=== PATIENT | male | born 1955 | race Caucasian/White ===

== ENCOUNTER → 2018-01-06 18:34 | Outpatient (REF) | payer MEDICARE, SELFPAY | LOC: LAB 18:34 | PROVIDERS: Visit Provider Podiatrist ==

== ENCOUNTER → 2018-01-21 10:39 | Outpatient (CLI) | payer MEDICARE, SELFPAY ==
--- NOTE | 2018-01-21 10:54 | US_ITS ---
US Arterial Ankle Brachial Ind INDICATION: Current smoker, hypertension, diabetes, hyperlipidemia, bilateral rest pain, bilateral claudication ORDERING PHYSICIAN: Melvi Velasquez DPM PATIENT AGE: 62 years TECHNIQUE: Segmental pressures obtained of both right and left leg. These are compared to brachial blood pressure to yield index at each level sampled including summary MANOLO. The data sheets from the procedure are available in PACS FINDINGS Rest study only performed today No prior studies available for comparison. Blood pressures reported are in millimeters mercury. RIGHT LEG MANLOO = 1.1. Right TBI 1.1 Brachial BP: 170 Thigh BP: 182 Calf BP: 179 Ankle PT: 186 Ankle DP : 191 Digit =169 LEFT LEG MANOLO = 1.1 Left TBI 1.1 Brachial BPD: 165 Thigh BP: 176 Calf BP: 186 Ankle PT:188 Ankle DP: 187 Digit = 167 Pulses and waveforms: Normal IMPRESSION: The ABIs and TBIs as reported above are within normal limits. Waveforms and pulses are also unremarkable.
== END ==
PROVIDERS: PCP Internal Medicine Adolescent Medicine; Visit Provider Podiatrist
DX: L97.929 Non-pressure chronic ulcer of unspecified part of left lower leg with unspecified severity (principal); I73.9 Peripheral vascular disease, unspecified
CPT/HCPCS: 93922

== ENCOUNTER → 2018-01-30 13:36 | Outpatient (POV) | payer MEDICARE, SELFPAY | PROVIDERS: PCP Internal Medicine Adolescent Medicine; Visit Provider Podiatrist | DX: Z00.00 Encounter for general adult medical examination without abnormal findings (principal) ==

== ENCOUNTER → 2018-02-02 12:01 | Outpatient (CLI) | payer MEDICARE, SELFPAY ==
[2018-02-02 13:47] LABS: Anion Gap 12.9 mEq/L (5-15); Blood Urea Nitrogen 14 mg/dL (7-18); Carbon Dioxide 32 mmol/L (21.0-32.0); Chloride 103 mmol/L (98-107); Creatinine,Serum 1.39 mg/dL (0.70-1.30); Estimated Glomerular Filt Rate 52 ml/min (>60); GFR (African American) 63 ML/MIN (>60); Glucose 93 mg/dL (74-106); Potassium 4.9 mmoL/L (3.5-5.1); Sodium 143 mmol/L (136-145)
== END ==
PROVIDERS: PCP Internal Medicine Adolescent Medicine; Visit Provider Internal Medicine Adolescent Medicine
DX: N18.1 Chronic kidney disease, stage 1 (principal); I12.9 Hypertensive chronic kidney disease with stage 1 through stage 4 chronic kidney disease, or unspecified chronic kidney disease
CPT/HCPCS: 36415; 80048

== ENCOUNTER → 2018-10-06 08:42 | Outpatient (CLI) | payer MEDICARE, SELFPAY ==
--- NOTE | 2018-10-06 08:46 | XR_ITS ---
XR DEXA axial skeleton HISTORY: ITS.REASON: AUTOMATION DEVELOPER USE OF STEROIDS ORDERING PHYSICIAN: Rick Barton MD PATIENT AGE: 62 years COMPARISON: None FINDINGS: The BMD measured at the Right femoral neck is 0.869 g/cm squared with a T score of -1.5. This is considered Osteopenic according to the World Health Organization criteria. Fracture risk is Moderate. Treatment is advised. Incidental note made of osteoarthritic changes of the hips IMPRESSION: Osteopenia with moderate fracture risk. Treatment suggested. Recommend follow-up exam September 2020
== END ==
PROVIDERS: PCP Internal Medicine Adolescent Medicine; Visit Provider Internal Medicine Adolescent Medicine
DX: Z79.52 Long term (current) use of systemic steroids (principal)
CPT/HCPCS: 77080

== ENCOUNTER → 2019-04-27 15:13 | Outpatient (POV) | payer MEDICARE, SELFPAY | PROVIDERS: Visit Provider Dermatology | DX: Z00.00 Encounter for general adult medical examination without abnormal findings (principal) ==

== ENCOUNTER → 2020-04-01 09:03 | Outpatient (CLI) | payer MEDICARE, SELFPAY ==
[2020-04-02 08:33] LABS: Covid-19 Nasal PCR Sendout UK NOT DETECTED
== END ==
PROVIDERS: Visit Provider Urology
DX: Z03.818 Encounter for observation for suspected exposure to other biological agents ruled out (principal)
CPT/HCPCS: U0003

== ENCOUNTER 2020-04-03 08:54 | Day surgery (SDC) | payer MEDICARE, SELFPAY ==
--- NOTE | 2020-03-29 11:20 | SUR.PREOP ---
03/29/20 @5778--PHONE CALL MADE TO PATIENT. PATIENT UNDERSTANDS THAT LAB WORK AND COVID TESTING NEEDS TO BE COMPLETED @ 0830 ON 04/01/20 PATIENT UNDERSTANDS IF LAB WORK AND COVID-19 TESTS ARE NOT COMPLETED BY 12PM ON THAT DATE, THE SURGERY SCHEDULED WILL BE CANCELLED AND RESCHEDULED FOR ANOTHER TIME.
[2020-03-30 11:09] VITALS: BMI 33.0
[2020-04-03 09:06] VITALS: BP 157/88; PULSE 72; RESP 22; TEMP 36.5; O2SAT 97
[2020-04-03 09:17] LABS: POC Glucose,Bedside 106 (70-110)
[2020-04-03 10:06] VITALS: BP 147/87; PULSE 59; RESP 18; TEMP 37.3; O2SAT 97
[2020-04-03 10:20] VITALS: BP 147/87; PULSE 59; RESP 18; TEMP 37.3; O2SAT 97
--- NOTE | 2020-04-03 12:51 | HMH.OPNOTE ---
Date of procedure: 04/03/20 Pre-op Diagnosis:: Gross hematuria Post-op Diagnosis:: Bladder cancer Procedure performed:: Cystourethroscopy, flexible Surgeon:: Simon Bonilla MD Anesthesia: local Estimated blood loss (mL): 0 Clinical Note:: 64-year-old white male with several episodes of gross hematuria couple of months ago but none since. CT scan was performed and is unremarkable. Operative findings:: Evidence of bladder tumor with small 5 mm papillary tumor at the rightward bladder base as well as some papillary changes at the left trigone. Operative note:: Patient taken to the operating suite on the stretcher. He was prepped and draped in the standard surgical fashion and 2% lidocaine placed into the urethra and the urethra clamped for 5 minutes. A flexible cystoscope introduced into the urethral meatus and passed to the prostatic urethra which showed some moderate bilateral hyperplasia. The bladder was entered and examined in a systematic fashion. There was a mild amount of trabeculation present but no diverticula or cellule formation. There was a small 5 mm papillary bladder tumor at the rightward bladder base as well as some papillary change of the left trigone. Scope was retroflexed showing a a small median lobe. Scope then removed. Patient tolerated procedure well there are no complications. We discussed the findings today and the need for cystoscopy and resection of the bladder tumor under general anesthesia. We will set this up at the patient's earliest convenience. Condition: stable Disposition: same day Specimens:: None Complications:: None
== END 2020-04-03 10:20 | disposition home or self-care (01) ==
LOC: OUTP 08:56
PROVIDERS: PCP Internal Medicine Adolescent Medicine; Visit Provider Urology
DX: R31.0 Gross hematuria (principal); E11.9 Type 2 diabetes mellitus without complications; Z79.899 Other long term (current) drug therapy; C67.9 Malignant neoplasm of bladder, unspecified
CPT/HCPCS: 52000; 82962

== ENCOUNTER → 2020-04-20 08:16 | Outpatient (CLI) | payer MEDICARE, SELFPAY ==
[2020-04-20 10:23] LABS: Coronavirus 19 IgG Antibody Negative (Negative); Coronavirus 19 IgM Antibody Negative (Negative)
== END ==
PROVIDERS: Visit Provider Urology
DX: Z01.818 Encounter for other preprocedural examination (principal); C67.9 Malignant neoplasm of bladder, unspecified
CPT/HCPCS: 36415; 86328

== ENCOUNTER 2020-04-21 08:34 | Day surgery (SDC) | payer MEDICARE, SELFPAY ==
--- NOTE | 2020-04-19 08:56 | SUR.PREOP ---
04/19/2020 @ 0900--PHONE CALL MADE TO PATIENT. PATIENT UNDERSTANDS THAT LAB WORK AND COVID TESTING NEEDS TO BE COMPLETED @ 0800 ON 04/20/2020. PATIENT UNDERSTANDS IF LAB WORK AND COVID-19 TESTS ARE NOT COMPLETED BY 12PM ON THAT DATE, THE SURGERY SCHEDULED WILL BE CANCELLED AND RESCHEDULED FOR ANOTHER TIME.
[2020-04-19 13:22] VITALS: BMI 32.3
[2020-04-21] VITALS (12 sets, daily range): BP systolic 93–156; BP diastolic 49–88; PULSE 56–70; RESP 15–20; TEMP 36.1–36.7; O2SAT 92–100
[2020-04-21 09:08] LABS: POC Glucose,Bedside 96 (70-110)
--- NOTE | 2020-04-21 11:04 | HMH.ANESCL ---
[facility] Anesthesia Checklist - Patient Identification Patient Identification: Arm Band, Verbal (Name & ) - Structural Data Admitted From: Home Planned Operative Procedure/s: TURBT Consent for Planned Operative Procedure(s) Verified: Yes Verified Documents: Surgical Consent, History and Physical - NPO Status Verified Time NPO: 23:00 - Chart Verification Results Verified: None - Additional verifications Anesthesia Reactions: No Hx Blood Transfusions: No Blood Transfusion Reaction: No - Airway Assessment C-Spine Mobility Assessed: Yes (Minimally able to move neck, fused neck due to ankylosing spondylosis) TMJ Mobility Assessed: Yes Dentition: Dentures-good fit (removed) - Neurological Assessment Level of Consciousness: Awake, Alert, Appropriate, Follows Commands Hx Seizures: No Numbness or tingling in extremities: No - Anesthesia Plan Anesthesia Risk discussed: Yes Anesthesia Plan: Verified ASA Class: III Anesthesia Type: General - Preoperative Comments Pre-Operative Comments: spoke with patient about positioning and neck ROM, pt told he will be able to position self to comfort. [facility] History I have reviewed the patient's past medical history: Yes Medical History: Reports:: Congestive Heart Failure, Diabetes Mellitus Type 2, Gastroesophageal Reflux Disease(GERD), Hyperlipidemia, Hypertension, Kidney Stones Denies:: Cancer, Diabetes Mellitus Type 1, Internal Pacemaker, MRSA, Seizures *Have you ever received a pneumonia vaccine?: Yes *Have you received a flu vaccine this season?: Yes Other Medical History: Reports: Arthritis, Other. Denies: Blood Transfusion Reaction Comment:: fatty liver, obesity, ankylosing spondylosis Anesthesia experience/problems:: No prior complications Laterality Cases: Bilateral: Other Other Surgeries: Yes: Appendectomy, Cardiac Catheterization, Cholecystectomy, Other. No: Pacemaker Amputation: No Fractures: Yes (back) - *Social History Educational Level: Completed High School Smoking Status: Current every day smoker Tobacco Type: cigarettes # Packs/Day (cigarettes): 2 #Yrs smoked (if former smoker): 30 Alcohol Intake: never Alcohol Intake Frequency:: other Substance Use Type: denies use *Occupational Status:: disabled Housing: house Household Members: spouse *Travel in the last 8 weeks: None Family Hx:: Hyperlipidemia, Hypertension, Stroke
--- NOTE | 2020-04-21 11:30 | HMH.ANESI ---
[facility] Anesthesia Record Part I Intake, IV Amount: 700 Estimated blood loss (mL): 25 Urine output (mL): 0 (NM) Blood Products used (#): none Blood Pressure: 110/56 SaO2: 97 Pulse Rate: 65 Respiratory Rate: 15 Temperature: 97.0 F Patient is:: Drowsy, Stable Stable to PACU at:: 11:27
--- NOTE | 2020-04-21 11:47 | HMH.OPNOTE ---
Date of procedure: 04/21/20 Pre-op Diagnosis:: Bladder cancer Post-op Diagnosis:: Bladder cancer Procedure performed:: TURBT 2 separate bladder tumors each 1 cm in size Surgeon:: Simon Bonilla MD SUPERVISOR SPECIAL EFFECTS:: Abdirahman Chappell Anesthesia: GETA Estimated blood loss (mL): 0 Clinical Note:: 64-year-old white male patient noted to have 2 small bladder tumors on local cystoscopy. Operative findings:: Bladder tumors noted include 1 at the posterior aspect of the bladder on the right side about 1 cm in size. The other tumor was noted medial to the left trigone. There was moderate prostatic hyperplasia. Operative note:: Patient taken to the operating room after informed consent was obtained. Was placed on the operating table in the supine position but then was head had to be elevated due to his ankylosing spondylitis and he was very stiff. General anesthesia was administered preoperative antibiotics and sequential compression devices placed. He was then placed into the dorsal lithotomy position. His hips were very stiff as well so his legs could not be very much at all. He was prepped and draped in the standard surgical fashion. The 24 Spanish resectoscope sheath then passed into the urethra after the urethra was dilated to 30 Spanish with [place] dilators. The obturator passed into the bladder under visual guidance. The bladder was again examined in a systematic fashion with a 30 degree lens. Again of note was the shallow 1 cm tumor noted in the rightward aspect of the posterior bladder and the papillary findings that the medial aspect of the left trigone. Our loop was then used to resect both tumors in their entirety and the base of the tumors were fulgurated. Specimen was sent off and scope was removed. A Arnold catheter was placed and patient tolerated procedure well. Discharged to recovery in stable condition. Condition: stable Disposition: PACU Specimens:: Bladder tumors Complications:: None
--- NOTE | 2020-04-21 11:55 | SUR.PHASEI ---
1147- pt awke at this time. brownlee in- draining blood tinged urine. pt c/o feeling to void. inst pt of brownlee and this will be removed in post op. no bleeding/oozing from penis. brownlee emptied at this time 150ml output. pt denies pain/discomfort. vitals stable.
--- NOTE | 2020-04-21 16:28 | P.PN_ITS ---
[facility] Anesthesia Record Part II Discharge Time: 13:05 Destination: Home PACU nurse assessment reviewed?: Yes Patient Condition:: Good Anesthesia Complications:: None Swallowing reflex intact?: Yes Cyanosis?: No Blood Pressure: 151/88 Pulse Rate: 62 Temperature: 98.1 F Mental Status: Alert & Oriented Pain level:: 2 Nausea and/or vomitting:: None Intake, IV Amount: 0
== END 2020-04-21 13:19 | disposition home or self-care (01) ==
LOC: OR 08:35
PROVIDERS: PCP Internal Medicine Adolescent Medicine; Visit Provider Urology
PROC: 0TBB8ZZ Excision of Bladder, Via Natural or Artificial Opening Endoscopic (ICD-10-PCS; CPT 52234; principal; 2020-04-21 09:45)
DX: C67.0 Malignant neoplasm of trigone of bladder (principal); C67.4 Malignant neoplasm of posterior wall of bladder; E11.9 Type 2 diabetes mellitus without complications; I10 Essential (primary) hypertension; Z79.899 Other long term (current) drug therapy
CPT/HCPCS: 52234; 82962; 88307; 96374; J2405

== ENCOUNTER → 2020-08-05 07:46 | Outpatient (CLI) | payer MEDICARE, SELFPAY ==
[2020-08-05 09:22] LABS: Coronavirus 19 IgG Antibody Negative (Negative); Coronavirus 19 IgM Antibody Negative (Negative)
== END ==
PROVIDERS: Visit Provider Urology
DX: Z03.818 Encounter for observation for suspected exposure to other biological agents ruled out (principal)
CPT/HCPCS: 36415; 86328

== ENCOUNTER 2020-08-07 08:17 | Day surgery (SDC) | payer MEDICARE, SELFPAY ==
[2020-08-03 15:41] VITALS: BMI 33.0
[2020-08-07 08:31] VITALS: BP 170/89; PULSE 59; RESP 18; TEMP 36.6; O2SAT 96
[2020-08-07 08:52] LABS: POC Glucose,Bedside 127 (70-110)
[2020-08-07 09:27] VITALS: BP 167/84; PULSE 59; RESP 18; TEMP 36.2; O2SAT 97
[2020-08-07 09:40] VITALS: BP 167/84; PULSE 59; RESP 18; O2SAT 97
--- NOTE | 2020-08-07 13:39 | HMH.OPNOTE ---
Date of procedure: 08/07/20 Pre-op Diagnosis:: History of bladder cancer Post-op Diagnosis:: No evidence of recurrent bladder cancer Procedure performed:: Surveillance cystoscopy Surgeon:: Simon Bonilla MD Anesthesia: local Estimated blood loss (mL): 0 Clinical Note:: 64-year-old white male status post TURBT with an initial bladder tumor in March. He returns today for his first surveillance cystoscopy. He denies any gross hematuria. Operative findings:: No evidence of recurrent bladder tumor. Operative note:: Patient taken to the treatment room after informed consent was obtained. On the stretcher he was prepped draped in the standard surgical fashion and 2% lidocaine placed into the urethra and urethra clamped for 5 minutes. Clamp and removed and the flexible cystoscope introduced into the urethral meatus. Passed to the prostatic urethra where some mild hyperplasia was noted. The bladder was entered and examined in a systematic fashion. There is no evidence of recurrent bladder tumors, stones, trabeculation or cellule formation. The ureteral orifices in the normal time position with clear reflux of urine. The bladder neck is within normal limits. The scope removed patient tolerated procedure well. We discussed the findings and we will see him back for surveillance cystoscopy in 4 months. Condition: stable Disposition: same day Specimens:: None Complications:: None
== END 2020-08-07 09:40 | disposition home or self-care (01) ==
LOC: OUTP 08:19
PROVIDERS: PCP Internal Medicine Adolescent Medicine; Visit Provider Urology
PROC: (CPT 52000; principal; 2020-08-07 09:00)
DX: Z86.018 Personal history of other benign neoplasm (principal); Z90.6 Acquired absence of other parts of urinary tract; Z09 Encounter for follow-up examination after completed treatment for conditions other than malignant neoplasm; E11.9 Type 2 diabetes mellitus without complications; K21.9 Gastro-esophageal reflux disease without esophagitis; I10 Essential (primary) hypertension; Z87.442 Personal history of urinary calculi; Z82.3 Family history of stroke; Z90.49 Acquired absence of other specified parts of digestive tract; E78.5 Hyperlipidemia, unspecified; Z79.899 Other long term (current) drug therapy
CPT/HCPCS: 52000; 82962

== ENCOUNTER → 2020-12-02 07:26 | Outpatient (CLI) | payer MEDICARE, OTHER, SELFPAY ==
[2020-12-02 08:33] LABS: Basophils # 0.1 K/mm3 (0-0.2); Basophils % 0.7 % (0.1-2.0); Eosinophils # 0.7 K/mm3 (0.0-0.4); Eosinophils % 6.8 % (0.1-12.0); Hematocrit 42.7 % (42.0-52.0); Hemoglobin 13.7 g/dL (14.1-18.0); Lymphocytes # 1.9 K/mm3 (0.7-4.5); Lymphocytes % 19.5 % (10-50); Mean Corpuscular HGB Conc 32.1 g/dL (31.8-35.4); Mean Corpuscular Hemoglobin 30.2 pg (27.0-31.2); Mean Corpuscular Volume 94.1 fl (80-94); Mean Platelet Volume 8.1 fl (7.4-10.4); Monocytes # 0.5 K/mm3 (0.1-1.0); Monocytes % 5.3 % (1.7-9.3); Neutrophils # 6.7 K/mm3 (1.8-7.8); Neutrophils % 67.7 % (37.0-80.0); Platelet Count 229 K/mm3 (142-424); Red Blood Count 4.53 M/mm3 (4.60-6.20); White Blood Count 9.9 K/mm3 (4.8-10.8)
[2020-12-02 08:48] LABS: Hemoglobin A1C 5.9 % (4.0-6.0)
[2020-12-02 08:55] LABS: Alanine Aminotransferase 27 U/L (12-78); Albumin Level 4.6 g/dl (3.5-5.0); Albumin/Globulin Ratio 1.4 (1.1-1.8); Alkaline Phosphatase 180 U/L (38-126); Anion Gap 12.6 mEq/L (5-15); Aspartate Amino Transferase 31 U/L (17-59); Bilirubin,Total 0.6 mg/dl (0.2-1.3); Blood Urea Nitrogen 19 mg/dl (9-20); Calcium 9.7 mg/dl (8.4-10.2); Carbon Dioxide 30 mmol/L (22.0-30.0); Chloride 103 mmol/L (98-107); Chol/HDL Ratio 2.6 (1-3.5); Cholesterol 142 mg/dl (140-200); Estimated Glomerular Filt Rate 51 ml/min (>60); GFR (African American) 62 ML/MIN (>60); Globulin 3.2 g/dL (1.3-3.2); Glucose 108 mg/dl (74-100); HDL Cholesterol 55 mg/dl (40-60); Potassium 3.6 mmoL/L (3.5-5.1); Sodium 142 mmol/L (136-145); Total Protein,Serum 7.8 g/dl (6.3-8.2); Triglycerides 112 mg/dl (30-150); VLDL Cholesterol 22 mg/dL (0-40)
[2020-12-02 09:06] LABS: Direct LDL Cholesterol 50.51 mg/dL (100-129)
[2020-12-02 09:25] LABS: Prostate Specific Ag Screen 1.3 ng/ml (0.0-4.0)
[2020-12-02 11:16] LABS: Coronavirus 19 IgG Antibody Negative (Negative); Coronavirus 19 IgM Antibody Negative (Negative)
== END ==
PROVIDERS: Internal Medicine Adolescent Medicine; Visit Provider Urology
DX: C67.9 Malignant neoplasm of bladder, unspecified (principal); E11.42 Type 2 diabetes mellitus with diabetic polyneuropathy; Z12.5 Encounter for screening for malignant neoplasm of prostate; Z01.812 Encounter for preprocedural laboratory examination; Z11.52 Encounter for screening for COVID-19; Z79.84 Long term (current) use of oral hypoglycemic drugs
CPT/HCPCS: 36415; 80053; 80061; 83036; 85025; 86328; G0103

== ENCOUNTER 2020-12-04 07:50 | Day surgery (SDC) | payer MEDICARE, OTHER, SELFPAY ==
[2020-11-28 12:46] VITALS: BMI 31.2
[2020-12-04 08:09] VITALS: BP 180/99; PULSE 65; RESP 18; TEMP 36.6; O2SAT 100
[2020-12-04 08:26] LABS: POC Glucose,Bedside 113 (70-110)
[2020-12-04 09:30] VITALS: BP 178/96; PULSE 60; RESP 16; TEMP 36.2; O2SAT 99
--- NOTE | 2020-12-04 10:48 | P.OP_ITS ---
Date of procedure: 12/04/20 Pre-op Diagnosis:: History of bladder cancer Post-op Diagnosis:: Same Procedure performed:: Surveillance cystoscopy Surgeon:: Simon Bonilla MD Anesthesia: local Estimated blood loss (mL): 0 Clinical Note:: 65-year-old white male with history of bladder cancer. His initial tumor was resected in March and he returns for second surveillance cystoscopy. He denies any gross hematuria or voiding difficulties. Operative findings:: Bladder shows no evidence of recurrent bladder tumors. Operative note:: Patient taken to the cystoscopy suite after informed consent was obtained. On the stretcher he was prepped and draped in the standard surgical fashion and 2% lidocaine placed into the urethra and clamped for 5 minutes. After 5 minutes the flexible cystoscope was introduced into the urethral meatus and passed to the prostatic urethra which showed some prostate enlargement with coapting pros cramer lobes. The bladder was entered and examined in a systematic fashion. There was some mild trabeculation present but no evidence of recurrent bladder tumors. There is no evidence of stones, diverticula or cellule formation. The ureteral orifices were in their normal anatomic position with clear efflux of urine. The scope was retroflexed showing a moderate sized median lobe. Scope then removed. Patient tolerated the procedure well and there were no complications. We discussed the findings and we will see him back in 4 months for repeat surveillance cystoscopy. Condition: stable Disposition: same day Specimens:: None Complications:: None
== END 2020-12-04 09:40 | disposition home or self-care (01) ==
LOC: OUTP 07:52
PROVIDERS: PCP Internal Medicine Adolescent Medicine; Visit Provider Urology
PROC: (CPT 52000; principal; 2020-12-04 09:00)
DX: Z09 Encounter for follow-up examination after completed treatment for conditions other than malignant neoplasm (principal); Z85.51 Personal history of malignant neoplasm of bladder; Z90.6 Acquired absence of other parts of urinary tract; E11.9 Type 2 diabetes mellitus without complications; Z83.3 Family history of diabetes mellitus; Z83.79 Family history of other diseases of the digestive system; Z82.49 Family history of ischemic heart disease and other diseases of the circulatory system; Z79.84 Long term (current) use of oral hypoglycemic drugs; Z79.899 Other long term (current) drug therapy
CPT/HCPCS: 52000; 82962

== ENCOUNTER → 2021-04-04 07:31 | Outpatient (CLI) | payer MEDICARE, OTHER, SELFPAY | PROVIDERS: Visit Provider Urology | DX: C67.9 Malignant neoplasm of bladder, unspecified (principal); Z11.52 Encounter for screening for COVID-19; Z01.812 Encounter for preprocedural laboratory examination | CPT/HCPCS: U0003 ==

== ENCOUNTER 2021-04-06 08:11 | Day surgery (SDC) | payer MEDICARE, OTHER, SELFPAY ==
[2021-04-04 12:57] VITALS: BMI 31.5
[2021-04-06 08:27] VITALS: BP 158/65; PULSE 62; RESP 22; TEMP 36.2; O2SAT 98
[2021-04-06 08:40] LABS: POC Glucose,Bedside 132 (70-110)
[2021-04-06 09:35] VITALS: BP 151/83; PULSE 54; RESP 20; TEMP 36.3; O2SAT 96
[2021-04-06 10:39] VITALS: BP 151/83; PULSE 54; RESP 20
--- NOTE | 2021-04-06 11:10 | HMH.OPNOTE ---
Date of procedure: 04/06/21 Pre-op Diagnosis:: History of bladder cancer Post-op Diagnosis:: No evidence of bladder cancer recurrence today Procedure performed:: Cystoscopy Surgeon:: Simon Bonilla MD Anesthesia: local Estimated blood loss (mL): 0 Clinical Note:: Patient is a 65-year-old white male with a history of bladder cancer. TURBT was performed in March 2020 and patient presents for surveillance cystoscopy. He denies any interval hematuria. Operative findings:: No evidence of bladder tumor recurrence today. Operative note:: Patient taken to the cystoscopy suite after informed consent was obtained. On the stretcher he was prepped and draped in the standard surgical fashion and 2% lidocaine placed into the urethra and the urethra clamped for 5 minutes. After 5 minutes the clamp removed and the flexible cystoscope introduced into the urethral meatus. Passed to the prostatic urethra difficulty. There was some moderate bilobar hyperplasia. The scope passed into the bladder and examined in a systematic fashion. There was no evidence bladder tumor recurrence, mucosal abnormalities, stones, trabeculation or cellule formation. The ureteral orifices in their normal anatomic position and clear efflux of urine was noted. Scope was retroflexed showing a small median lobe. Scope then removed. Patient tolerated procedure well there are no complications. We will see him back in 6 months for surveillance. Condition: stable Disposition: same day Specimens:: None Complications:: None
== END 2021-04-06 09:35 | disposition home or self-care (01) ==
LOC: OUTP 08:13
PROVIDERS: PCP Internal Medicine Adolescent Medicine; Visit Provider Urology
DX: Z85.51 Personal history of malignant neoplasm of bladder (principal); E11.9 Type 2 diabetes mellitus without complications; K21.9 Gastro-esophageal reflux disease without esophagitis; I10 Essential (primary) hypertension; Z87.442 Personal history of urinary calculi; Z90.49 Acquired absence of other specified parts of digestive tract; Z79.84 Long term (current) use of oral hypoglycemic drugs; Z79.899 Other long term (current) drug therapy
CPT/HCPCS: 52000; 82962

== ENCOUNTER → 2021-05-09 11:55 | Outpatient (CLI) | payer MEDICARE, OTHER, SELFPAY ==
[2021-05-09 13:07] LABS: Anion Gap 14.4 mEq/L (5-15); Blood Urea Nitrogen 31 mg/dl (9-20); Calcium 9.4 mg/dl (8.4-10.2); Carbon Dioxide 25 mmol/L (22.0-30.0); Chloride 106 mmol/L (98-107); Estimated Glomerular Filt Rate 30 ml/min (>60); GFR (African American) 37 ML/MIN (>60); Glucose 155 mg/dl (74-100); Potassium 5.4 mmoL/L (3.5-5.1); Sodium 140 mmol/L (136-145)
== END ==
PROVIDERS: Visit Provider Internal Medicine Adolescent Medicine
DX: I10 Essential (primary) hypertension (principal)
CPT/HCPCS: 36415; 80048

== ENCOUNTER → 2021-08-15 09:13 | Outpatient (CLI) | payer MEDICARE, OTHER, SELFPAY ==
[2021-08-15 09:46] LABS: Basophils # 0.1 K/mm3 (0-0.2); Basophils % 0.8 % (0.1-2.0); Eosinophils # 0.6 K/mm3 (0.0-0.4); Eosinophils % 5.4 % (0.1-12.0); Hematocrit 43.6 % (42.0-52.0); Hemoglobin 13.9 g/dL (14.1-18.0); Lymphocytes # 1.3 K/mm3 (0.7-4.5); Lymphocytes % 11.9 % (10-50); Mean Corpuscular HGB Conc 31.9 g/dL (31.8-35.4); Mean Corpuscular Hemoglobin 31.7 pg (27.0-31.2); Mean Corpuscular Volume 99.3 fl (80-94); Monocytes # 0.6 K/mm3 (0.1-1.0); Neutrophils # 8.6 K/mm3 (1.8-7.8); Neutrophils % 76.9 % (37.0-80.0); Platelet Count 258 K/mm3 (142-424); Red Blood Count 4.39 M/mm3 (4.60-6.20); Red Cell Distribution Width 14.6 % (11.5-17.5); White Blood Count 11.2 K/mm3 (4.8-10.8)
[2021-08-15 10:11] LABS: Hemoglobin A1C 6.5 % (4.0-6.0)
[2021-08-15 11:02] LABS: Alanine Aminotransferase 31 U/L (12-78); Albumin Level 4.6 g/dl (3.5-5.0); Albumin/Globulin Ratio 1.4 (1.1-1.8); Alkaline Phosphatase 109 U/L (38-126); Anion Gap 13.9 mEq/L (5-15); Aspartate Amino Transferase 30 U/L (17-59); Bilirubin,Total 0.6 mg/dl (0.2-1.3); Blood Urea Nitrogen 23 mg/dl (9-20); Calcium 9.7 mg/dl (8.4-10.2); Carbon Dioxide 28 mmol/L (22.0-30.0); Chloride 105 mmol/L (98-107); Chol/HDL Ratio 2.8 (1-3.5); Cholesterol 127 mg/dl (140-200); Estimated Glomerular Filt Rate 44 ml/min (>60); GFR (African American) 53 ML/MIN (>60); Globulin 3.2 g/dL (1.3-3.2); Glucose 113 mg/dl (74-100); HDL Cholesterol 46 mg/dl (40-60); Potassium 4.9 mmoL/L (3.5-5.1); Sodium 142 mmol/L (136-145); Total Protein,Serum 7.8 g/dl (6.3-8.2); Triglycerides 129 mg/dl (30-150); VLDL Cholesterol 26 mg/dL (0-40)
[2021-08-15 11:14] LABS: Direct LDL Cholesterol 51.96 mg/dL (100-129)
== END ==
PROVIDERS: Visit Provider Internal Medicine Adolescent Medicine
DX: E11.9 Type 2 diabetes mellitus without complications (principal); E11.69 Type 2 diabetes mellitus with other specified complication; N18.1 Chronic kidney disease, stage 1; Z79.84 Long term (current) use of oral hypoglycemic drugs
CPT/HCPCS: 36415; 80053; 80061; 83036; 85025

== ENCOUNTER → 2021-10-05 07:31 | Outpatient (CLI) | payer MEDICARE, OTHER, SELFPAY | PROVIDERS: Visit Provider Urology | DX: C67.9 Malignant neoplasm of bladder, unspecified (principal); Z01.812 Encounter for preprocedural laboratory examination; U07.1 COVID-19 | CPT/HCPCS: C9803; U0003; U0005 ==

== ENCOUNTER → 2021-11-12 12:52 | Outpatient (CLI) | payer MEDICARE, OTHER, SELFPAY ==
[2021-11-12 15:00] LABS: Chloride 101 mmol/L (98-107); Potassium 4.7 mmoL/L (3.5-5.1); Sodium 141 mmol/L (136-145)
[2021-11-12 15:02] LABS: Blood Urea Nitrogen 24 mg/dl (9-20); Estimated Glomerular Filt Rate 41 ml/min (>60); GFR (African American) 49 ML/MIN (>60)
[2021-11-12 15:03] LABS: Alanine Aminotransferase 38 U/L (12-78); Albumin Level 4.5 g/dl (3.5-5.0); Albumin/Globulin Ratio 1.6 (1.1-1.8); Alkaline Phosphatase 114 U/L (38-126); Anion Gap 17.7 mEq/L (5-15); Aspartate Amino Transferase 33 U/L (17-59); Bilirubin,Total 0.6 mg/dl (0.2-1.3); Calcium 9.7 mg/dl (8.4-10.2); Carbon Dioxide 27 mmol/L (22.0-30.0); Globulin 2.9 g/dL (1.3-3.2); Glucose 87 mg/dl (74-100); Total Protein,Serum 7.4 g/dl (6.3-8.2)
[2021-11-12 15:36] LABS: Basophils # 0.1 K/mm3 (0-0.2); Basophils % 0.8 % (0.1-2.0); Eosinophils # 0.5 K/mm3 (0.0-0.4); Eosinophils % 4.3 % (0.1-12.0); Hematocrit 41.4 % (42.0-52.0); Hemoglobin 13.5 g/dL (14.1-18.0); Lymphocytes # 1.3 K/mm3 (0.7-4.5); Lymphocytes % 11.9 % (10-50); Mean Corpuscular HGB Conc 32.5 g/dL (31.8-35.4); Mean Corpuscular Hemoglobin 31.3 pg (27.0-31.2); Mean Corpuscular Volume 96.2 fl (80-94); Monocytes # 0.6 K/mm3 (0.1-1.0); Monocytes % 5.8 % (1.7-9.3); Neutrophils # 8.5 K/mm3 (1.8-7.8); Neutrophils % 77.3 % (37.0-80.0); Platelet Count 224 K/mm3 (142-424); Red Cell Distribution Width 13.7 % (11.5-17.5)
[2021-11-12 16:00] LABS: Hemoglobin A1C 6.2 % (4.0-6.0)
== END ==
PROVIDERS: Visit Provider Internal Medicine Adolescent Medicine
DX: E11.9 Type 2 diabetes mellitus without complications (principal); N18.1 Chronic kidney disease, stage 1; Z79.84 Long term (current) use of oral hypoglycemic drugs
CPT/HCPCS: 36415; 80053; 83036; 85025

== ENCOUNTER → 2021-12-24 10:33 | Outpatient (CLI) | payer MEDICARE, OTHER, SELFPAY ==
--- NOTE | 2021-12-24 10:38 | XR_ITS ---
FINAL REPORT CLINICAL HISTORY: COUGH,FEVER, UNSPECIFIED FEVER CAUSE COMPARISON: November 06, 2016 FINDINGS: Two views of the chest were obtained. The heart size and pulmonary vascularity are within normal limits. The mediastinum is normal. No acute pulmonary abnormality is identified. There is no pneumothorax. The bony thorax is intact. IMPRESSION: No active cardiopulmonary disease. Reviewed, Interpreted and Dictated by Shai Rosario III, MD Transcribed by Sharon Mathews Authenticated by Shai Rosario III, MD on 12/24/2021 01:09:02 PM [facility]
== END ==
PROVIDERS: PCP Nurse Practitioner Family; Visit Provider Nurse Practitioner Family
DX: R05.9 Cough, unspecified (principal); R50.9 Fever, unspecified
CPT/HCPCS: 71046

== ENCOUNTER → 2022-01-11 07:33 | Outpatient (CLI) | payer MEDICARE, OTHER, SELFPAY ==
[2022-01-11 09:02] LABS: Basophils # 0.1 K/mm3 (0-0.2); Basophils % 0.7 % (0.1-2.0); Eosinophils # 0.5 K/mm3 (0.0-0.4); Eosinophils % 4.5 % (0.1-12.0); Hematocrit 40.2 % (42.0-52.0); Hemoglobin 12.8 g/dL (14.1-18.0); Lymphocytes # 2.4 K/mm3 (0.7-4.5); Lymphocytes % 20.7 % (10-50); Mean Corpuscular HGB Conc 31.8 g/dL (31.8-35.4); Mean Corpuscular Hemoglobin 30.3 pg (27.0-31.2); Mean Corpuscular Volume 95.4 fl (80-94); Mean Platelet Volume 8.1 fl (7.4-10.4); Monocytes # 0.5 K/mm3 (0.1-1.0); Neutrophils # 8.1 K/mm3 (1.8-7.8); Neutrophils % 70.2 % (37.0-80.0); Platelet Count 294 K/mm3 (142-424); Red Blood Count 4.22 M/mm3 (4.60-6.20); Red Cell Distribution Width 14.3 % (11.5-17.5); White Blood Count 11.6 K/mm3 (4.8-10.8)
[2022-01-11 09:08] LABS: Chloride 104 mmol/L (98-107); Potassium 4.7 mmoL/L (3.5-5.1); Sodium 136 mmol/L (136-145)
[2022-01-11 09:11] LABS: Alanine Aminotransferase 32 U/L (12-78); Albumin Level 4.4 g/dl (3.5-5.0); Albumin/Globulin Ratio 1.5 (1.1-1.8); Alkaline Phosphatase 108 U/L (38-126); Anion Gap 10.7 mEq/L (5-15); Aspartate Amino Transferase 31 U/L (17-59); Bilirubin,Total 0.5 mg/dl (0.2-1.3); Blood Urea Nitrogen 18 mg/dl (9-20); Calcium 9.1 mg/dl (8.4-10.2); Carbon Dioxide 26 mmol/L (22.0-30.0); Estimated Glomerular Filt Rate 47 ml/min (>60); GFR (African American) 57 ML/MIN (>60); Globulin 2.9 g/dL (1.3-3.2); Glucose 135 mg/dl (74-100); Total Protein,Serum 7.3 g/dl (6.3-8.2)
[2022-01-11 09:17] LABS: C-Reactive Protein 1.3 mg/L (0-4)
[2022-01-11 10:30] LABS: Erythrocyte Sedimentation Rate 42 mm/hr (0-20)
[2022-01-12 12:10] LABS: Hep A Ab, IgM Negative (Negative); Hepatitis B Core Antibody IgM Negative (Negative); Hepatitis B Surface Antigen Negative (Negative); Hepatitis C Antibody <0.1 s/co ratio (0.0-0.9)
== END ==
PROVIDERS: Visit Provider Nurse Practitioner Family
DX: D89.9 Disorder involving the immune mechanism, unspecified (principal); M45.9 Ankylosing spondylitis of unspecified sites in spine; R53.83 Other fatigue
CPT/HCPCS: 36415; 80053; 80074; 85025; 85651; 86140

== ENCOUNTER → 2022-01-14 07:37 | Outpatient (CLI) | payer MEDICARE, OTHER, SELFPAY ==
[2022-01-16 22:25] LABS: QuantiFERON-TB Gold Plus Negative (Negative)
== END ==
PROVIDERS: Visit Provider Nurse Practitioner Family
DX: D89.9 Disorder involving the immune mechanism, unspecified (principal); R53.83 Other fatigue; M45.9 Ankylosing spondylitis of unspecified sites in spine
CPT/HCPCS: 36415; 86480

== ENCOUNTER → 2022-01-21 13:20 | Outpatient (POV) | payer MEDICARE, OTHER, SELFPAY ==
[2022-01-21 13:49] VITALS: BP 184/94; PULSE 64; RESP 20; TEMP 36.8; O2SAT 98; BMI 32.6
--- NOTE | 2022-01-21 14:21 | XR_ITS ---
FINAL REPORT CLINICAL HISTORY: . Patient ankylosing spondylitis he states. He is very large and extremely kyphotic. Best images possible due to patient's poor condition. Patient is supposed to have MRI of the spine this Friday if he can tolerate lying down. FINDINGS: CERVICAL SPINE Five views were obtained. There is fusion of C2-C7 consistent with ankylosing spondylitis. There is no acute bony abnormality. There are mild and moderate degenerative changes. There is no malalignment. There is no soft tissue abnormality. IMPRESSION: Findings consistent with ankylosing spondylitis. No acute bony abnormality is identified. THORACIC SPINE Three views were obtained. There is fusion throughout the thoracic spine consistent with ankylosing spondylitis. There is no acute fracture. There is no malalignment. There is moderate diffuse kyphosis. There are ovml-yc-[id number] degenerative changes. There is no soft tissue abnormality. IMPRESSION: Findings consistent with ankylosing spondylitis. LUMBAR SPINE Five views were obtained. There is fusion of L1-L5 consistent with ankylosing spondylitis. There is no acute fracture. There is no malalignment. There are moderate degenerative changes. There are vascular calcifications. IMPRESSION: Findings consistent with ankylosing spondylitis. Reviewed, Interpreted and Dictated by Shai Rosario III, MD Transcribed by Sharon Mathews Authenticated by Shai Rosario III, MD on 01/21/2022 04:38:53 PM [facility]
--- NOTE | 2022-01-26 14:08 | HMH.PMCON ---
Assessment and Plan (1) Degenerative joint disease (DJD) of lumbar spine Status: Acute Category: Medical Code(s): M47.816 - Spondylosis without myelopathy or radiculopathy, lumbar region (2) Lumbar radicular pain Status: Acute Category: Medical Code(s): M54.16 - Radiculopathy, lumbar region (3) Degenerative disc disease, cervical Status: Acute Category: Medical Code(s): M50.30 - Other cervical disc degeneration, unspecified cervical region (4) Cervical radiculopathy Status: Acute Category: Medical Code(s): M54.12 - Radiculopathy, cervical region I discussed with the patient we will order XRays of the cervical, thoracic, and lumbar spine. We will also order MRI of the lumbar spine without contrast. We will review imaging first but I believe he would benefit from a lumbar epidural steroid injection. He also may be a candidate for intrathecal pump therapy in the future. [place]ine and prior drug screens were reviewed and appropriate. HPI - Data of Consult Patient: new to practice Consult date: 01/21/22 Requesting Physician: Shawna Rodrigues MD Primary Care Provider: Rick Barton MD - Consult Narrative Reason for consult: chronic pain History of present illness: Mr. Martin is a 66 year old white male who presents today for initial consultation for his chronic pain symptoms. He has a history of ankylosing spondylitis as well as chronic low back pain radiating into his legs, bilateral knee pain, and neck pain radiating into his arms. He states he has been having severe chronic pain throughout his body for many years now that is gradually worsening over time. 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 He states he experiences pain daily and describes it is a deep aching pain as baseline with sharp shooting exacerbations down his arms and legs. He rates his pain as a 4 out of 10. He has trialed OTC tylenol and ibuprofen with very minimal relief as well as ice/heat therapy. He denies having any recent imaging done. CC: Shawna Rodrigues [facility] History Medical History: Reports:: Cancer (bladder CA), Congestive Heart Failure, Diabetes Mellitus Type 2, Gastroesophageal Reflux Disease(GERD), Hyperlipidemia, Hypertension, Kidney Stones Denies:: Diabetes Mellitus Type 1, Internal Pacemaker, MRSA, Seizures *Have you ever received a pneumonia vaccine?: Yes *Have you received a flu vaccine this season?: Yes Other Medical History: Reports: Arthritis, Other. Denies: Blood Transfusion Reaction Laterality Cases: Bilateral: Other Other Surgeries: Yes: Appendectomy, Cardiac Catheterization, Cholecystectomy, Other (TURP, elbow). No: Pacemaker Amputation: No Fractures: Yes (back) - *Social History Smoking Status: Current every day smoker Tobacco Type: cigarettes # Packs/Day (cigarettes): 1 #Yrs smoked (if former smoker): 30 Alcohol Intake: never Alcohol Intake Frequency:: other Substance Use Type: denies use *Occupational Status:: retired Housing: house Household Members: other *Travel in the last 8 weeks: None Family Hx:: Hyperlipidemia, Hypertension, Stroke Review of Systems - Review of Systems Review of systems:: pertinent systems reviewed and negative unless documented below Meds Home Medications Medication Instructions Recorded Confirmed Type atorvastatin 80 mg tablet 80 mg PO DAILY 90 Days tab 01/06/18 01/21/22 History baclofen 20 mg tablet 20 mg PO TID 90 Days tab 01/06/18 01/21/22 History glucosamine sulfate 500 tab PO DAILY 01/06/18 10/22/21 History bybhbtz-MKI-yjwijcqwvt 500 mg-250 mg-400 mg tablet omeprazole 20 mg capsule,delayed 20 mg PO DAILY 90 Days cap 01/06/18 01/21/22 History release prednisone 5 mg tablet 5 mg PO DAILY 90 Days tab 01/06/18 01/21/22 History tramadol 50 mg tablet 50 mg PO QID 30 Days tab 01/06/18 10/22/21 History triamcinolone acetonide 0.1 % 1 applic TOPICAL TID #30 g 01/06/18 10/22/21 Rx topical cream
== END ==
PROVIDERS: PCP Internal Medicine Adolescent Medicine; Visit Provider Anesthesiology Pain Medicine
DX: M47.896 Other spondylosis, lumbar region (principal); M54.16 Radiculopathy, lumbar region; M50.10 Cervical disc disorder with radiculopathy, unspecified cervical region
CPT/HCPCS: 72084; 99202; G0463

== ENCOUNTER → 2022-01-24 14:42 | Outpatient (CLI) | payer MEDICARE, OTHER, SELFPAY ==
--- NOTE | 2022-01-24 15:16 | MR_ITS ---
FINAL REPORT CLINICAL HISTORY: ANKYLYSING SPONDYLOSIS. LBP. NO RECENT INJURY OR TRAUMA. FINDINGS: Multiplanar MR imaging of the lumbar spine was performed without contrast. On the sagittal T2-weighted images, disc degeneration is seen at several levels. The vertebral alignment is normal. There are endplate changes at L2-3. There is mild L3 superior endplate compression fracture which appears chronic. The conus has an unremarkable appearance. T12-L1: An annular bulge is present. There is no significant canal stenosis or neural foraminal narrowing. L1-2: An annular bulge is present. There is no significant canal stenosis or neural foraminal narrowing. L2-3: An annular bulge is present. Facet arthropathy and osteophytes are present. There is mild left neural foraminal narrowing. L3-4: An annular bulge and facet arthropathy are present. There is mild left neural foraminal narrowing. L4-5: An annular bulge and facet arthropathy are present. There is mild left neural foraminal narrowing. L5-S1: An annular bulge is present. Facet arthropathy and osteophytes are present. There is a small right paracentral annular tear and disc protrusion. There is mild left neural foraminal narrowing. Note is made of spurring of the sacroiliac joints. IMPRESSION: Multilevel degenerative disc disease and spondylosis. Small right paracentral annular tear and disc protrusion at L5-S1. Mild L3 compression fracture, appears chronic. Reviewed, Interpreted and Dictated by Shai Rosario III, MD Transcribed by Brenda Mcpherson Authenticated by Shai Rosario III, MD on 01/24/2022 04:36:02 PM [facility]
== END ==
PROVIDERS: PCP Internal Medicine Adolescent Medicine; Visit Provider Anesthesiology Pain Medicine
DX: M54.2 Cervicalgia (principal); M54.6 Pain in thoracic spine; M54.50 Low back pain, unspecified; M45.6 Ankylosing spondylitis lumbar region
CPT/HCPCS: 72148; 76376

== ENCOUNTER 2022-02-04 21:28 | Observation (INO) | payer MEDICARE, OTHER, SELFPAY ==
--- NOTE | 2022-02-04 21:17 | ECG_ITS ---
APPROVED REPORT Exam: Resting ECG HR:56 bpm ECG Measurements Heart Rate 56 AXES DE 184 P 73 QRSd 109 QRS -21 QT 443 T 52 QTc 435 Conclusion SINUS BRADYCARDIA BORDERLINE LEFT AXIS DEVIATION [QRS AXIS < -20] VOLTAGE CRITERIA FOR LVH [MEETS CRITERIA IN ONE OF: R(aVL), S(V1), R(V5), R(V5/V6)+S(V1)] ABNORMAL ECG UNCONFIRMED REPORT Electronically signed by : Rick Barton MD 02/05/2022 14:06:23
[2022-02-04 21:28] VITALS: BP 209/112; PULSE 60; RESP 20; TEMP 36.8; O2SAT 99; BMI 32.5
[2022-02-04 21:32] VITALS: BMI 32.5
--- NOTE | 2022-02-04 21:32 | CT_ITS ---
PROCEDURE INFORMATION: Exam: CT Head Without Contrast Exam date and time: 02/04/2022 9:32 PM Age: 66 years old Clinical indication: Altered mental status/memory loss; Additional info: Confusion TECHNIQUE: Imaging protocol: Computed tomography of the head without contrast. Radiation optimization: All CT scans at this facility use at least one of these dose optimization techniques: automated exposure control; mA and/or kV adjustment per patient size (includes targeted exams where dose is matched to clinical indication); or iterative reconstruction. Other technique: STROKE PROTOCOL was implemented. COMPARISON: No relevant prior studies available. FINDINGS: Brain: Mild periventricular white matter disease. There is no area of intraparenchymal or extra-axial hemorrhage present. There is no focal mass. There is no midline shift. The daniels-white matter junction is intact. Cerebral ventricles: No ventriculomegaly. Paranasal sinuses: Visualized sinuses are unremarkable. No fluid levels. Mastoid air cells: Visualized mastoid air cells are well aerated. Bones/joints: Unremarkable. No acute fracture. Soft tissues: The soft tissues are unremarkable. IMPRESSION: 1. Mild periventricular white matter disease. 2. Otherwise unremarkable examination of the brain. There is no acute intracranial abnormality. ASSESSMENT: ASPECTS (Kathia Stroke Program Early CT Score) is 10.
[2022-02-04 21:44] LABS: Basophils # 0.1 K/mm3 (0-0.2); Basophils % 0.9 % (0.1-2.0); Eosinophils # 0.6 K/mm3 (0.0-0.4); Eosinophils % 5.4 % (0.1-12.0); Hematocrit 39.3 % (42.0-52.0); Hemoglobin 12.7 g/dL (14.1-18.0); Lymphocytes # 2.1 K/mm3 (0.7-4.5); Lymphocytes % 20.9 % (10-50); Mean Corpuscular HGB Conc 32.2 g/dL (31.8-35.4); Mean Corpuscular Hemoglobin 31.3 pg (27.0-31.2); Mean Corpuscular Volume 97.1 fl (80-94); Mean Platelet Volume 8.9 fl (7.4-10.4); Monocytes # 0.6 K/mm3 (0.1-1.0); Monocytes % 5.6 % (1.7-9.3); Neutrophils # 6.8 K/mm3 (1.8-7.8); Neutrophils % 67.1 % (37.0-80.0); Platelet Count 232 K/mm3 (142-424); Red Blood Count 4.05 M/mm3 (4.60-6.20); Red Cell Distribution Width 15.1 % (11.5-17.5); White Blood Count 10.1 K/mm3 (4.8-10.8)
--- NOTE | 2022-02-04 21:45 | CT_ITS ---
PROCEDURE INFORMATION: Exam: CT Cervical Spine Without Contrast Exam date and time: 02/04/2022 9:45 PM Age: 66 years old Clinical indication: Injury or trauma; Other: Syncope; Blunt trauma; Additional info: Syncopy TECHNIQUE: Imaging protocol: Computed tomography images of the cervical spine without contrast. Radiation optimization: All CT scans at this facility use at least one of these dose optimization techniques: automated exposure control; mA and/or kV adjustment per patient size (includes targeted exams where dose is matched to clinical indication); or iterative reconstruction. COMPARISON: CR XR MULTIPLE SPINE 6+V 01/21/2022 2:25 PM FINDINGS: Bones/joints: Diffuse fusion of the vertebral bodies. The vertebral bodies are normal height and alignment. There is no anterior or retrolisthesis. There is no fracture present. The atlanto dens interval is intact. There is no dens fracture. Discs/Spinal canal/Neural foramina: There is no evidence for ligamentous injury. Prevertebral Space: There is no abnormality of the prevertebral soft tissues. Lungs: Lung apices are normal. Soft tissues: Unremarkable. IMPRESSION: 1. No evidence for significant traumatic injury to the cervical spine. 2. Ankylosing spondylitis.
--- NOTE | 2022-02-04 21:46 | XR_ITS ---
PROCEDURE INFORMATION: Exam: XR Chest Exam date and time: 02/04/2022 9:46 PM Age: 66 years old Clinical indication: Injury or trauma; Other: Sycnope; Blunt trauma (contusions or hematomas); Additional info: Syncope TECHNIQUE: Imaging protocol: XR of the chest. Views: 1 view. COMPARISON: CR XR CHEST 2V 12/24/2021 10:41 AM FINDINGS: Lungs: Coarse interstitial lung markings likely chronic. Granulomatous change. No consolidation. Pleural spaces: Unremarkable. No pleural effusion. No pneumothorax. Heart/Mediastinum: Unremarkable. No cardiomegaly. Bones/joints: Unremarkable. IMPRESSION: No acute findings.
--- NOTE | 2022-02-04 21:47 | XR_ITS ---
PROCEDURE INFORMATION: Exam: XR Pelvis Exam date and time: 02/04/2022 9:47 PM Age: 66 years old Clinical indication: Injury or trauma; Other: Syncope; Blunt trauma (contusions or hematomas); Does not apply; Pelvic region TECHNIQUE: Imaging protocol: XR pelvis. Views: 1 or 2 view. COMPARISON: PELWO CT PELVIS W/O CONTRAST 04/13/2017 1:44 PM FINDINGS: Bones/joints: Unremarkable. No acute fracture. Soft tissues: Unremarkable. IMPRESSION: No acute findings.
[2022-02-04 21:51] LABS: Alanine Aminotransferase 36 U/L (12-78); Albumin Level 4.4 g/dl (3.5-5.0); Albumin/Globulin Ratio 1.5 (1.1-1.8); Alkaline Phosphatase 95 U/L (38-126); Amylase 103 U/L (30-110); Anion Gap 9.2 mEq/L (5-15); Aspartate Amino Transferase 33 U/L (17-59); Bilirubin,Total 0.7 mg/dl (0.2-1.3); Blood Urea Nitrogen 19 mg/dl (9-20); Calcium 9.1 mg/dl (8.4-10.2); Carbon Dioxide 27 mmol/L (22.0-30.0); Chloride 106 mmol/L (98-107); Creatinine Clearance Estimated 78 mL/min (50-200); Estimated Glomerular Filt Rate 51 ml/min (>60); GFR (African American) 61 ML/MIN (>60); Globulin 2.9 g/dL (1.3-3.2); Glucose 121 mg/dl (74-100); Lipase 117 U/L (23-300); Potassium 4.2 mmoL/L (3.5-5.1); Sodium 138 mmol/L (136-145); Total Protein,Serum 7.3 g/dl (6.3-8.2)
[2022-02-04 21:56] LABS: C-Reactive Protein 1.1 mg/L (0-4)
--- NOTE | 2022-02-04 22:06 | HMH.EDSYNC ---
ED Disposition Clinical Impression: Vertigo, Hypertensive urgency Disposition: Admitted as Observation Condition on Discharge: Good Instructions: DI for Syncope in Adults (Fainting), DI for Syncope in Children (Fainting) Referrals: Rick Barton MD [Primary Care Provider] - - Critical Care Critical Care Time: No Attestation: On 02/04/22, the high probability of a clinically significant, sudden or life threatening deterioration of the following system(s) required my full and direct attention, intervention and personal management. The time I documented below is in addition to time spent performing reported procedures but includes the following listed in this critical care notation. Medical Decision Making - Medical Records Medical records reviewed: Yes: I reviewed the patient's medical records. - [place] Inquiry Pt receiving controlled substance: No Vital Signs: 02/04/22 21:28 02/04/22 22:10 02/04/22 22:31 Temperature 98.3 F Temperature Source Oral Pulse Rate 56 L 53 L Pulse Rate [Apical] 60 Respiratory Rate 20 Blood Pressure 186/96 H 175/86 H Blood Pressure [Right Arm] 209/112 H Blood Pressure Mean 123 115 Blood Pressure Mean [Right Arm] 144 Blood Pressure Source [Right Arm] Automatic Cuff Blood Pressure Position [Right Arm] Sitting 02 Sat by Pulse Oximetry 99 97 99 Oxygen Delivery Method Room Air - Lab Data Lab results reviewed: Yes: I reviewed the patient's lab results. Lab Results 02/04/22 21:25: WBC 10.1, RBC 4.05 L, Hgb 12.7 L, Hct 39.3 L, MCV 97.1 H, MCH 31.3 H, MCHC 32.2, RDW 15.1, Plt Count 232, MPV 8.9, Neut % (Auto) 67.1, Lymph % (Auto) 20.9, Lee % (Auto) 5.6, Eos % (Auto) 5.4, Baso % (Auto) 0.9, Neut # (Auto) 6.8, Lymph # (Auto) 2.1, Lee # (Auto) 0.6, Eos # (Auto) 0.6 H, Baso # (Auto) 0.1, ESR 33 H 02/04/22 21:25: Sodium 138, Potassium 4.2, Chloride 106, Carbon Dioxide 27, Anion Gap 9.2, BUN 19, Creatinine 1.40 H, Estimated Creat Clear 78, Estimated GFR 51 L, Est GFR ( Amer) 61, Glucose 121 H, Calcium 9.1, Total Bilirubin 0.7, AST 33, ALT 36, Alkaline Phosphatase 95, Troponin I < 0.01, C-Reactive Protein 1.1, Total Protein 7.3, Albumin 4.4, Globulin 2.9, Albumin/Globulin Ratio 1.5, Amylase 103, Lipase 117, Procalcitonin 0.075 02/04/22 21:25: NT-Pro-B Natriuret Pep 267 H 02/04/22 22:40: Urine Color Yellow, Urine Appearance Clear, Urine pH 7.0, Ur Specific [place] <= 1.005, Urine Protein Negative, Urine Glucose (UA) Negative, Urine Ketones Negative, Urine Blood Negative, Urine Nitrate Negative, Urine Bilirubin Negative, Urine Urobilinogen 0.2, Ur Leukocyte Esterase Trace, Urine WBC 5-10, Ur Squamous Epith Cells 3-5, Urine Bacteria 1+ Result diagrams: 02/04/22 21:25 02/04/22 21:25 Orders (Tests/Meds): ED MEDICATIONS Generic Name Dose Route Start Last Admin Trade Name Freq PRN Reason Stop Dose Admin Sodium Chloride 1,000 mls @ 999 mls/hr 02/04/22 21:45 02/04/22 22:01 Sod Chlor 0.9% 1000ml Bag IV 02/04/22 22:45 999 mls/hr .Q1H1M NEYMAR Administration Discontinued Medications Generic Name Dose Route Start Last Admin Trade Name Freq PRN Reason Stop Dose Admin Ketorolac Tromethamine 30 mg 02/04/22 21:37 02/04/22 22:01 Ketorolac 30mg/Ml Vial IV 02/04/22 21:38 30 mg ONCE ONE Administration Ondansetron HCl 4 mg 02/04/22 21:37 02/04/22 22:01 Ondansetron 4mg/2ml Vial IV 02/04/22 21:38 4 mg ONCE ONE Administration ORDERS Category Date Time Status Troponin I Q3H Lab 02/05/22 00:45 Ordered Troponin I Q3H Lab 02/05/22 03:45 Ordered - Radiology Data #1 Image(s): Chest, Pelvis Image Reviewed: Yes I discussed the image results w/the radiologist Preliminary Findings: Normal/NAD - CT Data CT Scan: Head, C-Spine Time Received: 00:[address] Reviewed: Yes: I have viewed the radiologist's interpretation Preliminary Findings: No Fracture Seen - ECG Data Tracing #1 Normal Sinus Rhythm: Yes Ischemic changes: no
[2022-02-04 22:10] VITALS: BP 186/96; PULSE 56; O2SAT 97
[2022-02-04 22:10] LABS: Procalcitonin 0.075 ng/mL (0.0-2.0)
[2022-02-04 22:11] LABS: Erythrocyte Sedimentation Rate 33 mm/hr (0-20); Troponin I < 0.01 ng/ml (0.00-0.034)
[2022-02-04 22:13] LABS: NT Pro Brain Natriuretic Pep. 267 pg/mL (0-125)
--- NOTE | 2022-02-04 22:13 | PC.NURSE ---
Dr. Penny s/w SHOLAAD
[2022-02-04 22:31] VITALS: BP 175/86; PULSE 53; O2SAT 99
[2022-02-04 22:46] LABS: Microscopic, Urine URINE MICROSCOPIC (MICROSCOPIC)
[2022-02-04 22:53] LABS: Appearance,Urine CLEAR (Clear); Bilirubin,Urine Negative (Negative); Blood, Urine Negative (Negative); Color,Urine YELLOW (Yellow); Glucose,Urine (UA) Negative (Negative); Ketones,Urine Negative (Negative); Leukocyte Esterase,Urine TRACE (Negative); Nitrate,Urine Negative (Negative); Protein,Urine Negative (Negative); Specific Gravity, Urine <= 1.005 (1.005-1.030); Urobilinogen,Urine 0.2 EU/dl (0.2)
[2022-02-04 23:00] VITALS: BP 171/83; PULSE 56; O2SAT 95
[2022-02-04 23:09] LABS: Bacteria,Urine 1+ /lpf
[2022-02-04 23:30] VITALS: BP 177/89; PULSE 55; O2SAT 96
[2022-02-05] VITALS (19 sets, daily range): BP systolic 116–190; BP diastolic 68–107; PULSE 45–65; RESP 16–18; TEMP 36.8; O2SAT 94–97; BMI 32.8
[2022-02-05 01:01] LABS: Coronavirus 19, PCR Not Detected (NotDetected); Influenza A, PCR Not Detected (NotDetected); Influenza B, PCR Not Detected (NotDetected)
--- NOTE | 2022-02-05 01:45 | PC.NURSE ---
2nd floor staff here to complete admission questionnaire.
[2022-02-05 02:08] LABS: Troponin I < 0.01 ng/ml (0.00-0.034)
--- NOTE | 2022-02-05 04:15 | PC.NURSE ---
3rd troponin delayed d/t difficultly obtaining. 2nd nurse will attempt.
--- NOTE | 2022-02-05 04:47 | PC.NURSE ---
AM labs drawn. Patient states that his headache is much better.
[2022-02-05 04:53] LABS: Basophils # 0.1 K/mm3 (0-0.2); Basophils % 1.1 % (0.1-2.0); Eosinophils # 0.7 K/mm3 (0.0-0.4); Eosinophils % 6.3 % (0.1-12.0); Hemoglobin 12.1 g/dL (14.1-18.0); Lymphocytes # 1.8 K/mm3 (0.7-4.5); Lymphocytes % 16.6 % (10-50); Mean Corpuscular HGB Conc 31.9 g/dL (31.8-35.4); Mean Corpuscular Hemoglobin 31.1 pg (27.0-31.2); Mean Corpuscular Volume 97.3 fl (80-94); Mean Platelet Volume 8.8 fl (7.4-10.4); Monocytes # 0.6 K/mm3 (0.1-1.0); Neutrophils # 7.7 K/mm3 (1.8-7.8); Platelet Count 210 K/mm3 (142-424); Red Blood Count 3.91 M/mm3 (4.60-6.20); Red Cell Distribution Width 15.3 % (11.5-17.5); White Blood Count 10.8 K/mm3 (4.8-10.8)
[2022-02-05 04:55] LABS: Chloride 107 mmol/L (98-107)
[2022-02-05 04:56] LABS: Potassium 4.7 mmoL/L (3.5-5.1); Sodium 137 mmol/L (136-145)
[2022-02-05 04:59] LABS: Anion Gap 9.7 mEq/L (5-15); Blood Urea Nitrogen 19 mg/dl (9-20); Calcium 8.2 mg/dl (8.4-10.2); Carbon Dioxide 25 mmol/L (22.0-30.0); Creatinine Clearance Estimated 82 mL/min (50-200); Estimated Glomerular Filt Rate 55 ml/min (>60); GFR (African American) 67 ML/MIN (>60); Glucose 101 mg/dl (74-100); Magnesium 1.8 mg/dl (1.6-2.3)
[2022-02-05 05:13] LABS: Troponin I 0.01 ng/ml (0.00-0.034)
[2022-02-05 07:07] LABS: POC Glucose,Bedside 113 (70-110)
--- NOTE | 2022-02-05 07:29 | P.CONPHA_ITS ---
[facility] Pharmacy VTE Monitoring - Patient Demographics Admission date: 02/05/22 Report Date: 02/05/22 Time: 07:29 Allergies/Adverse Reactions: Patient Allergies No Known Allergies Allergy (Verified 10/22/21 14:35) Height: 1.78 m Weight: 103.929 kg Patient Problems: Current Active Problems Vertigo (Acute) Hypertensive urgency (Acute) - VTE Risk Labs: VTE Related Lab Results Hgb 12.1 g/dL (14.1-18.0) L 02/05/22 04:45 Hct 38.0 % (42.0-52.0) L 02/05/22 04:45 Plt Count 210 K/mm3 (142-424) 02/05/22 04:45 BUN 19 mg/dl (9-20) 02/05/22 04:45 Creatinine 1.30 mg/dl (0.66-1.25) H 02/05/22 04:45 Estimated Creat Clear 82 mL/min (50-200) 02/05/22 04:45 Was VTE Risk Assessment Performed: Yes VTE Score: 6 VTE Risk Level: Moderate Risk Clinical Trial Participant: No - Prophylaxis VTE Prophylaxis Ordered?: Yes Types of VTE Prophylaxis: TEDS Knee High
--- NOTE | 2022-02-05 07:51 | PC.NURSE ---
PT in room
--- NOTE | 2022-02-05 08:00 | PC.NURSE ---
Dr. Blake at BS
--- NOTE | 2022-02-05 08:04 | PC.NURSE ---
pt finished breakfast tray at this time, pt helped to reposition in bed, call light within reach. Will continue to monitor
--- NOTE | 2022-02-05 08:06 | CA_ITS ---
FINAL REPORT TECHNIQUE: Color Doppler, duplex Doppler and daniels scale sonography of the bilateral neck arterial vasculature was performed. Velocities were measured in the carotid arteries. Stenosis evaluation based on the validated velocity criteria. CLINICAL HISTORY: BRUIE,DIZZINESS,HTN,HLD,SMOKER,DM FINDINGS: The peak systolic velocity of the right common carotid artery is 197 cm/s. The peak systolic velocity of the right internal carotid artery is 71 cm/s and end diastolic velocity 21 cm/s. The ICA/CCA ratio is 0.83. A small amount of plaque is present. The right external carotid artery is patent. The right vertebral artery is patent with antegrade flow. The peak systolic velocity of the left common carotid artery is 84 cm/s. The peak systolic velocity of the left internal carotid artery is 71 cm/s and end diastolic velocity 7 cm/s. The ICA/CCA ratio is 1.32. A small amount of plaque is present. The left external carotid artery is patent.The left vertebral artery is patent with antegrade flow. IMPRESSION: Less than 50% bilateral carotid stenosis. Bilateral patent vertebral arteries with antegrade flow. Reviewed, Interpreted and Dictated by Shai Rosario III, MD Transcribed by Sharon Mathews Authenticated by Shai Rosario III, MD on 02/05/2022 10:07:02 AM [facility]
--- NOTE | 2022-02-05 08:08 | PC.NURSE ---
Vascular aware of carotid US
--- NOTE | 2022-02-05 08:37 | PC.NURSE ---
Updated Hayden about doppler results
--- NOTE | 2022-02-05 09:07 | HMH.HPDC ---
General - General Admission date:: 02/05/22 Discharge date: 02/05/22 *Admission Date: 02/05/22 *Chief complaint: dizzy *History of present illness: Mr. Lopes is a 66-year-old male with history of hypertension who presented to the ER last night after standing at home and having an episode of dizziness. Per his report he was sitting in his recliner, he went to get up about 45 minutes prior to going to the ER. When he tried to stand, he felt extremely dizzy, lightheaded, unable to get up. Had headache and some mild nausea. No neftali emesis or syncope. Denies any chest pain, palpitations, confusion. On arrival to the ER, noted to have significant hypertension. Admitted for hypotension, and dizziness. Work-up in the ER consisted of a dose of clonidine, CT head, EKG. No findings of stroke. EKG normal. Overnight, blood pressure improved with resolution of his symptoms. Seen this morning on rounds in the ER. Patient stable with normal blood pressure. Bradycardic but this is baseline for him. Denies any further dizziness, chest pain, headache. [facility] History I have reviewed the patient's past medical history: Yes Medical History: Reports:: Congestive Heart Failure, Diabetes Mellitus Type 2, Gastroesophageal Reflux Disease(GERD), Hyperlipidemia, Hypertension, Kidney Stones, MRSA Denies:: Cancer, Diabetes Mellitus Type 1, Internal Pacemaker, Seizures *Have you ever received a pneumonia vaccine?: Yes *Have you received a flu vaccine this season?: Yes Other Medical History: Reports: Arthritis, Other. Denies: Blood Transfusion Reaction Laterality Cases: Bilateral: Other Other Surgeries: Yes: Appendectomy, Cardiac Catheterization, Cholecystectomy, Other (TURP, elbow). No: Pacemaker Amputation: No Fractures: Yes (back) - *Social History Smoking Status: Current every day smoker Tobacco Type: cigarettes # Packs/Day (cigarettes): 2 #Yrs smoked (if former smoker): 30 Alcohol Intake: never Alcohol Intake Frequency:: other Substance Use Type: denies use *Occupational Status:: retired Housing: house Household Members: other *Travel in the last 8 weeks: None Family Hx:: Stroke Review of Systems - Review of Systems Review of systems:: pertinent systems reviewed and negative unless documented below (14 point review of systems performed, pertinent positives and negatives as per HPI) - *Neurologic Reports dizziness, Reports headache(s), Denies abnormal speech, Denies confusion, Denies seizure-like activity Exam Vital signs and Labs for Last 24 Hours: Temp Pulse Resp BP Pulse Ox 98.3 F 47 L 20 135/72 95 02/04/22 21:28 02/05/22 04:45 02/04/22 21:28 02/05/22 04:30 02/05/22 04:45 Laboratory Results - last 24 hr 02/04/22 21:25: WBC 10.1, RBC 4.05 L, Hgb 12.7 L, Hct 39.3 L, MCV 97.1 H, MCH 31.3 H, MCHC 32.2, RDW 15.1, Plt Count 232, MPV 8.9, Neut % (Auto) 67.1, Lymph % (Auto) 20.9, [place] % (Auto) 5.6, Eos % (Auto) 5.4, Baso % (Auto) 0.9, Neut # (Auto) 6.8, Lymph # (Auto) 2.1, [place] # (Auto) 0.6, Eos # (Auto) 0.6 H, Baso # (Auto) 0.1, ESR 33 H 02/04/22 21:25: Sodium 138, Potassium 4.2, Chloride 106, Carbon Dioxide 27, Anion Gap 9.2, BUN 19, Creatinine 1.40 H, Estimated Creat Clear 78, Estimated GFR 51 L, Est GFR ( Amer) 61, Glucose 121 H, Calcium 9.1, Total Bilirubin 0.7, AST 33, ALT 36, Alkaline Phosphatase 95, Troponin I < 0.01, C-Reactive Protein 1.1, Total Protein 7.3, Albumin 4.4, Globulin 2.9, Albumin/Globulin Ratio 1.5, Amylase 103, Lipase 117, Procalcitonin 0.075 02/04/22 21:25: NT-Pro-B Natriuret Pep 267 H 02/04/22 22:40: Urine Color Yellow, Urine Appearance Clear, Urine pH 7.0, Ur Specific [place] <= 1.005, Urine Protein Negative, Urine Glucose (UA) Negative, Urine Ketones Negative, Urine Blood Negative, Urine Nitrate Negative, Urine Bilirubin Negative, Urine Urobilinogen 0.2, Ur Leukocyte Esterase Trace, Urine WBC 5-10, Ur Squamous Epith Cells 3-5, Urine Bacteria 1+ 02/05/22 00:53: SARS-CoV-2 (PCR) Not detected, Influenza
--- NOTE | 2022-02-05 09:16 | PC.NURSE ---
Updated pt and family on plan of care
--- NOTE | 2022-02-05 10:58 | PC.NURSE ---
made a follow up appt for pt per Dr. Blake's request: at 2:[address] Barton
== END 2022-02-05 12:47 | disposition home or self-care (01) ==
LOC: ER 21:29 → 2ND 02-05 00:38
PROVIDERS: Admitting Provider Internal Medicine Adolescent Medicine; Emergency Provider Emergency Medicine; PCP Internal Medicine Adolescent Medicine; Visit Provider Internal Medicine Adolescent Medicine
DX: I16.1 Hypertensive emergency (principal); Z79.899 Other long term (current) drug therapy; E11.9 Type 2 diabetes mellitus without complications; I11.0 Hypertensive heart disease with heart failure; I50.9 Heart failure, unspecified; K21.9 Gastro-esophageal reflux disease without esophagitis; F17.210 Nicotine dependence, cigarettes, uncomplicated; R00.1 Bradycardia, unspecified; R06.09 Other forms of dyspnea; Z20.822 Contact with and (suspected) exposure to COVID-19; R42 Dizziness and giddiness
CPT/HCPCS: G0378; 70450; 71045; 72125; 72170; 80048; 80053; 81001; 82150; 82962; 83690; 83735; 83880; 84145; 84484; 85025; 85651; 86140; 93005; 93880; 96365; 99285; C9803; J2405; U0003; U0005

== ENCOUNTER → 2022-02-14 08:11 | Outpatient (POV) | payer MEDICARE, OTHER, SELFPAY ==
[2022-02-14 08:29] VITALS: BP 108/63; PULSE 64; RESP 20; TEMP 36.1; O2SAT 99; BMI 33.7
--- NOTE | 2022-02-14 08:58 | HMH.PAINSOAP ---
[facility] Pain Management SOAP Note Subjective:: Patient is a pleasant 66 year old male with a medical hx of ankylosing spondylitis, diagnosed in , presents today for follow up. Patient does follow rheumatology and is taking humira and prednisone. For pain, patient is currently being managed with Tramadol 50mg 6-8 times a day, Baclofen, Diclofenac gel that are prescribed by Dr. Martin, patient's PCP. Patient describes his pain as originating from his low back and radiating to bilateral lower extremities and neck pain radiating to bilateral upper extremities. Dr. Rodrigues saw this patient last time and ordered a Lumbar MRI which shows multiple levels of degenerative disc changes, spondylosis, and disc herniation. Today, patient is still complaining of neck and low back pain. Last Friday, he strained his neck and low back causing him to fall when he was bending down to reach something. They gave his steroids and toradol shot when he was in the ER which helped some of the pain. Denies any loss of bowel and bladder functions. Rates pain today as 8/10. ORT Score is low risk. [facility] #[id number] with an active morphine equivalent of 40. General: No recent weight changes, no fever, no sleep disturbances Respiratory: No cough, no shortness of air, no recurring pulmonary infections Cardiovascular/peripheral vascular: No chest pain, no palpitations, no edema, no shortness of breath Gastrointestinal: No new onset incontinence, normal bowel movements reported Genitourinary: No new onset incontinence Musculoskeletal: Neck pain, low back pain Psychiatric: [Normal mood/affect] Neurological: [Denies weakness in extremities], [denies balance issues] Objective:: General: Alert and oriented x3, no acute distress, pleasant and cooperative, [on room air] Lungs: Respirations even and unlabored, symmetrical chest expansion Eyes: PERRL Musculoskeletal: Flexion and extension of apical and lumbar [spine] somewhat guarded secondary to pain, normal gait, range of motion of the neck secondary to pain Neurological: Speech clear, no gross sensory deficit Assessment:: Degenerative disc disease of the lower cervical and lumbar spine with cervical lumbar radiculopathy symptoms Lumbar facet arthropathy Ankylosing spondylitis Plan:: IMAGING Cervical CT FINDINGS: Bones/joints: Diffuse fusion of the vertebral bodies. The vertebral bodies are normal height and alignment. There is no anterior or retrolisthesis. There is no fracture present. The atlanto dens interval is intact. There is no dens fracture. Discs/Spinal canal/Neural foramina: There is no evidence for ligamentous injury. Prevertebral Space: There is no abnormality of the prevertebral soft tissues. Lungs: Lung apices are normal. Soft tissues: Unremarkable. IMPRESSION: 1. No evidence for significant traumatic injury to the cervical spine. 2. Ankylosing spondylitis. Lumbar MRI FINDINGS: Multiplanar MR imaging of the lumbar spine was performed without contrast. On the sagittal T2-weighted images, disc degeneration is seen at several levels. The vertebral alignment is normal. There are endplate changes at L2-3. There is mild L3 superior endplate compression fracture which appears chronic. The conus has an unremarkable appearance. T12-L1: An annular bulge is present. There is no significant canal stenosis or neural foraminal narrowing. L1-2: An annular bulge is present. There is no significant canal stenosis or neural foraminal narrowing. L2-3: An annular bulge is present. Facet arthropathy and osteophytes are present. There is mild left neural foraminal narrowing. L3-4: An annular bulge and facet arthropathy are present. There is mild left neural foraminal narrowing. L4-5: An annular bulge and facet arthropathy are present. There is mild left neural foraminal narrowing. L5-S1: An annular bulge is present. Facet arthropathy and osteophytes are
== END ==
PROVIDERS: Visit Provider Student in an Organized Health Care Education/Training Program
DX: M50.10 Cervical disc disorder with radiculopathy, unspecified cervical region (principal); M51.16 Intervertebral disc disorders with radiculopathy, lumbar region; M54.06 Panniculitis affecting regions of neck and back, lumbar region; M45.9 Ankylosing spondylitis of unspecified sites in spine
CPT/HCPCS: 99212; G0463

== ENCOUNTER 2022-02-22 12:03 | Day surgery (SDC) | payer MEDICARE, OTHER, SELFPAY ==
[2022-02-22 12:26] VITALS: BP 161/74; BP 165/75; PULSE 48; RESP 20; TEMP 36.4; O2SAT 97; O2SAT 98; BMI 34.1
[2022-02-22 13:15] VITALS: BP 143/71; BP 179/81; PULSE 51; PULSE 55; RESP 20
--- NOTE | 2022-02-22 14:04 | HMH.PMPROC ---
- Procedure Date: 02/22/22 Time: 14:05 Anesthesiologist:: Silverio Charles MD Complications:: None Pre-procedure Diagnosis:: Degenerative disc disease of lumbar spine with lumbar radiculopathy symptoms Post-procedure Diagnosis:: Same Indications for Procedure:: The patient is a pleasant 66-year-old white male who we are treating for low back pain with lumbar radiculopathy symptoms. MRI does show multilevel degenerative disc disease with bulging disc spondylosis and disc herniation. He has increasing low back pain radiating down both legs. We will plan on lumbar pleural steroid injection today to see if this helps with his pain symptoms. Procedure Details:: Informed consent was obtained and the risk and benefits of the procedure was explained to the patient. The patient was taken to the procedure room. The patient was placed prone on the procedure table. The patient was prepped and draped in sterile fashion. C-arm fluoroscopy was used to view the lumbar spine. Skin and subcutaneous tissues were anesthetized using lidocaine. I placed an 18-gauge epidural needle and advanced into the L4-L5 interspace using fluoroscopic guidance and [id number] to air. After confirmation of needle placement in the epidural space with dye I injected 2 mL of lidocaine 1.5% with Depo-Medrol 80 mg. Patient tolerated the procedure well with no complications. Plan and Disposition:: We will follow-up with him in 2 weeks. Will reevaluate his symptoms at that time.
== END 2022-02-22 13:29 | disposition home or self-care (01) ==
LOC: SC.PAINP 12:04
PROVIDERS: PCP Internal Medicine Adolescent Medicine; Visit Provider Anesthesiology
DX: M51.16 Intervertebral disc disorders with radiculopathy, lumbar region (principal); M54.06 Panniculitis affecting regions of neck and back, lumbar region; M47.816 Spondylosis without myelopathy or radiculopathy, lumbar region; E11.9 Type 2 diabetes mellitus without complications; K21.9 Gastro-esophageal reflux disease without esophagitis; E78.5 Hyperlipidemia, unspecified; I11.0 Hypertensive heart disease with heart failure; I50.9 Heart failure, unspecified; M19.90 Unspecified osteoarthritis, unspecified site; Z86.14 Personal history of Methicillin resistant Staphylococcus aureus infection; Z90.49 Acquired absence of other specified parts of digestive tract
CPT/HCPCS: 62323; J1040; Q9966

== ENCOUNTER → 2022-03-21 13:01 | Outpatient (POV) | payer MEDICARE, OTHER, SELFPAY ==
[2022-03-21 13:26] VITALS: BP 162/62; PULSE 58; RESP 18; TEMP 36.5; O2SAT 97; BMI 32.8
--- NOTE | 2022-03-21 16:00 | HMH.PAINSOAP ---
[facility] Pain Management SOAP Note Subjective:: Patient is a pleasant 66-year-old male with a medical history of ankylosing spondylitis, diagnosed in 09/2012, presents today for follow-up. Patient does follow with rheumatology and is taking Humira and prednisone. He recently had a lumbar epidural steroid injection on February 22, 2022. Patient states that he had significant relief of about 80 to 90% after this procedure and rates his pain as 1 out of 10. Denies any side effects from procedure. He is also prescribed tramadol 50 mg 6-8 times a day, baclofen, diclofenac gel that are prescribed by Dr. Martin, patient's PCP. Today, patient is complaining of bilateral knee pain. He was told that he is not a good knee replacement candidate because of his medical history. We have tried cortisone injections in the past that only provided 1 day of relief. Patient wants to know if there is something else we can do for him in regards to this. Additionally, patient did have a recent fall and strained his neck. He also says that his neck and mid back are completely fused because of the ankylosing spondylitis. He says that he continues to have achy pain in his neck and mid back. I did discuss with him last time that he would be a good intrathecal pain pump candidate. I provided him with information in regards to this last time. [facility] #[id number] with an active morphine equivalent of 40. Review of Systems: General: No recent weight changes, no fever, no sleep disturbances Respiratory: No cough, no shortness of air, no recurring pulmonary infections Cardiovascular/peripheral vascular: No chest pain, no palpitations, no edema, no shortness of breath Gastrointestinal: No new onset incontinence, normal bowel movements reported Genitourinary: No new onset incontinence Musculoskeletal: Neck pain, mid back pain, low back pain, bilateral knee pain Psychiatric: [Normal mood/affect] Neurological: [Denies weakness in extremities], [denies balance issues] Objective:: Physical Exam: General: Alert and oriented x3, no acute distress, pleasant and cooperative, [on room air] Lungs: Respirations even and unlabored, symmetrical chest expansion Eyes: PERRL Musculoskeletal: Flexion and extension of [cervical, thoracic, lumbar] [spine] somewhat guarded secondary to pain, [antalgic gait noted] Limited range of motion of bilateral knees secondary to pain; Neurological: Speech clear, no gross sensory deficit Assessment:: Ankylosing spondylitis Degenerative disc disease of cervical and lumbar spine with cervical and lumbar radiculopathy symptoms Lumbar facet arthropathy Plan:: Patient continues to have significant relief after the lumbar epidural steroid injection. He is complaining of bilateral knee pain today. He had cortisone shots in the past that lasted for a day of relief. We will schedule the patient for bilateral genicular nerve block. Risks and benefits of the procedure have been explained to the patient. Patient would like to proceed with the procedure. In regards to intrathecal pain pump therapy, patient is interested in moving forward with this procedure. We will refer the patient for a psychiatric evaluation. Patient has been instructed to contact the clinic with any concerns before the next appointment. Dr. Charles has reviewed this note and agrees with this plan of care. This note was dictated using voice recognition software and make contain errors or omissions. [facility] History Medical History: Reports:: Congestive Heart Failure, Diabetes Mellitus Type 2, Gastroesophageal Reflux Disease(GERD), Hyperlipidemia, Hypertension, Kidney Stones Denies:: Cancer, Diabetes Mellitus Type 1, Internal Pacemaker, MRSA, Seizures *Have you ever received a pneumonia vaccine?: Yes *Have you received a flu vaccine this season?: Yes Other Medical History: Reports: Arthritis, Other. Denies: Blood Transfusion Reaction Laterality Cases: Bilateral: Other Other Surgeries: Yes
== END ==
PROVIDERS: Visit Provider Student in an Organized Health Care Education/Training Program
DX: M45.9 Ankylosing spondylitis of unspecified sites in spine (principal); M50.10 Cervical disc disorder with radiculopathy, unspecified cervical region; M54.06 Panniculitis affecting regions of neck and back, lumbar region
CPT/HCPCS: 99212; G0463

== ENCOUNTER 2022-04-05 08:44 | Day surgery (SDC) | payer MEDICARE, OTHER, SELFPAY ==
[2022-04-05 08:53] VITALS: BP 125/62; PULSE 48; RESP 20; TEMP 35.4; O2SAT 98; BMI 33.3
[2022-04-05 09:14] VITALS: BP 118/41; PULSE 48; RESP 18; O2SAT 98
[2022-04-05 09:15] VITALS: BP 134/69; PULSE 46; RESP 18; O2SAT 98
--- NOTE | 2022-04-05 09:20 | HMH.PMPROC ---
- Procedure Date: 04/05/22 Time: 09:20 Anesthesiologist:: Ricci Hurt CRNA Complications:: None Pre-procedure Diagnosis:: Osteoarthritis left knee. Post-procedure Diagnosis:: Osteoarthritis left knee. Indications for Procedure:: This patient is a pleasant 66-year-old male that has been seen in our clinic for chronic bilateral knee pain. He has had intra-articular cortisone in the past with minimal relief. He has a medical history of ankylosing spondylitis. He presents today for left knee genicular nerve block. Procedure Details:: Details of the procedure were explained to the patient. The patient taken the procedure room placed in the supine position. The knee was placed at a 45 degree angle. The knee was prepped using chlorhexidine as a cleansing solution. Under fluoroscopy guidance using a 22-gauge 3-1/2 inch needle the lateral and medial superior genicular nerve was accessed and injected with 3 cc of 1% lidocaine 1 cc of 0.25% Marcaine and 20 mg of Depo-Medrol. The same solution was injected at the medial inferior genicular nerve. Patient tolerated procedure without difficulty. There were no complications. Plan and Disposition:: Patient exited the procedure room with minimal pain in the left knee. Was discharged without incident.
[2022-04-05 09:25] VITALS: BP 101/64; PULSE 45; RESP 20; O2SAT 96
== END 2022-04-05 09:25 | disposition home or self-care (01) ==
LOC: SC.PAINP 08:46
PROVIDERS: PCP Internal Medicine Adolescent Medicine; Visit Provider Nurse Anesthetist, Certified Registered
DX: M17.12 Unilateral primary osteoarthritis, left knee; E11.9 Type 2 diabetes mellitus without complications; K21.9 Gastro-esophageal reflux disease without esophagitis; E78.5 Hyperlipidemia, unspecified; I10 Essential (primary) hypertension; I50.9 Heart failure, unspecified; M19.90 Unspecified osteoarthritis, unspecified site; Z90.49 Acquired absence of other specified parts of digestive tract; Z72.0 Tobacco use
CPT/HCPCS: 20610; 77002; J1030

== ENCOUNTER → 2022-04-16 11:13 | Outpatient (POV) | payer MEDICARE, OTHER, SELFPAY ==
[2022-04-16 11:44] VITALS: BP 152/74; PULSE 61; RESP 18; TEMP 36.3; O2SAT 99; BMI 32.3
--- NOTE | 2022-04-16 11:54 | HMH.PAINSOAP ---
[facility] Pain Management SOAP Note Subjective:: Patient is a pleasant 66-year-old male who returns our clinic today following up from a left genicular nerve block. He reports 50 to 60% improvement terms of left knee pain. He states he is ambulating much better. However, his right knee pain is extremely painful. He is requesting a right genicular nerve block. I discussed in detail with him the injection, risk, benefits. He wishes to proceed. He rates his pain in the right knee 8/10. He describes it as constant, dull, aching. Pain increases significantly when climbing stairs or simply ambulating any distance. Objective:: Patient is awake alert Kent x3. No acute distress. Flexion-extension lumbar spine normal. Motor strength upper and lower extremities normal. There is no gross sensory deficit. Gait is antalgic. Patient requires a cane for ambulation. Assessment:: Osteoarthritis bilateral knees. Plan:: Discussed in detail with the patient regarding a right genicular nerve block. He wishes to proceed. We did discuss risk and benefits. [facility] History Medical History: Reports:: Congestive Heart Failure, Diabetes Mellitus Type 2, Gastroesophageal Reflux Disease(GERD), Hyperlipidemia, Hypertension, Kidney Stones Denies:: Cancer, Diabetes Mellitus Type 1, Internal Pacemaker, MRSA, Seizures *Have you ever received a pneumonia vaccine?: Yes *Have you received a flu vaccine this season?: Yes Other Medical History: Reports: Arthritis, Other. Denies: Blood Transfusion Reaction Laterality Cases: Bilateral: Other Other Surgeries: Yes: Appendectomy, Cardiac Catheterization, Cholecystectomy, Other (TURP, elbow). No: Pacemaker Amputation: No Fractures: Yes (back) - *Social History Smoking Status: Current every day smoker Tobacco Type: cigarettes # Packs/Day (cigarettes): 1 #Yrs smoked (if former smoker): 30 Alcohol Intake: never Alcohol Intake Frequency:: other Substance Use Type: denies use *Occupational Status:: retired Housing: house Household Members: other *Travel in the last 8 weeks: None Family Hx:: No significant family history
== END ==
PROVIDERS: Visit Provider Nurse Anesthetist, Certified Registered
DX: M17.0 Bilateral primary osteoarthritis of knee (principal)
CPT/HCPCS: 99212; G0463

== ENCOUNTER 2022-04-26 14:02 | Day surgery (SDC) | payer MEDICARE, OTHER, SELFPAY ==
[2022-04-26 14:28] VITALS: BP 177/89; BP 199/99; PULSE 57; PULSE 59; RESP 20; TEMP 36.3; O2SAT 98; BMI 33.3
[2022-04-26 14:35] VITALS: BP 203/80; PULSE 58; RESP 18; O2SAT 97
[2022-04-26 14:37] VITALS: BP 203/85; PULSE 58; RESP 18; O2SAT 97
--- NOTE | 2022-04-26 15:18 | HMH.PMPROC ---
- Procedure Date: 04/26/22 Time: 15:19 Anesthesiologist:: Silverio Charles MD Complications:: None Pre-procedure Diagnosis:: Right knee pain with degenerative osteoarthritis chronic Post-procedure Diagnosis:: Same Indications for Procedure:: Patient is a pleasant 66-year-old white male who we are treating for bilateral knee pain with degenerative osteoarthritis. He is status post left genicular nerve block for his left knee pain. He is doing 80 to 90% better. He presents for right genicular nerve block, superior medial, superior lateral and inferior medial genicular nerve block today to help with his right knee pain. Procedure Details:: Right knee genicular block Informed consent was obtained and the risk and benefits of the procedure was explained to the patient. The patient was taken to the procedure room. The left knee was prepped using ChloraPrep. I placed 22-gauge needles into the area of the right superior medial genicular nerve, right superior lateral genicular nerve and right inferior medial genicular nerve. Needle placement was confirmed in AP and lateral views with dye. We then injected bupivacaine 0.25% 3 mL's and Depo-Medrol 25 mg into each area of the right superior medial genicular nerve, right superior lateral genicular nerve and right inferior medial genicular nerve. Patient tolerated the procedure well with no complications. Plan and Disposition:: We will follow-up with him in 2 weeks. Will reevaluate symptoms at that time. If successful we will plan on RF ablation to the genicular nerves if needed.
== END 2022-04-26 15:01 | disposition home or self-care (01) ==
LOC: SC.PAINP 14:03
PROVIDERS: PCP Internal Medicine Adolescent Medicine; Visit Provider Anesthesiology
DX: M25.561 Pain in right knee (principal); M19.90 Unspecified osteoarthritis, unspecified site
CPT/HCPCS: 64454; J1040; Q9966

== ENCOUNTER → 2022-05-16 14:24 | Outpatient (POV) | payer MEDICARE, OTHER, SELFPAY ==
[2022-05-16 14:34] VITALS: BP 169/86; PULSE 94; RESP 20; O2SAT 94; BMI 33.3
--- NOTE | 2022-05-17 09:02 | HMH.PAINSOAP ---
[facility] Pain Management SOAP Note Subjective:: Patient is a pleasant 66-year-old male who presents today for follow-up after a right genicular nerve block. After this procedure, patient had significant relief of 90 to 100% and rates his knee pain as 0 out of 10. He also previously had a left genicular nerve block that is still doing significantly well. He has been able to increase his activity after these genicular nerve blocks. Were also treating this patient for chronic neck, thoracic, low back pain due to ankylosing spondylitis. Patient had lumbar epidural steroid injection in the past the provided some relief. More recently, we tried another round of LESI with this patient in our clinic that provided minimal relief. I have discussed with the patient in the past that he could be a good candidate for intrathecal pain pump therapy. I have provided the patient information in regards to this system. He is still a bit hesitant to move forward with this system. At this time, he is satisfied that his knees are doing great. For pain, he takes tramadol 50mg 6-8 times per day that is prescribed by Dr. Barton. Constantine [id number]. Review of Systems: General: No recent weight changes, no fever, no sleep disturbances Respiratory: No cough, no shortness of air, no recurring pulmonary infections Cardiovascular/peripheral vascular: No chest pain, no palpitations, no edema, no shortness of breath Gastrointestinal: No new onset incontinence, normal bowel movements reported Genitourinary: No new onset incontinence Musculoskeletal: Neck pain, mid back pain, low back pain, improving knee pain Psychiatric: [Normal mood/affect] Neurological: [Denies weakness in extremities], [denies balance issues] Objective:: Physical Exam: General: Alert and oriented x3, no acute distress, pleasant and cooperative Lungs: Respirations even and unlabored, symmetrical chest expansion Eyes: PERRL Musculoskeletal: Flexion and extension of cervical, thoracic, and lumbar [spine] somewhat guarded secondary to pain, [antalgic gait noted] Neurological: Speech clear, no gross sensory deficit Assessment:: Ankylosing spondylitis, chronic back pain, osteoarthritis of bilateral knees Plan:: Patient continues to have significant relief after bilateral genicular nerve blocks. We will follow this patient in 2 months to reevaluate chronic pain syndrome. In regards to his back pain, I have discussed with the patient that he is a good candidate for intrathecal pain pump therapy. I provide this patient information in regards to the system. He still needs time to think about moving forward with this system. Patient has been instructed to contact the clinic with any concerns before the next appointment. Dr. Charles has reviewed this note and agrees with this plan of care. This note was dictated using voice recognition software and make contain errors or omissions. [facility] History Medical History: Reports:: Congestive Heart Failure, Coronary Artery Disease, Diabetes Mellitus Type 2, Gastroesophageal Reflux Disease(GERD), Hyperlipidemia, Hypertension, Kidney Stones Denies:: Cancer, Diabetes Mellitus Type 1, Internal Pacemaker, MRSA, Seizures *Have you ever received a pneumonia vaccine?: Yes *Have you received a flu vaccine this season?: Yes Other Medical History: Reports: Arthritis, Other. Denies: Blood Transfusion Reaction Laterality Cases: Bilateral: Other Other Surgeries: Yes: Appendectomy, Cardiac Catheterization, Cholecystectomy, Other (TURP, elbow). No: Pacemaker Amputation: No Fractures: Yes (back) - *Social History Smoking Status: Current every day smoker Tobacco Type: cigarettes # Packs/Day (cigarettes): 1 #Yrs smoked (if former smoker): 30 Alcohol Intake: never Alcohol Intake Frequency:: other Substance Use Type: denies use *Occupational Status:: retired Housing: house Household Members: other *Travel in the last 8 weeks: None Family Hx:: No significant family history
== END ==
PROVIDERS: Visit Provider Student in an Organized Health Care Education/Training Program
DX: M45.9 Ankylosing spondylitis of unspecified sites in spine (principal); G89.29 Other chronic pain; M17.0 Bilateral primary osteoarthritis of knee
CPT/HCPCS: 99212; G0463

== ENCOUNTER → 2022-05-22 10:09 | Outpatient (CLI) | payer MEDICARE, OTHER, SELFPAY ==
[2022-05-22 11:07] LABS: Basophils # 0.1 K/mm3 (0-0.2); Basophils % 0.5 % (0.1-2.0); Eosinophils # 0.3 K/mm3 (0.0-0.4); Eosinophils % 2.9 % (0.1-12.0); Hematocrit 42.2 % (42.0-52.0); Hemoglobin 13.5 g/dL (14.1-18.0); Lymphocytes # 0.9 K/mm3 (0.7-4.5); Lymphocytes % 9.5 % (10-50); Mean Corpuscular Hemoglobin 30.2 pg (27.0-31.2); Mean Corpuscular Volume 94.6 fl (80-94); Mean Platelet Volume 8.3 fl (7.4-10.4); Monocytes # 0.4 K/mm3 (0.1-1.0); Monocytes % 4.6 % (1.7-9.3); Neutrophils # 7.8 K/mm3 (1.8-7.8); Neutrophils % 82.5 % (37.0-80.0); Platelet Count 228 K/mm3 (142-424); Red Blood Count 4.46 M/mm3 (4.60-6.20); Red Cell Distribution Width 14.7 % (11.5-17.5); White Blood Count 9.5 K/mm3 (4.8-10.8)
[2022-05-22 11:32] LABS: Chloride 103 mmol/L (98-107); Potassium 5.1 mmoL/L (3.5-5.1); Sodium 139 mmol/L (136-145)
[2022-05-22 11:35] LABS: Alanine Aminotransferase 33 U/L (12-78); Albumin Level 4.4 g/dl (3.5-5.0); Albumin/Globulin Ratio 1.5 (1.1-1.8); Alkaline Phosphatase 122 U/L (38-126); Anion Gap 11.1 mEq/L (5-15); Aspartate Amino Transferase 30 U/L (17-59); Bilirubin,Total 0.6 mg/dl (0.2-1.3); Blood Urea Nitrogen 13 mg/dl (9-20); Carbon Dioxide 30 mmol/L (22.0-30.0); Estimated Glomerular Filt Rate 47 ml/min (>60); GFR (African American) 57 ML/MIN (>60); Globulin 2.9 g/dL (1.3-3.2); Total Protein,Serum 7.3 g/dl (6.3-8.2)
[2022-05-22 11:36] LABS: Calcium 9.9 mg/dl (8.4-10.2); Glucose 100 mg/dl (74-100)
[2022-05-22 11:41] LABS: C-Reactive Protein 1.3 mg/L (0-4)
[2022-05-22 11:44] LABS: Erythrocyte Sedimentation Rate 31 mm/hr (0-20)
[2022-05-25 08:53] LABS: QuantiFERON-TB Gold Plus Negative (Negative)
[2022-05-30 15:14] LABS: Hep A Ab, IgM Negative; Hepatitis B Core Antibody IgM Negative; Hepatitis B Surface Antigen Negative; Hepatitis C Antibody <0.1
== END ==
PROVIDERS: PCP Internal Medicine Adolescent Medicine; Visit Provider Nurse Practitioner Family
DX: D89.9 Disorder involving the immune mechanism, unspecified (principal); R53.83 Other fatigue; M45.9 Ankylosing spondylitis of unspecified sites in spine; Z79.1 Long term (current) use of non-steroidal anti-inflammatories (NSAID)
CPT/HCPCS: 36415; 80053; 80074; 85025; 85651; 86140; 86480

== ENCOUNTER → 2022-07-11 08:19 | Outpatient (POV) | payer MEDICARE, OTHER, SELFPAY ==
[2022-07-11 08:52] VITALS: BP 105/67; PULSE 74; RESP 20; BMI 33.3
--- NOTE | 2022-07-11 09:13 | HMH.PAINSOAP ---
[facility] Pain Management SOAP Note Subjective:: Patient is a pleasant 66-year-old male who presents today for follow-up. Patient is currently being treated for chronic neck, mid back and low back pain due to ankylosing spondylitis. Patient is currently being managed with tramadol 50 mg 6-[address] Barton for several years now. We also have tried LESI with this patient but it provided minimal relief. Patient have also tried other conservative therapies such as PT and home exercises in the past but it aggravated his symptoms. I have discussed with the patient in the past that he is a good candidate for intrathecal pain pump. At that time, patient was hesitant to move forward with this procedure. Today, patient states that he wants to give the intrathecal pain pump a try. Patient already had a psychiatric evaluation on 05/14/22 that deemed him appropriate and competent to have the intrathecal pain pump. He rates his pain today as 4/10. Patient also has chronic bilateral knee pain. We have been managing this patient with injective therapy. Patient has had 2 successful bilateral genicular nerve blocks. He has had 90 to 100% relief from these nerve blocks. He does feel like the injections are starting to wear off. Constantine [id number], MEQ 0. Review of Systems: General: No recent weight changes, no fever, no sleep disturbances Respiratory: No cough, no shortness of air, no recurring pulmonary infections Cardiovascular/peripheral vascular: No chest pain, no palpitations, no edema, no shortness of breath Gastrointestinal: No new onset incontinence, normal bowel movements reported Genitourinary: No new onset incontinence Musculoskeletal: Neck pain, mid back pain, low back pain, bilateral knee pain Psychiatric: [Normal mood/affect] Neurological: [Denies weakness in extremities], [denies balance issues] Objective:: Physical Exam: General: Alert and oriented x3, no acute distress, pleasant and cooperative Lungs: Respirations even and unlabored, symmetrical chest expansion Eyes: PERRL Musculoskeletal: Flexion and extension of cervical, thoracic, lumbar [spine] somewhat guarded secondary to pain, [antalgic gait noted]; limited range of motion of bilateral knees secondary to pain Neurological: Speech clear, no gross sensory deficit Assessment:: Ankylosing spondylitis, chronic back pain, osteoarthritis of bilateral knees Plan:: Patient has been dealing with ankylosing spondylitis for a long time. 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 I do think the patient is a good candidate for intrathecal pain pump therapy. We will seek approval for intrathecal pain pump trial and permanent placement. I have discussed with the patient that he will need to wean himself off of his tramadol prior to his intrathecal pain pump trial. He needs to be off of his tramadol for at least 2 days before the trial. If the patient is unable to come off of his tramadol, we will do a pump trial with bupivacaine. Patient is not on any blood thinners. Patient has been instructed to contact the clinic with any concerns before the next appointment. Dr. Charles has reviewed this note and agrees with this plan of care. This note was dictated using voice recognition software and make contain errors or omissions. [facility] History Medical History: Reports:: Congestive Heart Failure, Coronary Artery Disease, Diabetes Mellitus Type 2, Gastroesophageal Reflux Disease(GERD), Hyperlipidemia, Hypertension, Kidney Stones Denies:: Cancer, Diabetes Mellitus Type 1, Internal Pacemaker, MRSA, Seizures *Have you ever received a pneumonia vaccine?: Yes *Have you received a flu vaccine this season?: Yes Other Medical History: Reports: Arthritis, Other. Denies: Blood Transfusion Reaction Laterality Cases: Bilateral: Other Other Surgeries: Yes: Appendectomy, Cardiac Catheterization, Cholecystectomy, Other (TURP, elbow). No: Pacemaker Amputati
== END ==
PROVIDERS: PCP Internal Medicine Adolescent Medicine; Visit Provider Student in an Organized Health Care Education/Training Program
DX: M45.9 Ankylosing spondylitis of unspecified sites in spine (principal); M17.0 Bilateral primary osteoarthritis of knee; G89.29 Other chronic pain
CPT/HCPCS: 99212; G0463

== ENCOUNTER 2022-08-02 07:35 | Day surgery (SDC) | payer MEDICARE, OTHER, SELFPAY ==
[2022-08-02] VITALS (8 sets, daily range): BP systolic 160–201; BP diastolic 80–98; PULSE 62–80; RESP 16–20; TEMP 36.7; O2SAT 96–100; BMI 33.0
--- NOTE | 2022-08-02 09:19 | PC.NURSE ---
Pt. reports post procedure pain relief 01/31; does currently report mild itching in ble; administered benadryl per mar. Pt. reports no further needs and is resting at this time. at bedside, vss.
--- NOTE | 2022-08-02 09:26 | EXP.PAIN.PRO ---
Procedure Date: 08/02/22 Time: 10:38 Anesthesiologist:: Silverio Charles MD Complications:: None Pre-procedure Diagnosis:: Degenerative disc disease of lumbar spine with lumbar radiculopathy symptoms and postlaminectomy syndrome lumbar spine with degenerative disease of the cervical spine cervical radiculopathy symptoms. Post-procedure Diagnosis:: Same Indications for Procedure:: Patient is a pleasant 66-year-old white male who we have been treating for low back pain and neck pain with cervical and lumbar radiculopathy symptoms as well as postlaminectomy syndrome of lumbar spine. He has had epidural steroid injections and other injections which have only giving given him temporary relief. He has failed previous surgery as long as well as oral medications and physical therapy. He is not a candidate for any further surgery. He is not getting long-lasting relief with injections. He has been off of his tramadol for 48 hours. He has had a successful psychological evaluation. He presents for intrathecal pump trial today. Procedure Details:: Pain pump trial Informed consent was obtained and the risk and benefits of the procedure was explained to the patient. The patient was taken to the procedure room and placed prone on the procedure table. Patient was prepped and draped in sterile fashion. C-arm fluoroscopy was used to view the lumbar spine. The skin and subcutaneous tissues were anesthetized using lidocaine. I placed a 18-gauge spinal needle into the L5-S1 interspace and advanced until clear CSF was obtained. After this intrathecal catheter was inserted and advanced very easily to the T8 vertebral body. The needle was withdrawn. We were able to freely withdraw clear CSF through the catheter. We then injected intrathecal fentanyl single shot bolus of 25 mcg followed by saline and followed by the previous CSF that was withdrawn. The needle and catheter were then removed and a Band-Aid was placed. Patient tolerated the procedure well with no complications. We reevaluated the patient after 30 minutes to 1 hour. He was also reassessed by physical therapy. Patient was assessed and had 90 to 100% relief in his pain symptoms. He did very well. He was more functional. He was walking much better. This was a successful intrathecal pump trial. The patient I discussed and he wants to pursue permanent placement of intrathecal pain pump. Catheter entry will be at L5-S1 and catheter tip will be at T8. We will plan on intrathecal morphine 5 mg/mL to start at 0.25 mg/day. Plan and Disposition:: This patient did very well with his intrathecal pump trial. He was 90 to 100% better. He was much more functional. Pain score went down to a 0-1 out of 10. He had no neck pain and minimal back pain. This was a successful trial. We will follow-up with him in 2 weeks to evaluate efficacy of the trial however at this time this seems to be a successful trial. We will plan on permanent placement with intrathecal morphine 5 mg/mL to start at 0.25 mg/day. Catheter placement will be at the T8 vertebral body.
--- NOTE | 2022-08-02 10:44 | PC.NURSE ---
IV dc'd at this time, catheter tip intact, pt. tolerated well. No complaints or needs expressed at this time.
--- NOTE | 2022-08-02 10:48 | PC.NURSE ---
PT at bedside
== END 2022-08-02 10:50 | disposition home or self-care (01) ==
PROVIDERS: PCP Internal Medicine Adolescent Medicine; Visit Provider Anesthesiology
DX: M51.16 Intervertebral disc disorders with radiculopathy, lumbar region (principal); M50.10 Cervical disc disorder with radiculopathy, unspecified cervical region; M96.1 Postlaminectomy syndrome, not elsewhere classified
CPT/HCPCS: 62323; 96365

== ENCOUNTER → 2022-08-30 07:42 | Outpatient (CLI) | payer MEDICARE, OTHER, SELFPAY ==
--- NOTE | 2022-08-30 07:45 | CT_ITS ---
FINAL REPORT CLINICAL HISTORY: H/O NICOTINE DEPENDENCE Forty-five pack-year history FINDINGS: Axial images were obtained from the lung apex to the mid abdomen by computed tomography. Low-dose protocol was utilized. CTDl vol(mGy): 2.90 DLP (mGy-cm): 96.38 FINDINGS: Streak artifact from the patient's arms decreases the sensitivity of the exam. There is no axillary adenopathy. There is no hilar or mediastinal adenopathy. The heart size is normal. There is no pericardial or pleural effusion. Limited images of the upper abdomen demonstrate surgical clips in the right upper quadrant consistent with cholecystectomy. Lung window images demonstrate multiple calcified granulomas bilaterally. There are several less than 5 mm bilateral noncalcified pulmonary nodules. One of the larger nodules, in the left lower lobe on image 42, measures 4 mm. Multiple other smaller nodules are seen. IMPRESSION: Lung RADS category 2. Recommend 12 month follow-up low-dose chest CT. Reviewed, Interpreted and Dictated by Shai Rosario III, MD Transcribed by Geovanna Bonilla Authenticated and [facility]
--- NOTE | 2022-08-30 07:46 | US_ITS ---
FINAL REPORT CLINICAL HISTORY: H/O NICOTINE DEPENDENCE FINDINGS: ABDOMINAL AORTA ANEURYSM SCREENING Limited sonographic images were obtained of the abdomen to evaluate the abdominal aorta and iliac arteries. Imaging is suboptimal secondary to body habitus and overall bowel. The proximal abdominal aorta measures up to 3.1 cm in greatest dimension which is borderline. The iliac arteries are within normal limits measuring 1.1 on the right and 1.0 in the left. IMPRESSION: Borderline abdominal aortic aneurysm. Consider abdominal CT for further evaluation. Reviewed, Interpreted and Dictated by Shai Rosario III, MD Transcribed by Geovanna Bonilla Authenticated and . [facility]
== END ==
PROVIDERS: PCP Internal Medicine Adolescent Medicine; Visit Provider Internal Medicine Adolescent Medicine
DX: Z87.891 Personal history of nicotine dependence (principal); Z12.2 Encounter for screening for malignant neoplasm of respiratory organs
CPT/HCPCS: 71271; 76705

== ENCOUNTER → 2022-09-04 12:55 | Outpatient (CLI) | payer MEDICARE, OTHER, SELFPAY ==
[2022-09-04 15:28] LABS: Blood Urea Nitrogen 16 mg/dl (9-20); Estimated Glomerular Filt Rate 47 ml/min (>60); GFR (African American) 57 ML/MIN (>60)
== END ==
PROVIDERS: PCP Internal Medicine Adolescent Medicine; Visit Provider Nurse Practitioner Family
DX: Z01.812 Encounter for preprocedural laboratory examination (principal)
CPT/HCPCS: 36415; 82565; 84520

== ENCOUNTER → 2022-09-05 07:09 | Outpatient (CLI) | payer MEDICARE, OTHER, SELFPAY ==
--- NOTE | 2022-09-05 07:17 | CT_ITS ---
FINAL REPORT TECHNIQUE: Pre-and postcontrast images of the abdomen were performed by computed tomography. A CTA was performed. This study was performed with techniques to keep radiation doses as low as reasonably achievable (ALARA). Individualized dose reduction techniques using automated exposure control or adjustment of mA and/or kV according to the patient''s size were employed. CLINICAL HISTORY: ABDOMINAL AORTA, FINDINGS: CTA ABDOMEN ABDOMEN: There is a calcified granuloma in the right middle lobe. No adrenal masses are identified. The spleen and pancreas and kidneys are unremarkable. There is a subtle hypervascular focus in the posterior right liver lobe measuring about 1.5 cm in diameter and well seen on image 26 of series 3. CTA: The abdominal aorta is proper caliber. The SMA, celiac axis, and DEONDRE are widely patent. There is no significant stenosis or calcification. The renal arteries are patent bilaterally. IMPRESSION: Widely patent visceral vessels. No evidence of abdominal aortic aneurysm. Hypervascular focus in posterior right lobe of the liver, may be related to a small hemangioma. Reviewed, Interpreted and Dictated by Aravind Allen MD Transcribed by Sharon Mathews Authenticated and [facility]
== END ==
PROVIDERS: PCP Internal Medicine Adolescent Medicine; Visit Provider Internal Medicine Adolescent Medicine
DX: I71.40 Abdominal aortic aneurysm, without rupture, unspecified (principal)
CPT/HCPCS: 74175; Q9967

== ENCOUNTER 2022-09-20 06:39 | Day surgery (SDC) | payer MEDICARE, OTHER, SELFPAY ==
[2022-09-17 16:44] VITALS: BMI 33.0
[2022-09-20 07:31] VITALS: BP 179/97; PULSE 74; RESP 20; TEMP 36.1; O2SAT 97
[2022-09-20 07:58] LABS: Basophils # 0.1 K/mm3 (0-0.2); Basophils % 0.8 % (0.1-2.0); Chloride 104 mmol/L (98-107); Eosinophils # 0.5 K/mm3 (0.0-0.4); Eosinophils % 4.2 % (0.1-12.0); Hemoglobin 13.7 g/dL (14.1-18.0); Lymphocytes # 1.3 K/mm3 (0.7-4.5); Lymphocytes % 12.5 % (10-50); Mean Corpuscular HGB Conc 31.8 g/dL (31.8-35.4); Mean Corpuscular Hemoglobin 30.3 pg (27.0-31.2); Mean Corpuscular Volume 95.4 fl (80-94); Monocytes # 0.5 K/mm3 (0.1-1.0); Monocytes % 4.2 % (1.7-9.3); Neutrophils # 8.4 K/mm3 (1.8-7.8); Neutrophils % 78.3 % (37.0-80.0); Platelet Count 255 K/mm3 (142-424); Potassium 3.7 mmoL/L (3.5-5.1); Red Blood Count 4.51 M/mm3 (4.60-6.20); Red Cell Distribution Width 14.6 % (11.5-17.5); Sodium 143 mmol/L (136-145); White Blood Count 10.7 K/mm3 (4.8-10.8)
[2022-09-20 08:01] LABS: Anion Gap 17.7 mEq/L (5-15); Blood Urea Nitrogen 11 mg/dl (9-20); Calcium 9.1 mg/dl (8.4-10.2); Carbon Dioxide 25 mmol/L (22.0-30.0); Creatinine Clearance Estimated 77 mL/min (50-200); Estimated Glomerular Filt Rate 51 ml/min (>60); GFR (African American) 61 ML/MIN (>60); Glucose 123 mg/dl (74-100)
--- NOTE | 2022-09-20 08:57 | P.PN_ITS ---
[facility] Medical History (Updated 09/20/22 @ 07:44 by Rashida Draper RN) Degenerative disc disease Diabetes History of arthritis Hyperlipemia Hypertension Kidney stone Surgical History (Updated 09/20/22 @ 07:43 by Rashida Draper RN) History of appendectomy History of cholecystectomy History of lumbar fusion History of surgery Family History Other Family history of stroke Social History (Updated 09/20/22 @ 07:46 by Rashida Draper RN) Smoking Status: Current every day smoker tobacco type: cigarettes packs per day: 1 second hand exposure: No alcohol intake: never counseling provided: none substance use type: denies use current occupational status: disabled Travel in the last 8 weeks: None household members: spouse housing: house current occupational exposures/hazards: No caffeine: Yes [facility] Anesthesia Checklist Patient Identification Patient Identification: Arm Band Structural Data Admitted From: Home Planned Operative Procedure/s: Intrathecal Pain Pump Catheter and Generator Placement under Fluoroscopy Consent for Planned Operative Procedure(s) Verified: Yes Verified Documents: Surgical Consent and History and Physical NPO Status Verified Time NPO: 00:00 Additional verifications Anesthesia Reactions: No Hx Blood Transfusions: No Blood Transfusion Reaction: No Airway Assessment C-Spine Mobility Assessed: Yes TMJ Mobility Assessed: Yes Dentition: Edentulous Neurological Assessment Level of Consciousness: Awake and Alert Anesthesia Plan Anesthesia Risk discussed: Yes Anesthesia Plan: Verified ASA Class: III Anesthesia Type: MAC
[2022-09-20 09:25] VITALS: BP 138/71; PULSE 82; RESP 18; TEMP 36.1; O2SAT 93
[2022-09-20 09:30] VITALS: PULSE 74; PULSE 75
[2022-09-20 09:35] VITALS: BP 156/87; PULSE 76; RESP 18; O2SAT 96
--- NOTE | 2022-09-20 09:42 | EXP.OP.NOTE ---
Date of procedure: 09/20/22 Pre-op Diagnosis:: Degenerative disc disease of lumbar spine with lumbar radiculopathy symptoms. Postlaminectomy syndrome lumbar spine Post-op Diagnosis:: Same Procedure performed:: Permanent placement of intrathecal pain pump catheter with tunneling and pain pump reservoir Surgeon:: Silverio Charles MD CHIEF TECHNOLOGY OFFICER:: Miguel Banks Anesthesia: MAC Estimated blood loss (mL): 5 Clinical Note:: This patient is a pleasant 66-year-old white male who we have been treating for low back pain and neck pain with cervical and lumbar radiculopathy symptoms as well as postlaminectomy syndrome lumbar spine. He has failed all previous conservative treatments including injections, oral medications, physical therapy and previous surgery. He has had a successful psychological evaluation. He is also had a successful intrathecal pump trial. He presents for permanent placement of his intrathecal pain pump today. We will start him on intrathecal morphine at 0.1 mg/day. Operative findings:: None Operative note:: Informed consent was obtained and the risk and benefits of the procedure was explained to the patient. The patient was taken the operating room placed prone on the procedure table. He was prepped and draped in sterile fashion. C-arm fluoroscopy was used to view the right flank. We identify the iliac crest and 12th rib. We created the pump pocket senior living in between the iliac crest and 12th rib. We dissected out the pocket and placed antibiotic soaked Ray-Lisseth's in the pocket for hemostasis. We then moved to the back. C-arm fluoroscopy was used to view the lumbar spine at L5-S1. The skin and subcutaneous tissues adjacent were anesthetized using lidocaine and we dissected down to the lumbar paraspinous fascia. A 15-gauge spinal needle was inserted and advanced into the L5-S1 interspace until clear CSF was obtained. After this intrathecal catheter was inserted and advanced very easily to the T8 vertebral body. Catheter placement was checked in a lateral view and found to be in the posterior aspect. The stylette of the catheter and the needle were withdrawn. The cath was secured to the fascia with anchoring devices and 2-0 Prolene. I then tunneled the catheter to the pump pocket. I previously prepared the pump was 20 mils of intrathecal morphine 1 mg/mL. I attached catheter to the pump. We were able to freely withdraw clear CSF through the catheter access port. The pump was placed in the pocket. Again we were able to freely withdraw clear CSF through the side-port. Both incisions were then closed with 2-0 Vicryl followed by jean. A wound VAC was placed over both incisions. An abdominal binder was placed. The patient was taken recovery stable condition. The pump was interrogated and started at 0.1 mg/day of intrathecal morphine 1 mg/mL. Plan and disposition: Patient was discharged home neurologic intact with good relief of pain symptoms. We will discharge him with Bactrim DS twice a day for 5 days. We will follow-up with him in 1 week for wound check and reprogramming. We will follow-up in 2 weeks for staple removal. Condition: stable Disposition: PACU Complications:: None
[2022-09-20 09:50] VITALS: BP 151/81; PULSE 74; RESP 18; O2SAT 96
--- NOTE | 2022-09-20 09:52 | SUR.PHASEII ---
Called Dr. Barton's office and spoke to Alicia, reported Rhonci and wheezes T/O, pt reports of cough and SOA at times x 1 week at home. Alicia said would talk to Dr. Barton.
--- NOTE | 2022-09-20 09:59 | SUR.PHASEII ---
Alicia walton called, Dr. Barton does not want to see pt in office. No further order. Spoke with pt and educated on when to seek emergency care. Pt and verbalized understanding.
[2022-09-20 10:30] VITALS: BP 143/79; PULSE 82; RESP 20; O2SAT 96
--- NOTE | 2022-09-20 10:35 | SUR.PHASEII ---
Watch And Clock Repair Clerk at bedside fitting pt with his back brace.
[2022-09-20 16:27] LABS: POC Glucose,Bedside 122 (70-110)
== END 2022-09-20 10:36 | disposition home or self-care (01) ==
PROVIDERS: PCP Internal Medicine Adolescent Medicine; Visit Provider Anesthesiology
DX: M51.16 Intervertebral disc disorders with radiculopathy, lumbar region (principal); M96.1 Postlaminectomy syndrome, not elsewhere classified; Z72.0 Tobacco use; Z79.899 Other long term (current) drug therapy
CPT/HCPCS: 62350; 62362; 80048; 82962; 85025; 94640; 96374; C1755; C1772; J2704

== ENCOUNTER → 2022-09-26 09:46 | Outpatient (POV) | payer MEDICARE, OTHER, SELFPAY ==
[2022-09-26 10:30] VITALS: BP 121/71; PULSE 66; RESP 18; TEMP 36.6; O2SAT 97; BMI 31.5
--- NOTE | 2022-09-26 12:27 | EXP.PAIN.SOA ---
[facility] Pain Management SOAP Note Subjective:: Patient is a pleasant 66-year-old male who presents today for follow-up of intrathecal pain pump placement on 09/20/2022. We are currently treating the patient for degenerative disc disease of cervical and lumbar spine with cervical and lumbar radiculopathy symptoms, postlaminectomy syndrome. Today the patient rates his pain a 4 out of 10. Patient states he has had some incisional site pain along with his chronic pain symptoms. Patient also states that he had urinary retention issues prior to this procedure and has since continued to have additional problems. Patient states he is able to go to the restroom and urinate however it frequently takes longer and he actually has to sit down. Patient states in the past he has had a transurethral bladder resection due to bladder tumors by Dr. Bonilla and then he would frequently have cystoscopies every couple months to verify no new changes. Patient states it has been about 6 to 8 months since he seen Dr. Bonilla. Patient is managed with tamsulosin 0.4 mg daily. Patient also states since going off of his tramadol following surgery he did have some diarrhea due to his medication that he took Linzess. Patient has stopped taking this medication and at this time is doing okay. Patient has been taking his baclofen for his occasional muscle spasms. Patient is currently managed with morphine 1 mg/mL with a daily dose of 0.0999 mg/day. Patient denies any side effects from this medication. He states this medication is adequately helping his pain symptoms. Patient states that prior to the surgery he frequently experienced constant stiff neck with limited range of motion. Following this procedure he states he no longer feels stiff however he continues to have some range of motion issues due to a previous fusion surgery. Patient is given diazepam [address] Carey's office. His Constantine is [id number]. It is been reviewed and appropriate. Review of Systems: General: No recent weight changes, no fever, no sleep disturbances Respiratory: No cough, no shortness of air, no recurring pulmonary infections Cardiovascular/peripheral vascular: No chest pain, no palpitations, no edema, no shortness of breath Gastrointestinal: No new onset incontinence, normal bowel movements reported Genitourinary: No new onset incontinence, urinary retention Musculoskeletal: Low back pain, neck pain Psychiatric: [Normal mood/affect] Neurological: [Denies weakness in extremities], [denies balance issues] Objective:: Physical Exam: General: Alert and oriented x3, no acute distress, pleasant and cooperative Lungs: Respirations even and unlabored, symmetrical chest expansion Eyes: PERRL Musculoskeletal: Flexion and extension of, cervical, lumbar [spine] somewhat guarded secondary to pain, [antalgic gait noted] Neurological: Speech clear, no gross sensory deficit Skin: Incision site clean, dry, well approximated, no erythema, jean intact Assessment:: Degenerative disc disease of lumbar and cervical spine with lumbar and cervical radiculopathy symptoms, postlaminectomy syndrome lumbar spine Plan:: Patient is doing well currently with his intrathecal pain pump. I have counseled the patient to contact his urologist and make an appointment to follow-up. We will see the patient back in 2 weeks to remove his jean and apply skin glue and Steri-Strips. I have counseled the patient to continue his restrictions of minimal bending lifting twisting, no tub bathing and to continue to use his abdominal binder. At this time we will hold off programming his PTM device. Patient will return to clinic in 2 weeks for reevaluation of symptoms, staple removal and follow-up. Patient has been instructed to contact the clinic with any concerns before the next appointment. Dr. Charles has reviewed this note and agrees with this plan of care. This note was dictated using voice recognition software and make contain errors or omissio
== END ==
PROVIDERS: PCP Internal Medicine Adolescent Medicine; Visit Provider Nurse Practitioner Family
DX: M51.16 Intervertebral disc disorders with radiculopathy, lumbar region (principal); M50.10 Cervical disc disorder with radiculopathy, unspecified cervical region; M96.1 Postlaminectomy syndrome, not elsewhere classified
CPT/HCPCS: 99212; G0463

== ENCOUNTER → 2022-10-14 08:56 | Outpatient (POV) | payer MEDICARE, OTHER, SELFPAY ==
[2022-10-14 09:41] VITALS: BP 139/77; PULSE 70; RESP 18; O2SAT 96; BMI 31.8
--- NOTE | 2022-10-14 10:02 | EXP.PAIN.SOA ---
[facility] Pain Management SOAP Note Subjective:: Patient is a pleasant 66-year-old male who presents today for follow-up of intrathecal pain pump placement on 09/20/2022. We are currently treating the patient for degenerative disc disease of lumbar and cervical spine with cervical and lumbar radiculopathy symptoms, postlaminectomy syndrome. Today the patient rates his pain a 1 out of 10. Patient states he is doing well and has continued to have improvement in his chronic pain symptoms. Patient states he does still have some incisional pain however it is minimal. At our last visit patient had been experiencing some urinary issues however patient states that this has all resolved and he is doing well. Patient in the past had a transurethral bladder resection due to bladder tumors performed by Dr. Bonilla. Patient states he continues to have cystoscopies every couple of months to verify no change however it has been approximately 6 to 8 months since he has seen him. Patient is currently managed with morphine 1 mg/mL with a daily dose of 0.0999 mg/day. Patient denies any side effects from this medication. He states this medication does adequately help manage his pain symptoms. Patient is experiencing a rash along his bilateral lower extremities. Patient stated this is been going on for approximately 2 days. Patient denies any new change of body wash, laundry soap, food changes. Patient states he has been experiencing itching with this rash and has taken Benadryl along with topical creams to provide relief. Patient states he does continue to use extra strength Tylenol as needed to provide additional relief of his symptoms. His Constantine is [id number]. It has been reviewed and appropriate. Review of Systems: General: No recent weight changes, no fever, no sleep disturbances Respiratory: No cough, no shortness of air, no recurring pulmonary infections Cardiovascular/peripheral vascular: No chest pain, no palpitations, no edema, no shortness of breath Gastrointestinal: No new onset incontinence, normal bowel movements reported Genitourinary: No new onset incontinence Musculoskeletal: Low back pain Psychiatric: [Normal mood/affect] Neurological: [Denies weakness in extremities], [denies balance issues] Objective:: Physical Exam: General: Alert and oriented x3, no acute distress, pleasant and cooperative Lungs: Respirations even and unlabored, symmetrical chest expansion Eyes: PERRL Musculoskeletal: Flexion and extension of lumbar [spine] somewhat guarded secondary to pain, [antalgic gait noted] Neurological: Speech clear, no gross sensory deficit Skin: Incision sites clean, dry, well approximated with minimal erythema noted Assessment:: Degenerative disc disease of cervical and lumbar spine with cervical and lumbar radiculopathy symptoms, postlaminectomy syndrome Plan:: Patient has had significant improvement of his pain symptoms following his placement of his intrathecal pain pump. Patient did have his jean removed during today's visit and skin glue and Steri-Strips applied. Patient's incision sites were clean, dry, well approximated with minimal erythema noted. I have counseled the patient to continue to monitor the bilateral lower extremity rash on his legs for worsening of symptoms. Patient has been instructed to continue to try [id number] antihistamines along with topical creams such as hydrocortisone to help with the itching. I have instructed the patient to contact his primary care physician if this worsens as well as letting our office know. Patient was set up with his PTM device at today's visit. He is able to provide an additional 4 doses per day with a max dose of morphine 0.1397 mg/day. Patient has been instructed to continue his restrictions of minimal bending, twisting, lifting, no tub bathing and continue use of abdominal binder the full 6 weeks. Patient will return to clinic in 1 month for reevaluation of symptoms and follow-up. Patient has be
== END ==
PROVIDERS: PCP Internal Medicine Adolescent Medicine; Visit Provider Nurse Practitioner Family
DX: M51.16 Intervertebral disc disorders with radiculopathy, lumbar region (principal); M50.10 Cervical disc disorder with radiculopathy, unspecified cervical region
CPT/HCPCS: 62368; 99212; 99213; G0463

== ENCOUNTER → 2022-11-21 09:10 | Outpatient (POV) | payer MEDICARE, OTHER, SELFPAY ==
[2022-11-21 09:21] VITALS: BP 131/66; PULSE 58; RESP 18; O2SAT 97; BMI 32.3
--- NOTE | 2022-11-21 09:47 | EXP.PAIN.PRO ---
Procedure Date: 11/21/22 Time: 09:50 Anesthesiologist:: Cindy Bowie APRN Complications:: None Pre-procedure Diagnosis:: Degenerative disc disease of cervical and lumbar spine with cervical and lumbar radiculopathy symptoms, postlaminectomy syndrome Post-procedure Diagnosis:: Same Indications for Procedure:: Patient is a pleasant 67-year-old male who presents today for intrathecal pain pump adjustment and reprogram. The patient is being treated for degenerative disc disease of cervical and lumbar spine with cervical and lumbar radiculopathy symptoms, postlaminectomy syndrome. Patient is currently being managed with morphine 1 mg/mL with a daily dose of 0.0999 mg/day. Patient denies any side effects from this medication. Patient previously had some issues with edema and rash on his lower extremities. Patient states that has since improved. Patient states he was given Lasix by his primary care doctor and the rash is now gone. Patient rates pain a 3 out of 10. Drug screen is appropriate. Constantine [id number] has been reviewed and is appropriate. Physical exam General: Alert and oriented x3, no acute distress, pleasant and cooperative Lungs: Respirations even and unlabored, symmetrical chest expansion Eyes: PERRL Musculoskeletal: Flexion and extension of lumbar [spine] somewhat guarded secondary to pain, [antalgic gait noted] Neurological: Speech clear, no gross sensory deficit Procedure Details:: Informed consent was obtained and the risk and benefits of the procedure were explained to the patient. Patient was taken to the procedure room where noninvasive monitoring was placed including noninvasive blood pressure cuff and pulse oximeter. Patient's pump was interrogated and was reprogrammed to morphine 1 mg/mL with a daily dose of 0.1099 mg/day. The patient tolerated the procedure well with no complications. Plan and Disposition:: We will see the patient back in the clinic at the next intrathecal refill. Patient has been instructed to contact the clinic with any concerns before the next appointment. Dr. Charles has reviewed this note and agrees with this plan of care. This note was dictated using voice recognition software and make contain errors or omissions. -- It Is medically necessary for this patient to continue to have their intrathecal pump refilled at regular intervals. This patient had an intrathecal pain pump implanted after meeting criteria of chronic intractable pain for greater than 3 months and failing conservative treatments. Patient has committed and been compliant to the treatment plan and all planned follow up care. Since implantation of the intrathecal pain pump, the patient has had decreased pain and been more functional. Oral medications have been reduced including intake of oral opioids. Patient continues to do well with intrathecal therapy with decrease in pain symptoms and increase in functional status. Stopping intrathecal medications can lead to life threatening withdrawal, seizures, cardiac arrest, severe pain, and possible . Pumps that are not refilled at regular intervals can be damages and cause and need for replacement. We continually titrate dose and concentration to optimize pain relief and function. We are limited in concentration for certain drugs to safely deliver medications through the pump and stay within the recommendations from the Polyanalgesic Consensus Committee Guidelines. Depending on dose and concentration these pumps may need to be refilled sooner than 3 months as we titrate.
== END | disposition home or self-care (01) ==
PROVIDERS: PCP Internal Medicine Adolescent Medicine; Visit Provider Nurse Practitioner Family
DX: M50.10 Cervical disc disorder with radiculopathy, unspecified cervical region (principal); M51.16 Intervertebral disc disorders with radiculopathy, lumbar region; M96.1 Postlaminectomy syndrome, not elsewhere classified; F17.210 Nicotine dependence, cigarettes, uncomplicated; Z79.899 Other long term (current) drug therapy
CPT/HCPCS: 62368; 99213; G0463

== ENCOUNTER 2023-01-28 08:15 | Day surgery (SDC) | payer MEDICARE, OTHER, SELFPAY ==
[2023-01-28 08:25] VITALS: BP 165/80; PULSE 69; RESP 18; TEMP 36.1; O2SAT 97; BMI 32.8
[2023-01-28 08:44] VITALS: BP 131/76; PULSE 58; RESP 18; O2SAT 98
[2023-01-28 08:49] VITALS: BP 131/76; PULSE 58; RESP 18
[2023-01-28 08:56] VITALS: BP 138/70; PULSE 55; RESP 18; O2SAT 97
--- NOTE | 2023-01-28 10:28 | EXP.PAIN.PRO ---
Procedure Date: 01/28/23 Time: 09:30 Anesthesiologist:: Ricci Hurt CRNA Complications:: None Pre-procedure Diagnosis:: Degenerative disc disease cervical and lumbar spine with cervical and lumbar radiculopathy symptoms. Postlaminectomy syndrome. Post-procedure Diagnosis:: Same. Indications for Procedure:: Patient is a very pleasant 67-year-old male that comes our clinic today for intrathecal pain pump interrogation and refill. Patient is doing very well on his current settings of morphine sulfate 1 mg/mL at 0.01 mg/day. Procedure Details:: Details of the procedure were explained to the patient. The patient taken procedure room placed in the sitting position. The area over the pump was cleansed using chlorhexidine as a cleansing solution. The pump was accessed with ease using a 22-gauge inch and a half needle. 5 mL of solution was removed and discarded. The pump was then filled with morphine sulfate 1 mg/mL. The rate will continue at 0.01 mg/day. Plan and Disposition:: Patient was discharged without incident.
== END 2023-01-28 08:56 | disposition home or self-care (01) ==
PROVIDERS: PCP Internal Medicine Adolescent Medicine; Visit Provider Nurse Anesthetist, Certified Registered
DX: Z45.1 Encounter for adjustment and management of infusion pump (principal); M51.16 Intervertebral disc disorders with radiculopathy, lumbar region; M50.10 Cervical disc disorder with radiculopathy, unspecified cervical region
CPT/HCPCS: 95991

== ENCOUNTER → 2023-04-23 09:01 | Outpatient (CLI) | payer MEDICARE, OTHER, SELFPAY ==
--- NOTE | 2023-04-23 09:03 | XR_ITS ---
FINAL REPORT CLINICAL HISTORY: chronic steroid COMPARISON: 10/06/2018 FINDINGS: Using L1-4, the bone mineral density of the spine is 1.060 g/cm2, corresponding to T-score of -0.3. This is decreased from 1.321 on the prior study. Using the left hip, the bone mineral density of the femoral neck is 0.668 g/cm2, corresponding to a T-score of -1.9, consistent with low bone density. This is decreased from 0.897 on the previous study. FRAX 10 year fracture risk is 5.2% for a hip fracture and 15% for a major osteoporotic fracture. Using the right hip, the bone mineral density of the femoral neck is 0.647 g/cm2, corresponding to a T-score of -2.1, consistent with low bone density. This is decreased from 0.869 on the previous study. FRAX 10 year fracture risk is 6.2% for a hip fracture and 16% for a major osteoporotic fracture. NOTE: T-score: Standard deviation compared with peak bone mass of young adult mean. *Following the recommendations of the International Society of Bone densitometry, classification of hip BMD is based on the lower of two T-scores; total hip or femoral neck. IMPRESSION: Normal bone mineral density of the lumbar spine, with diminished bone mineral density in the bilateral hips consistent with low bone density. Reviewed, Interpreted and Dictated by Aravind Allen MD Transcribed by Christelle Herrera Authenticated and [facility]
== END ==
PROVIDERS: PCP Internal Medicine Adolescent Medicine; Visit Provider Internal Medicine Adolescent Medicine
DX: Z79.52 Long term (current) use of systemic steroids (principal); Z13.820 Encounter for screening for osteoporosis
CPT/HCPCS: 77080

== ENCOUNTER 2023-05-20 08:17 | Day surgery (SDC) | payer MEDICARE, OTHER, SELFPAY ==
[2023-05-20 08:23] VITALS: BP 123/68; PULSE 73; RESP 16; TEMP 36.2; O2SAT 97; BMI 32.7
--- NOTE | 2023-05-20 08:42 | EXP.PAIN.PRO ---
Procedure Date: 05/20/23 Time: 08:40 Anesthesiologist:: Ricci Hurt CRNA Complications:: None Pre-procedure Diagnosis:: Degenerative disc lumbar spine multilevels. Lumbar radiculopathy. Lumbar postlaminectomy syndrome Post-procedure Diagnosis:: Same. Indications for Procedure:: Patient is a very pleasant 67-year-old male that comes our clinic today for intrathecal pain pump interrogation refill. Patient currently being managed with morphine sulfate 1 mg/mL at 0.1099 mg/day. Patient is requesting slight increase in the overall intrathecal rate today. Having some low back pain with activity. However, he reports being significantly better since having the pump implanted. We will increase his pump rate to 0.1 to 09 mg/day. Procedure Details:: Details of the procedure explained to the patient. The patient taken the procedure room placed in the sitting position. The area over the pump was cleaned using chlorhexidine as a cleansing solution. The pump was interrogated. The pump was accessed with ease using 22-gauge inch and half needle. 6 cc of solution was withdrawn and discarded appropriately. The pump was then filled with 20 cc incrementally of morphine sulfate 1 mg/mL. The pump was interrogated. The rate was increased to 0.1 to 09 mg/day. Plan and Disposition:: Patient was discharged without incident.
[2023-05-20 08:44] VITALS: BP 149/74; PULSE 59; RESP 18; O2SAT 97
[2023-05-20 08:49] VITALS: BP 128/68; PULSE 54; RESP 18; O2SAT 97
== END 2023-05-20 08:53 | disposition home or self-care (01) ==
PROVIDERS: PCP Internal Medicine Adolescent Medicine; Visit Provider Nurse Anesthetist, Certified Registered
DX: M51.16 Intervertebral disc disorders with radiculopathy, lumbar region (principal); M96.1 Postlaminectomy syndrome, not elsewhere classified
CPT/HCPCS: 95991

== ENCOUNTER → 2023-07-07 13:29 | Outpatient (POV) | payer MEDICARE, OTHER, SELFPAY ==
--- NOTE | 2023-07-07 13:41 | EXP.PAIN.SOA ---
[facility] Pain Management SOAP Note Subjective:: Patient is a pleasant 67-year-old male who presents today for follow-up. We are currently treating the patient for degenerative disc disease of lumbar spine with lumbar radiculopathy symptoms, lumbar postlaminectomy syndrome. Today he rates his pain a 4 out of 10. Patient states his pain is all in his right shoulder and states this has been going on for over a month and continues to worsen. Patient denies any specific trauma or injury. He states it is an aching, nagging sensation that is worse with increased activity. He does state it is starting to interfere with his ability perform activities of daily living such as cooking or cleaning. Patient is currently managed with intrathecal morphine 1 mg/mL with a daily dose of 0.1209 mg/day. Patient denies any side effects from this medication. He states it does provide significant improvement of his low back pain. He is also prescribed diazepam 2 mg daily from his primary care doctor. His Constantine is [id number]. Its been reviewed and appropriate. Review of Systems: General: No recent weight changes, no fever, no sleep disturbances Respiratory: No cough, no shortness of air, no recurring pulmonary infections Cardiovascular/peripheral vascular: No chest pain, no palpitations, no edema, no shortness of breath Gastrointestinal: No new onset incontinence, normal bowel movements reported Genitourinary: No new onset incontinence Musculoskeletal: Right shoulder pain Psychiatric: [Normal mood/affect] Neurological: [Denies weakness in extremities], [denies balance issues] Objective:: Physical Exam: General: Alert and oriented x3, no acute distress, pleasant and cooperative Lungs: Respirations even and unlabored, symmetrical chest expansion Eyes: PERRL Musculoskeletal: Flexion and extension of right shoulder somewhat guarded secondary to pain, [antalgic gait noted] Neurological: Speech clear, no gross sensory deficit Assessment:: Degenerative disc disease of lumbar spine with lumbar radiculopathy symptoms, lumbar postlaminectomy syndrome, right shoulder pain Plan:: Patient is experiencing significant pain in his right shoulder with limited range of motion. I have discussed with the patient that he may benefit from right shoulder intra-articular injection. Risk and benefits were explained to the patient and he would like to proceed forward with this plan of care. Patient will be scheduled for a right intra-articular shoulder injection. Patient has been instructed to contact the clinic with any concerns before the next appointment. Dr. Charles has reviewed this note and agrees with this plan of care. This note was dictated using voice recognition software and make contain errors or omissions. -- It Is medically necessary for this patient to continue to have their intrathecal pump refilled at regular intervals. This patient had an intrathecal pain pump implanted after meeting criteria of chronic intractable pain for greater than 3 months and failing conservative treatments. Patient has committed and been compliant to the treatment plan and all planned follow up care. Since implantation of the intrathecal pain pump, the patient has had decreased pain and been more functional. Oral medications have been reduced including intake of oral opioids. Patient continues to do well with intrathecal therapy with decrease in pain symptoms and increase in functional status. Stopping intrathecal medications can lead to life threatening withdrawal, seizures, cardiac arrest, severe pain, and possible . Pumps that are not refilled at regular intervals can be damages and cause and need for replacement. We continually titrate dose and concentration to optimize pain relief and function. We are limited in concentration for certain drugs to safely deliver medications through the pump and stay within the recommendations from the Polyanalgesic Consensus Committee Guidelines. Depending on dose and concentr
[2023-07-07 13:43] VITALS: BP 124/75; PULSE 57; RESP 18; O2SAT 97; BMI 32.3
== END ==
PROVIDERS: PCP Internal Medicine Adolescent Medicine; Visit Provider Nurse Practitioner Family
DX: M51.16 Intervertebral disc disorders with radiculopathy, lumbar region (principal); M96.1 Postlaminectomy syndrome, not elsewhere classified; M25.511 Pain in right shoulder
CPT/HCPCS: 99212; G0463

== ENCOUNTER 2023-07-15 11:53 | Day surgery (SDC) | payer MEDICARE, OTHER, SELFPAY ==
[2023-07-15 12:05] VITALS: BP 154/70; PULSE 65; RESP 18; TEMP 36.6; O2SAT 98; BMI 32.3
[2023-07-15 12:31] VITALS: BP 131/64; BP 131/65; PULSE 57; PULSE 61; RESP 18; O2SAT 98
[2023-07-15 12:32] VITALS: BP 131/64; PULSE 57; RESP 18; O2SAT 98
--- NOTE | 2023-07-15 12:37 | P.PCN_ITS ---
Procedure Date: 07/15/23 Time: 12:20 Anesthesiologist:: Ricci Hurt CRNA Complications:: None Pre-procedure Diagnosis:: Osteoarthritis right shoulder. Chronic right shoulder pain. Post-procedure Diagnosis:: Same. Indications for Procedure:: Patient is a very pleasant six 7-year-old male that comes our clinic today for intra-articular right shoulder injection. Patient has difficulty with flexion, extension, abduction and abduction secondary to right shoulder joint pain. He rates the pain 8/10. Patient has 5/5 strength in the right arm. However limited range of motion secondary to pain. Procedure Details:: Procedure Details: Right shoulder intra-articular injection Informed consent was obtained risk and benefits of the procedure were explained to the patient. Patient was taken to the procedure room. The right shoulder was prepped using ChloraPrep. A 25-gauge needle was used first anteriorly, laterally, and then posteriorly to inject 10 mL bupivacaine 0.25% and Depo- Medrol 40 mg. Patient tolerated procedure well with no complications. Plan and Disposition:: Patient was discharged without incident.
== END 2023-07-15 12:31 | disposition home or self-care (01) ==
PROVIDERS: PCP Internal Medicine Adolescent Medicine; Visit Provider Nurse Anesthetist, Certified Registered
DX: M19.011 Primary osteoarthritis, right shoulder (principal); M25.511 Pain in right shoulder; G89.29 Other chronic pain
CPT/HCPCS: 20610; J1040

== ENCOUNTER → 2023-08-06 10:23 | Outpatient (POV) | payer MEDICARE, OTHER, SELFPAY ==
--- NOTE | 2023-08-06 10:28 | A.OFFVIS_ITS ---
[facility] Pain Management SOAP Note Subjective:: Patient is a pleasant 67-year-old male who presents today for follow-up right shoulder. We are currently treating the patient for degenerative disc disease of lumbar spine with lumbar radiculopathy symptoms, lumbar postlaminectomy syndrome. Today he rates his pain a 4 out of 10. Patient states his pain is all in his right shoulder and states this has been going on for over a month and continues to worsen. Patient denies any specific trauma or injury. He states it is an aching, nagging sensation that is worse with increased activity. He does state it is starting to interfere with his ability perform activities of daily living such as cooking or cleaning. Patient is currently managed with intrathecal morphine 1 mg/mL with a daily dose of 0.1209 mg/day. Patient denies any side effects from this medication. He states it does provide significant improvement of his low back pain. He is also prescribed diazepam 2 mg daily from his primary care doctor. His Constantine is [phone]. Its been reviewed and appropriate. Review of Systems: General: No recent weight changes, no fever, no sleep disturbances Respiratory: No cough, no shortness of air, no recurring pulmonary infections Cardiovascular/peripheral vascular: No chest pain, no palpitations, no edema, no shortness of breath Gastrointestinal: No new onset incontinence, normal bowel movements reported Genitourinary: No new onset incontinence Musculoskeletal: Right shoulder pain Psychiatric: [Normal mood/affect] Neurological: [Denies weakness in extremities], [denies balance issues] Objective:: Physical Exam: General: Alert and oriented x3, no acute distress, pleasant and cooperative Lungs: Respirations even and unlabored, symmetrical chest expansion Eyes: PERRL Musculoskeletal: Flexion and extension of lumbar [spine] somewhat guarded secondary to pain, [antalgic gait noted] Neurological: Speech clear, no gross sensory deficit Assessment:: Degenerative disc disease of lumbar spine with lumbar radiculopathy symptoms, lumbar postlaminectomy syndrome [facility] Disclaimer: The information contained in this section may have been updated after the patient was seen, as this information can be updated by other users. Medical History Degenerative disc disease Diabetes History of arthritis Hyperlipemia Hypertension Kidney stone Surgical History History of appendectomy History of cholecystectomy History of lumbar fusion History of surgery Family History Other Family history of stroke Social History Smoking Status: Current every day smoker tobacco type: cigarettes packs per day: 1 second hand exposure: No alcohol intake: never substance use type: denies use current occupational status: retired Travel in the last 8 weeks: None household members: spouse housing: house current occupational exposures/hazards: No caffeine: Yes
[2023-08-06 10:31] VITALS: BP 117/69; PULSE 62; RESP 18; O2SAT 98; BMI 31.4
--- NOTE | 2023-08-06 10:38 | EXP.PAIN.PRO ---
Procedure Date: 08/06/23 Time: 10:38 Anesthesiologist:: Cindy Bowie APRN Complications:: None Pre-procedure Diagnosis:: degenerative disc disease of lumbar spine with lumbar radiculopathy symptoms, lumbar postlaminectomy syndrome, right shoulder pain/osteoarthritis Post-procedure Diagnosis:: Same Indications for Procedure:: Patient is a pleasant 67-year-old male who presents today for follow-up right shoulder intra-articular injection on 07/15/2023 and intrathecal adjustment and reprogram. We are currently treating the patient for degenerative disc disease of lumbar spine with lumbar radiculopathy symptoms, lumbar postlaminectomy syndrome, right shoulder pain/osteoarthritis. Today he rates his pain a 3 out of 10. He does state that he had at least 50% improvement following this injection and he states that it is still helping a little bit however it is starting to go back towards his baseline. Patient does state that initially he was able to increase his activity in his right shoulder with decreased pain. Today he continues to have pain in his shoulder that he describes as an aching, throbbing sensation. He does state it is starting to interfere with his ability perform activities of daily living such as cooking or cleaning. Patient is currently managed with intrathecal morphine 1 mg/mL with a daily dose of 0.1209 mg/day. Patient denies any side effects from this medication. He states that his pain has been a little bit more lately and is requesting a small increase of his pump medication. His Constantine is [phone]. Its been reviewed and appropriate. Physical Exam: General: Alert and oriented x3, no acute distress, pleasant and cooperative Lungs: Respirations even and unlabored, symmetrical chest expansion Eyes: PERRL Musculoskeletal: Flexion and extension of right shoulder somewhat guarded secondary to pain, [antalgic gait noted] Neurological: Speech clear, no gross sensory deficit Procedure Details:: Informed consent was obtained and the risk and benefits of the procedure were explained to the patient. Patient was taken to the procedure room where noninvasive monitoring was placed including noninvasive blood pressure cuff and pulse oximeter. Patient's pump was interrogated and was reprogrammed to morphine 0.1331 mg/day. The patient tolerated the procedure well with no complications. Plan and Disposition:: Patient tolerated his intrathecal increase with no complications and was discharged neurologically intact. I have discussed with the patient that he may benefit from a repeat intra-articular shoulder injection due to his worsening pain and limited range of motion in this joint. Risk and benefits of this injection were explained to the patient and he would like to proceed forward with this plan of care. Patient will be scheduled for a right shoulder intra-articular injection. Patient has been instructed to contact the clinic with any concerns before the next appointment. Dr. Charles has reviewed this note and agrees with this plan of care. This note was dictated using voice recognition software and make contain errors or omissions. -- It Is medically necessary for this patient to continue to have their intrathecal pump refilled at regular intervals. This patient had an intrathecal pain pump implanted after meeting criteria of chronic intractable pain for greater than 3 months and failing conservative treatments. Patient has committed and been compliant to the treatment plan and all planned follow up care. Since implantation of the intrathecal pain pump, the patient has had decreased pain and been more functional. Oral medications have been reduced including intake of oral opioids. Patient continues to do well with intrathecal therapy with decrease in pain symptoms and increase in functional status. Stopping intrathecal medications can lead to life threatening withdrawal, seizures, cardiac arrest, severe pain, and possible . Pumps that ar
== END | disposition home or self-care (01) ==
PROVIDERS: PCP Internal Medicine Adolescent Medicine; Visit Provider Nurse Practitioner Family
DX: M51.16 Intervertebral disc disorders with radiculopathy, lumbar region (principal); M96.1 Postlaminectomy syndrome, not elsewhere classified; M19.011 Primary osteoarthritis, right shoulder; M25.511 Pain in right shoulder; Z97.8 Presence of other specified devices
CPT/HCPCS: 62368; 99212; G0463

== ENCOUNTER 2023-08-12 10:31 | Day surgery (SDC) | payer MEDICARE, OTHER, SELFPAY ==
[2023-08-12 10:35] VITALS: BP 140/69; PULSE 68; RESP 16; TEMP 37.1; O2SAT 99; BMI 32.3
[2023-08-12 10:49] VITALS: BP 136/99; PULSE 59; RESP 18; O2SAT 96
--- NOTE | 2023-08-12 10:58 | P.PCN_ITS ---
Procedure Date: 08/12/23 Time: 10:40 Anesthesiologist:: Ricci Hurt CRNA Complications:: None Pre-procedure Diagnosis:: Osteoarthritis right shoulder. Chronic right shoulder pain. Degenerative disc lumbar spine multilevels. Lumbar radiculopathy. Post-procedure Diagnosis:: Same. Indications for Procedure:: Patient is a very pleasant 67-year-old male who comes our clinic today for intrathecal pain pump interrogation refill. Currently patient is being managed with morphine sulfate 1 mg/mL at a rate of 0.1331 mg/day. Patient doing very well with his current settings. He does not complain of any side effects or complications regarding intrathecal pain pump management. Patient complaining of right shoulder pain he describes as constant, dull, aching. Patient has 5/5 strength in the right arm however, patient has difficulty with range of motion secondary to pain. Procedure Details:: Details of the procedure explained to the patient. The patient taken procedure room placed in sitting position. The area over the pump was cleaned using chlorhexidine as a cleansing solution. The pump was interrogated. The pump was accessed with ease using a 22-gauge inch and half needle. 8 mL of solution was withdrawn discarded appropriately. The pump was then filled with 20 cc of a solution containing morphine sulfate 1 mg/mL. The rate will continue at 0.1331 mg/day. Right shoulder intra-articular injection Informed consent was obtained risk and benefits of the procedure were explained to the patient. Patient was taken to the procedure room. The right shoulder was prepped using ChloraPrep. A 25-gauge needle was used first anteriorly, laterally, and then posteriorly to inject 10 mL bupivacaine 0.25% and Depo- Medrol 40 mg. Patient tolerated procedure well with no complications. Plan and Disposition:: Patient was discharged without incident.
[2023-08-12 11:00] VITALS: BP 144/77; PULSE 57; RESP 16; O2SAT 99
== END 2023-08-12 11:00 | disposition home or self-care (01) ==
PROVIDERS: PCP Internal Medicine Adolescent Medicine; Visit Provider Nurse Anesthetist, Certified Registered
DX: M19.011 Primary osteoarthritis, right shoulder (principal); M25.511 Pain in right shoulder; G89.29 Other chronic pain; M51.16 Intervertebral disc disorders with radiculopathy, lumbar region; Z97.8 Presence of other specified devices
CPT/HCPCS: 95991; J1030

== ENCOUNTER 2023-11-11 10:44 | Day surgery (SDC) | payer MEDICARE, OTHER, SELFPAY ==
[2023-11-11 10:53] VITALS: BP 126/72; PULSE 89; RESP 20; TEMP 36.2; O2SAT 98; BMI 30.7
[2023-11-11 11:06] VITALS: BP 119/67; PULSE 66; RESP 18; O2SAT 98
[2023-11-11 11:07] VITALS: BP 119/67; PULSE 67; RESP 18; O2SAT 98
--- NOTE | 2023-11-11 11:10 | P.PCN_ITS ---
Procedure Date: 11/11/23 Time: 11:00 Anesthesiologist:: Ricci Hurt CRNA Complications:: None Pre-procedure Diagnosis:: Degenerative disc lumbar spine multilevels. Lumbar radiculopathy. Chronic right shoulder pain. DJD right shoulder. Post-procedure Diagnosis:: Same. Indications for Procedure:: Patient is a very pleasant 68-year male who comes our clinic today for intrathecal pain pump interrogation and refill. Patient currently being managed with morphine sulfate 1 mg/mL at a rate of 0.1331 mg/day. Patient is doing very well with his current settings. He is not requesting any changes in the pump rate. He does not report any side effects or complications regarding his intra thecal pain pump management. Procedure Details:: Details of the procedure explained to the patient. The patient taken procedure room placed in the sitting position. The area of the pump was cleansed using chlorhexidine's cleansing solution. The pump was interrogated. The pump was accessed with ease using a 22-gauge inch and half needle. 7 mL of solution was withdrawn discarded appropriately. The pump was then filled with 20 cc of solution containing morphine sulfate 1 mg/mL. The rate will continue at 0.1331 mg/day. Patient tolerated procedure without difficulty. There are no complications. Plan and Disposition:: Patient was discharged without incident.
[2023-11-11 11:16] VITALS: BP 127/71; PULSE 62; O2SAT 98
== END 2023-11-11 11:15 | disposition home or self-care (01) ==
PROVIDERS: PCP Internal Medicine Adolescent Medicine; Visit Provider Nurse Anesthetist, Certified Registered
DX: M51.16 Intervertebral disc disorders with radiculopathy, lumbar region (principal); M19.011 Primary osteoarthritis, right shoulder; M25.511 Pain in right shoulder; G89.29 Other chronic pain; Z97.8 Presence of other specified devices; Z45.1 Encounter for adjustment and management of infusion pump
CPT/HCPCS: 95991

== ENCOUNTER 2024-02-03 10:19 | Day surgery (SDC) | payer MEDICARE, OTHER, SELFPAY ==
[2024-02-03 10:31] VITALS: BP 121/75; PULSE 66; RESP 18; TEMP 36.4; O2SAT 98; BMI 30.8
[2024-02-03 10:34] VITALS: BP 152/51; PULSE 56; RESP 18; O2SAT 98
[2024-02-03 10:39] VITALS: BP 152/51; PULSE 56; RESP 18; O2SAT 97
--- NOTE | 2024-02-03 10:43 | P.PCN_ITS ---
Procedure Date: 02/03/24 Time: 10:30 Anesthesiologist:: Ricci Hurt CRNA Complications:: None Pre-procedure Diagnosis:: Degenerative disc lumbar spine multilevels. Lumbar radiculopathy. DJD right shoulder. Chronic right shoulder pain. Post-procedure Diagnosis:: Same. Indications for Procedure:: Patient is a very pleasant 68-year-old male comes our clinic today for intrathecal pain pump interrogation refill. He is currently being managed with morphine sulfate 1 mg/mL at a rate of 0.1331 mg/day. He is doing very well with his current settings. He is not reporting any side effects or complications. He does not request any changes in his rate today. Procedure Details:: Details of the procedure explained to the patient. The patient taken procedure room placed in sitting position. The area of the pump is cleansed using chlorh exidine the this is a cleansing solution. The pump was interrogated. The pump was accessed with ease using a 22-gauge inch and half needle. 7.1 mL of solution was drawn and discarded appropriate. The pump was then filled with 20 cc of solution containing morphine sulfate 1 mg/mL. The rate will continue at 0.1331 mg/day. Patient tolerated procedure without difficulty. There are no complications. Plan and Disposition:: Patient was discharged without incident.
[2024-02-03 10:45] VITALS: BP 125/69; PULSE 52; RESP 18; O2SAT 98
== END 2024-02-03 10:45 | disposition home or self-care (01) ==
PROVIDERS: PCP Internal Medicine Adolescent Medicine; Visit Provider Nurse Anesthetist, Certified Registered
DX: M51.16 Intervertebral disc disorders with radiculopathy, lumbar region (principal); M19.011 Primary osteoarthritis, right shoulder; M25.511 Pain in right shoulder; G89.29 Other chronic pain; Z97.8 Presence of other specified devices; Z45.1 Encounter for adjustment and management of infusion pump
CPT/HCPCS: 95991

== ENCOUNTER 2024-02-16 13:27 | Emergency (ER) | payer MEDICARE, OTHER, SELFPAY ==
[2024-02-16] VITALS (8 sets, daily range): BP systolic 150–169; BP diastolic 73–93; PULSE 55–63; RESP 18; TEMP 36.8; O2SAT 94–99; BMI 28.0
--- NOTE | 2024-02-16 13:27 | ECG_ITS ---
APPROVED REPORT Exam: Resting ECG HR:56 bpm ECG Measurements Heart Rate 56 AXES DC 167 P 16 QRSd 99 QRS -15 QT 445 T 67 QTc 436 Conclusion SINUS BRADYCARDIA MINIMAL VOLTAGE CRITERIA FOR LVH, CONSIDER NORMAL VARIANT [MEETS CRITERIA IN ONE OF: R(aVL), S(V1), R(V5), R(V5/V6)+S(V1)] NONSPECIFIC T-WAVE ABNORMALITY Electronically signed by : MANNY PELLETIER, 02/16/2024 15:53:57
--- NOTE | 2024-02-16 13:58 | XR_ITS ---
FINAL REPORT CLINICAL HISTORY: Precordial chest pain, weakness, chills and fever Patient sent to ER by PCP for intermittent chest pain. States for the last couple days he has felt bad, weakness, chills and fever. Chest pain states he feels like its pressure in his chest and does not radiate. COMPARISON: 02/04/2022 FINDINGS: PA and lateral views of the chest are obtained. There is no prior exam for comparison. The cardiac and mediastinal silhouettes are within normal limits. The lungs are clear. There is no pleural effusion, pneumothorax, or acute osseous abnormality. IMPRESSION: No radiographic evidence of acute cardiac or pulmonary disease. Reviewed, Interpreted and Dictated by Jessa Tillman MD Transcribed by Geovanna Bonilla Authenticated and [facility]
[2024-02-16 14:10] LABS: Basophils # 0.1 K/mm3 (0-0.2); Basophils % 0.8 % (0.1-2.0); Eosinophils # 0.4 K/mm3 (0.0-0.4); Eosinophils % 4.2 % (0.1-12.0); Hematocrit 44.9 % (42.0-52.0); Hemoglobin 14.3 g/dL (14.1-18.0); Lymphocytes # 1.2 K/mm3 (0.7-4.5); Lymphocytes % 11.4 % (10-50); Mean Corpuscular HGB Conc 31.8 g/dL (31.8-35.4); Mean Corpuscular Hemoglobin 30.9 pg (27.0-31.2); Mean Corpuscular Volume 97.2 fl (80-94); Mean Platelet Volume 8.9 fl (7.4-10.4); Monocytes # 0.4 K/mm3 (0.1-1.0); Monocytes % 3.7 % (1.7-9.3); Neutrophils # 8.3 K/mm3 (1.8-7.8); Neutrophils % 79.9 % (37.0-80.0); Platelet Count 274 K/mm3 (142-424); Red Blood Count 4.62 M/mm3 (4.60-6.20); Red Cell Distribution Width 14.5 % (11.5-17.5); White Blood Count 10.4 K/mm3 (4.8-10.8)
[2024-02-16 14:12] LABS: Chloride 100 mmol/L (98-107); Potassium 4.1 mmoL/L (3.5-5.1); Sodium 137 mmol/L (136-145)
[2024-02-16 14:15] LABS: Alanine Aminotransferase 28 U/L (12-78); Albumin Level 4.7 g/dl (3.5-5.0); Albumin/Globulin Ratio 1.3 (1.1-1.8); Alkaline Phosphatase 111 U/L (38-126); Anion Gap 11.1 mEq/L (5-15); Aspartate Amino Transferase 34 U/L (17-59); Bilirubin,Total 0.8 mg/dl (0.2-1.3); Blood Urea Nitrogen 16 mg/dl (9-20); Calcium 9.8 mg/dl (8.4-10.2); Carbon Dioxide 30 mmol/L (22.0-30.0); Creatinine Clearance Estimated 65 mL/min (50-200); Estimated Glomerular Filt Rate 50 ml/min (>60); GFR (African American) 61 ML/MIN (>60); Globulin 3.5 g/dL (1.3-3.2); Glucose 108 mg/dl (74-100); Total Protein,Serum 8.2 g/dl (6.3-8.2)
[2024-02-16] MEDS: METHYLPREDNISOLONE SOD SUCC 125MG VIAL 125 MG IV (14:31)
[2024-02-16 14:32] LABS: Troponin I < 0.01 ng/ml (0.00-0.034)
[2024-02-16] MEDS: IPRATROPIUM/ALBUTEROL 3 ML NEB IH (14:32)
--- NOTE | 2024-02-16 14:46 | [facility].EDCP ---
Discharge Plan Disposition Patient Disposition: Home, Self-Care Prescriptions Prescriptions: New prednisone 50 mg tablet 50 mg PO DAILY 5 Days Qty: 5 0RF doxycycline hyclate 100 mg tablet 100 mg PO BID 7 Days Qty: 14 0RF albuterol sulfate 90 mcg/actuation HFA aerosol inhaler 3 inh inhalation Q4H PRN (Reason: shortness of breath or wheezing) Qty: 6.7 0RF No Action omeprazole 20 mg capsule,delayed release(DR/EC) 20 mg PO DAILY 90 Days Patient Comments: prednisone 5 mg tablet 5 mg PO DAILY 90 Days Patient Comments: atorvastatin 80 mg tablet 80 mg PO DAILY 90 Days Patient Comments: glucosamine [id number] 500-250-400 mg tablet 500 tab PO DAILY venlafaxine 75 mg capsule,extended release 24hr 75 mg PO DAILY metformin 500 mg tablet 500 mg PO BID Qty: 0 linaclotide 145 mcg capsule 145 mcg PO DAILY Qty: 0 tamsulosin 0.4 mg capsule 0.4 mg PO DAILY Qty: 0 Humira 40 mg/0.8 mL syringe kit 40 mg SQ QWEEK verapamil 240 mg tablet extended release 240 mg PO DAILY erythromycin with ethanol 2 % gel 1 applic topical BID acetaminophen [Tylenol] 325 mg Tablet 1,000 mg PO DAILY PRN (Reason: Pain) diazepam 2 MG tablet 2 mg PO HS losartan 100 MG tablet 100 mg PO DAILY cholecalciferol (vitamin D3) 1,250 MCG capsule 5,000 unit PO DAILY diclofenac sodium 20 GM gel 20 g TP QID mupirocin 30 GM ointment 1 applic TP BID Rx Instructions: apply twice daily to right hallux wound. Referrals Follow up/Referrals: Rick Barton MD [Primary Care Provider] - See instructions Activity Restrictions/Add. Instructions Additional Instructions/Restrictions: At this time it was felt you are safe to be discharged home. If new or worsening symptoms please do not hesitate to return the emergency department. If symptoms persist please follow-up with your family doctor as you are able. Please take your medications as prescribed. Clinical Impressions Clinical Impression: Chest pain, Acute exacerbation of chronic obstructive pulmonary disease Discharge ED Provider: Antonio Palacios [facility] <Cindy Diallo, - Last Filed: 02/16/24 15:50> General Chief Complaint: Chest Pain Stated Complaint: CHEST PAIN Time Seen by Provider: 03/25/24 13:38 Mode of Arrival: Ambulatory Source of Information: Patient Limitations: No Limitations Description of Symptoms (Recalled from ER Triage Doc. by RN): Patient sent to ER by PCP for intermittent chest pain. States for the last couple days he has felt bad, weakness, chills and fever. Chest pain states he feels like its pressure in his chest and does not radiate. History of Present Illness HPI narrative: This patient is a 68-year-old male with a history of ankylosing spondylitis, hypertension, diabetes, and hyperlipidemia presenting with concern for chest pressure, fatigue, generalized weakness, and chills. He states that he is felt bad since last Friday02/11/24. He states that he has had a cough chronically secondary to his COPD, and he does not note that this is significantly worse, he does note that he does not feel well. He went to his primary care provider office today, Dr. Barton, who checked an EKG and noted that it was reassuring. I had an discussion with Dr. Barton who advised that the patient likely has bronchitis, but he wanted to get him checked out to make sure that he did not have ACS or elevation in troponins. Patient denies any true chest pain, shortness of breath, abdominal pain, nausea, vomiting, or other concerns. He just notes that he feels chest heaviness and generally unwell. Related Data Home Medications Medication Instructions Recorded Confirmed atorvastatin 80 mg tablet 80 mg PO DAILY Cholesterol 90 days 01/06/18 11/11/23 glucosamine sulfate 500 tab PO DAILY Arthritis 01/06/18 11/11/23 [id number] 500 mg-250 mg-400 mg tablet omeprazole 20 mg capsule,delayed 20 mg PO DAILY stomach 90 days 01/06/18 11/11/23 release prednisone 5 mg tablet 5 mg PO DAILY . 90 days 01/06/18 11/11/23 adalimumab 40 mg/0.8 mL 40 mg SQ QWEEK . 11/04/19 11/11/23 subcutaneous syringe kit (Humira) linaclotide 145 mcg capsule 145 mcg PO DAILY . #0 caps 11/04/19 11/11/23 metformin 500 mg tablet 500 mg PO BID Diabetes #0 tabs 11/04/19 11/11/23 tamsulosin 0.4 mg capsule 0.4 mg PO DAILY prostrate #0 caps 11/04/19 11/11/23 venlafaxine 75 mg capsule,extended 75 mg PO DAILY mood 02/28/21 11/11/23 release 24 hr verapamil 240 mg tablet,extended 240 mg PO DAILY Hypertension 05/31/21 11/11/23 release diazepam 2 mg tablet 2 mg PO HS sleep 10/02/21 11/11/23 cholecalciferol (vitamin D3) 1,250 5,000 unit PO DAILY Supplement 02/04/22 11/11/23 mcg (50,000 unit) capsule diclofenac sodium 1 % topical gel 20 g topical QID Arthritis 02/04/22 11/11/23 losartan 100 mg tablet 100 mg PO DAILY Hypertension 02/04/22 11/11/23 mupirocin 2 % topical ointment 1 applic topical BID Infection 02/22/22 11/11/23 acetaminophen 325 mg tablet 1,000 mg PO DAILY PRN Pain 09/20/22 11/11/23 (Tylenol) erythromycin with ethanol 2 % 1 applic topical BID . 09/20/22 11/11/23 topical gel Previous Rx's Medication Instructions Recorded albuterol sulfate 90 mcg/actuation 3 inh inhalation Q4H PRN shortness 02/16/24 aerosol inhaler of breath or wheezing #6.7 grams doxycycline hyclate 100 mg tablet 100 mg PO BID 7 days #14 tabs 02/16/24 prednisone 50 mg tablet 50 mg PO DAILY 5 days #5 tabs 02/16/24 Allergies Allergy/AdvReac Type Severity Reaction Status Date / Time No Known Allergies Allergy Verified 07/15/23 12:10 [facility] <Cindy Diallo DO - Last Filed: 02/16/24 15:50> [facility] Disclaimer: The information contained in this section may have been updated after the patient was seen, as this information can be updated by other users. Medical History Kidney stone History of arthritis Hyperlipemia Hypertension Diabetes Degenerative disc disease Surgical History History of surgery History of lumbar fusion History of appendectomy History of cholecystectomy Family History Other Family history of stroke Social History Smoking Status: Current every day smoker tobacco type: cigarettes packs per day: 1 second hand exposure: No alcohol intake: never substance use type: denies use current occupational status: retired Travel in the last 8 weeks: None household members: spouse housing: house current occupational exposures/hazards: No caffeine: Yes <Cindy Diallo DO - Last Filed: 02/16/24 15:50> ROS Obtained: Yes All systems reviewed & no additional complaints except as documented Physical Exam <Cindy Diallo DO - Last Filed: 02/16/24 15:50> General General appearance: alert and in no apparent distress Head Head exam: atraumatic and normocephalic Eye Eye exam: Present normal appearance, PERRL and EOMI ENT ENT exam: Present normal exam, normal oropharynx, mucous membranes moist and normal external ear exam Neck Neck exam: Present normal inspection, full ROM and trachea midline; Absent tenderness Chest Chest inspection: Present normal inspection and symmetric chest wall rise; Absent tenderness Respiratory Respiratory exam: Present wheezes and other (Wheezing and rhonchi noted bilaterally. No increased work of breathing.); Absent respiratory distress, stridor or accessory muscle use Cardiovascular Cardiovascular exam: Present regular rate and normal rhythm Abdominal Exam Abdominal exam: Present soft; Absent distention, tenderness or guarding Extremities Exam Extremities exam: Present normal inspection, full ROM and normal capillary refill; Absent tenderness or edema Back Exam Back exam: Present normal inspection and full ROM; Absent tenderness Neurological Exam Neurological exam: Present alert, oriented X3, CN II-XII intact and normal gait; Absent motor sensory deficit Psychiatric Psychiatric exam: Present normal affect and normal mood Skin Skin exam: Present warm and dry HEART Score <Cindy Diallo DO - Last Filed: 02/16/24 15:50> HEART Score HEART Score assessment performed?: Yes History (anamnesis): Slightly suspicious ECG: Non-specific disturbance Age: >65 years Risk factors: 3 or more risk factors Troponin: </= normal limit HEART Score: 5 <Antonio Palacios MD - Last Filed: 02/16/24 16:39> HEART Score HEART Score: 5 Critical Care <Cindy Diallo DO - Last Filed: 02/16/24 15:50> Critical Care Time Critical Care Time: No Medical Decision Making <Cindy Diallo DO - Last Filed: 02/16/24 15:50> Medical Records Medical records reviewed: Yes I reviewed the patient's medical records. [place] Inquiry Pt receiving controlled substance: No Vital Signs Vital Signs: 02/16/24 13:30 02/16/24 14:25 02/16/24 14:30 Temperature 98.3 F Temperature Source Oral Pulse Rate 56 L 55 L Pulse Rate [Right] 59 L Respiratory Rate 18 Blood Pressure 150/88 H 156/82 H Blood Pressure [Right Arm] 167/91 H Blood Pressure Mean [Right Arm] 116 Blood Pressure Source [Right Arm] Automatic Cuff 02 Sat by Pulse Oximetry 99 97 99 Oxygen Delivery Method Room Air Room Air Room Air 02/16/24 15:00 02/16/24 15:30 02/16/24 16:00 Temperature Temperature Source Pulse Rate 59 L 59 L 58 L Pulse Rate [Right] Respiratory Rate Blood Pressure 167/89 H 162/93 H 156/93 H Blood Pressure [Right Arm] Blood Pressure Mean [Right Arm] Blood Pressure Source [Right Arm] 02 Sat by Pulse Oximetry 98 99 94 L Oxygen Delivery Method Room Air Room Air Room Air Lab Data Labs: Lab Results 02/16/24 13:30: WBC 10.4, RBC 4.62, Hgb 14.3, Hct 44.9, MCV 97.2 H, MCH 30.9, MCHC 31.8, RDW 14.5, Plt Count 274, MPV 8.9, Neut % (Auto) 79.9, Lymph % (Auto) 11.4, [place] % (Auto) 3.7, Eos % (Auto) 4.2, Baso % (Auto) 0.8, Neut # (Auto) 8.3 H, Lymph # (Auto) 1.2, [place] # (Auto) 0.4, Eos # (Auto) 0.4, Baso # (Auto) 0.1, Sodium 137, Potassium 4.1, Chloride 100, Carbon Dioxide 30, Anion Gap 11.1, BUN 16, Creatinine 1.40 H, Estimated Creat Clear 65, Estimated GFR 50 L, Est GFR ( Amer) 61, Glucose 108 H, Calcium 9.8, Total Bilirubin 0.8, AST 34, ALT 28, Alkaline Phosphatase 111, Troponin I < 0.01, NT-Pro-B Natriuret Pep 301 H, Total Protein 8.2, Albumin 4.7, Globulin 3.5 H, Albumin/Globulin Ratio 1.3 02/16/24 14:17: SARS-CoV-2 (PCR) Not detected, Influenza A Untype (PCR) Not detected, Influenza Type B (PCR) Not detected 02/16/24 15:25: Troponin I < 0.01 02/16/24 13:30 02/16/24 13:30 Response Orders (Tests/Meds): ED MEDICATIONS Generic Name Dose Route Start Last Admin Trade Name Freq PRN Reason Stop Dose Admin Sodium Chloride 10 ml 02/16/24 14:00 Sodium Chloride 0.9% 10ml Flush Syringe IV 03/17/24 13:59 NEEDED PRN Maintain IV Site Discontinued Medications Generic Name Dose Route Start Last Admin Trade Name Freq PRN Reason Stop Dose Admin Albuterol/Ipratropium 3 ml 02/16/24 14:13 02/16/24 14:32 Ipratropium/Albuterol 3 Ml Neb IH 02/16/24 14:14 3 ml ONCE ONE Administration Methylprednisolone Sodium Succinate 125 mg 02/16/24 14:13 02/16/24 14:31 Methylprednisolone Sod Succ 125mg Vial IV 02/16/24 14:14 125 mg ONCE ONE Administration ORDERS Category Date Time Status CXR 2 view (NOT portable) [XR chest 2V] Stat Exams 02/16/24 13:58 Taken BNP [Brain Natriuretic Peptide] Stat Lab 02/16/24 13:30 Completed Complete Blood Count Auto Diff Stat Lab 02/16/24 13:30 Completed Comprehensive Metabolic Panel Stat Lab 02/16/24 13:30 Completed Rapid PCR Covid and Flu A/B Stat Lab 02/16/24 14:17 Completed Troponin I Q3H Lab 02/16/24 15:25 Completed Troponin I Q3H Lab 02/16/24 20:00 Ordered Troponin I Stat Lab 02/16/24 13:30 Completed ECG Data Tracing #1: Attestation: I reviewed this ECG and interpreted as documented below: ECG Narrative: Sinus bradycardia with a ventricular rate of [address] changes concerning for ischemia. Nonspecific ST/T wave abnormality. ECG initial impression date: 02/16/24 ECG initial impression time: 13:37 MDM Narrative Medical Decision Narrative: In summary, this patient is a 68-year-old male presenting to the Emergency Department for evaluation of chest pressure, generalized fatigue, and chills since Friday. Differential diagnoses considered include but are not limited to viral syndrome, COPD exacerbation, bronchitis, pneumonia, ACS, dysrhythmia, GERD. Ruling out the most morbid conditions drove assessment. On exam, the patient is resting comfortably with normal vital signs and cardiac telemetry. He has bilateral wheezing and rhonchi. No hypoxia or tachycardia to suggest PE or other concerns. Workup included CBC, CMP, troponin, chest x-ray, viral swab, and EKG. Favor COPD exacerbation at this time based on symptoms. Patient was given DuoNeb as well as methylprednisolone to assess for symptomatic improvement. EKG does not demonstrate any acute ST changes concerning for ischemia, but has nonspecific changes. I independently interpreted extremity prior to the radiologist read and noted no consolidation, pneumothorax, or other concerns. Please see their read for final interpretation. Labs were obtained that demonstrated negative initial troponin and no other acutely concerning abnormalities. I feel the patient most likely has COPD exacerbation as a cause of the symptoms in the setting of probable upper respiratory infection. At 1445, patient was placed in ED observation status pending second troponin to determine whether or not the patient would be appropriate for discharge versus admission. The patient was provided serial reevaluations and cardiac monitoring while awaiting ultimate disposition. Patient care signed out to the oncoming provider, Dr. Palacios. <Antonio Palacios MD - Last Filed: 02/16/24 16:39> Vital Signs Vital Signs: 02/16/24 13:30 02/16/24 14:25 02/16/24 14:30 Temperature 98.3 F Temperature Source Oral Pulse Rate 56 L 55 L Pulse Rate [Right] 59 L Respiratory Rate 18 Blood Pressure 150/88 H 156/82 H Blood Pressure [Right Arm] 167/91 H Blood Pressure Mean [Right Arm] 116 Blood Pressure Source [Right Arm] Automatic Cuff 02 Sat by Pulse Oximetry 99 97 99 Oxygen Delivery Method Room Air Room Air Room Air 02/16/24 15:00 02/16/24 15:30 02/16/24 16:00 Temperature Temperature Source Pulse Rate 59 L 59 L 58 L Pulse Rate [Right] Respiratory Rate Blood Pressure 167/89 H 162/93 H 156/93 H Blood Pressure [Right Arm] Blood Pressure Mean [Right Arm] Blood Pressure Source [Right Arm] 02 Sat by Pulse Oximetry 98 99 94 L Oxygen Delivery Method Room Air Room Air Room Air Lab Data Labs: Lab Results 02/16/24 13:30: WBC 10.4, RBC 4.62, Hgb 14.3, Hct 44.9, MCV 97.2 H, MCH 30.9, MCHC 31.8, RDW 14.5, Plt Count 274, MPV 8.9, Neut % (Auto) 79.9, Lymph % (Auto) 11.4, [place] % (Auto) 3.7, Eos % (Auto) 4.2, Baso % (Auto) 0.8, Neut # (Auto) 8.3 H, Lymph # (Auto) 1.2, [place] # (Auto) 0.4, Eos # (Auto) 0.4, Baso # (Auto) 0.1, Sodium 137, Potassium 4.1, Chloride 100, Carbon Dioxide 30, Anion Gap 11.1, BUN 16, Creatinine 1.40 H, Estimated Creat Clear 65, Estimated GFR 50 L, Est GFR ( Amer) 61, Glucose 108 H, Calcium 9.8, Total Bilirubin 0.8, AST 34, ALT 28, Alkaline Phosphatase 111, Troponin I < 0.01, NT-Pro-B Natriuret Pep 301 H, Total Protein 8.2, Albumin 4.7, Globulin 3.5 H, Albumin/Globulin Ratio 1.3 02/16/24 14:17: SARS-CoV-2 (PCR) Not detected, Influenza A Untype (PCR) Not detected, Influenza Type B (PCR) Not detected 02/16/24 15:25: Troponin I < 0.01 Response Orders (Tests/Meds): ED MEDICATIONS Generic Name Dose Route Start Last Admin Trade Name Freq PRN Reason Stop Dose Admin Sodium Chloride 10 ml 02/16/24 14:00 Sodium Chloride 0.9% 10ml Flush Syringe IV 03/17/24 13:59 NEEDED PRN Maintain IV Site Discontinued Medications Generic Name Dose Route Start Last Admin Trade Name Freq PRN Reason Stop Dose Admin Albuterol/Ipratropium 3 ml 02/16/24 14:13 02/16/24 14:32 Ipratropium/Albuterol 3 Ml Neb IH 02/16/24 14:14 3 ml ONCE ONE Administration Methylprednisolone Sodium Succinate 125 mg 02/16/24 14:13 03/25/24 14:31 Methylprednisolone Sod Succ 125mg Vial IV 02/16/24 14:14 125 mg ONCE ONE Administration ORDERS Category Date Time Status CXR 2 view (NOT portable) [XR chest 2V] Stat Exams 02/16/24 13:58 Taken BNP [Brain Natriuretic Peptide] Stat Lab 02/16/24 13:30 Completed Complete Blood Count Auto Diff Stat Lab 02/16/24 13:30 Completed Comprehensive Metabolic Panel Stat Lab 02/16/24 13:30 Completed Rapid PCR Covid and Flu A/B Stat Lab 02/16/24 14:17 Completed Troponin I Q3H Lab 02/16/24 15:25 Completed Troponin I Q3H Lab 02/16/24 20:00 Ordered Troponin I Stat Lab 02/16/24 13:30 Completed MDM Narrative Medical Decision Narrative: In summary, this patient is a 68-year-old male presenting to the Emergency Department for evaluation of chest pressure, generalized fatigue, and chills since Friday. Differential diagnoses considered include but are not limited to viral syndrome, COPD exacerbation, bronchitis, pneumonia, ACS, dysrhythmia, GERD. Ruling out the most morbid conditions drove assessment. On exam, the patient is resting comfortably with normal vital signs and cardiac telemetry. He has bilateral wheezing and rhonchi. No hypoxia or tachycardia to suggest PE or other concerns. Workup included CBC, CMP, troponin, chest x-ray, viral swab, and EKG. Favor COPD exacerbation at this time based on symptoms. Patient was given DuoNeb as well as methylprednisolone to assess for symptomatic improvement. EKG does not demonstrate any acute ST changes concerning for ischemia, but has nonspecific changes. I independently interpreted extremity prior to the radiologist read and noted no consolidation, pneumothorax, or other concerns. Please see their read for final interpretation. Labs were obtained that demonstrated negative initial troponin and no other acutely concerning abnormalities. I feel the patient most likely has COPD exacerbation as a cause of the symptoms in the setting of probable upper respiratory infection. At 1445, patient was placed in ED observation status pending second troponin to determine whether or not the patient would be appropriate for discharge versus admission. The patient was provided serial reevaluations and cardiac monitoring while awaiting ultimate disposition. Patient care signed out to the oncoming provider, Dr. Palacios. Antonio Palacios: Upon assumption of care patient was hemodynamically stable. On repeat evaluation patient is largely clear to auscultation status post breathing treatment. Hematologic labs reviewed by me and are nonactionable, serial troponins are flat, stable CKD. Patient has history of chronic smoking and cough he does have presumed bronchitis however will be treated empirically for COPD exacerbation with doxycycline, steroids, metered-dose inhaler. Patient was given return precautions and is appropriate for discharge at this time.
[2024-02-16 14:49] LABS: Coronavirus 19, PCR Not Detected (NotDetected); Influenza A, PCR Not Detected (NotDetected); Influenza B, PCR Not Detected (NotDetected)
[2024-02-16 14:54] LABS: NT Pro Brain Natriuretic Pep. 301 pg/mL (0-125)
[2024-02-16 16:09] LABS: Troponin I < 0.01 ng/ml (0.00-0.034)
== END 2024-02-16 16:55 | disposition home or self-care (01) ==
PROVIDERS: Emergency Medicine; Emergency Provider Emergency Medicine; PCP Internal Medicine Adolescent Medicine
DX: R07.9 Chest pain, unspecified (principal); J44.1 Chronic obstructive pulmonary disease with (acute) exacerbation; R00.1 Bradycardia, unspecified; F17.210 Nicotine dependence, cigarettes, uncomplicated; I10 Essential (primary) hypertension; E78.5 Hyperlipidemia, unspecified; E11.9 Type 2 diabetes mellitus without complications; Z79.84 Long term (current) use of oral hypoglycemic drugs
CPT/HCPCS: 71046; 80053; 83880; 84484; 85025; 87636; 93005; 96374; 99284

== ENCOUNTER 2024-03-24 08:51 | Outpatient (CLI) | payer MEDICARE, OTHER, SELFPAY ==
--- NOTE | 2024-03-24 08:54 | CT_ITS ---
FINAL REPORT TECHNIQUE: Axial CT images of the chest were obtained without contrast. Low-dose protocol was utilized. This study was performed with techniques to keep radiation doses as low as reasonably achievable (ALARA). Individualized dose reduction techniques using automated exposure control or adjustment of mA and/or kV according to the patient's size were employed. CLINICAL HISTORY: smoker, 1 ppd x 20+ years COMPARISON: 08/30/2022 FINDINGS: CT CHEST WITHOUT, LOW DOSE SCREENING CT Di Vol: 2.90 mGy DLP: 101.34 mGy*cm There is no axillary, mediastinal, or hilar adenopathy. The heart size is normal. There is no pleural or pericardial effusion. The lung windows show a stable 4 mm left lower lobe nodule best seen on image 42. There is a 3 mm nodule in the superior segment of the left lower lobe best seen on image 20 which is unchanged from prior. There are 2 mm peripheral nodules in the right upper lobe best seen on MIP image 17 which are also unchanged. Limited images of the upper abdomen demonstrate no acute findings. IMPRESSION: No suspicious pulmonary nodules. LR Category 2: 12 month follow-up low-dose chest CT is recommended. Reviewed, Interpreted and Dictated by Radha Cobian MD Transcribed by Christelle Herrera Authenticated and [facility]
== END 2024-03-24 23:59 | disposition home or self-care (01) ==
LOC: RAD 08:51
PROVIDERS: PCP Internal Medicine Adolescent Medicine; Visit Provider Internal Medicine Adolescent Medicine
DX: Z87.891 Personal history of nicotine dependence (principal); Z12.2 Encounter for screening for malignant neoplasm of respiratory organs
CPT/HCPCS: 71271

== ENCOUNTER 2024-04-27 09:45 | Day surgery (SDC) | payer MEDICARE, OTHER, SELFPAY ==
--- NOTE | 2024-04-27 10:14 | P.PCN_ITS ---
Procedure Date: 04/27/24 Time: 10:00 Anesthesiologist:: Ricci Hurt CRNA Complications:: None Pre-procedure Diagnosis:: Degenerative disc lumbar spine multilevels. Lumbar radiculopathy. DJD right shoulder. Chronic right shoulder pain. Lumbar postlaminectomy syndrome. Post-procedure Diagnosis:: Same. Indications for Procedure:: Patient is a very pleasant 68-year-old male that comes our clinic today for intrathecal pain pump interrogation and refill. He is currently being managed w ith morphine sulfate 1 mg/mL at a rate of 0.1331 mg/day. He is doing very well with his current settings. He is not requesting any changes. He does not report any side effects or complications with intrathecal pain pump management. Procedure Details:: Details of the procedure explained to the patient. The patient taken the procedure room placed in sitting position. The over the pump was cleaned using chlorhexidine's cleansing solution. The pump was interrogated. The pump was accessed with ease using a 22-gauge inch and half needle. 7.5 mL of solution was withdrawn and discarded appropriately. The pump was then filled with 20 cc of solution containing morphine sulfate 1 mg/mL. The rate will continue at 0.1331 mg/day. Patient tolerated procedure without difficulty. No complications. Plan and Disposition:: Patient was discharged without incident.
[2024-04-27 10:16] VITALS: BP 124/70; PULSE 63; RESP 18; TEMP 36.3; O2SAT 63; BMI 25.4
[2024-04-27 10:22] VITALS: BP 124/74; PULSE 56; RESP 18; O2SAT 98
[2024-04-27 13:04] LABS: Amphetamine/Metha Screen,Urine Negative ng/ml (<1000); Barbiturates Screen,Urine Negative ng/ml (<200)
[2024-04-27 13:05] LABS: Benzodiazepines Screen,Urine Positive ng/ml (<200)
[2024-04-27 13:06] LABS: Cannabinoid Screen,Urine Negative ng/ml (<50); Cocaine Screen,Urine Negative ng/ml (<300)
[2024-04-27 13:07] LABS: Methadone Screen,Urine Negative ng/ml (<300)
[2024-04-27 13:08] LABS: Opiate Screen,Urine Negative ng/ml (<300); Phencyclidine Screen,Urine Negative ng/ml (<25)
[2024-05-04 09:15] LABS: Opiates Negative (Cutoff=100)
== END 2024-04-27 10:23 | disposition home or self-care (01) ==
PROVIDERS: Anesthesiology; PCP Internal Medicine Adolescent Medicine; Visit Provider Nurse Anesthetist, Certified Registered
DX: M51.16 Intervertebral disc disorders with radiculopathy, lumbar region (principal); M19.011 Primary osteoarthritis, right shoulder; M25.511 Pain in right shoulder; G89.29 Other chronic pain; M96.1 Postlaminectomy syndrome, not elsewhere classified; Z97.8 Presence of other specified devices; Z45.1 Encounter for adjustment and management of infusion pump
CPT/HCPCS: 80307; 80361; 80365; 95991; G0480

== ENCOUNTER 2024-04-29 21:05 | Observation (INO) | payer MEDICARE, OTHER, SELFPAY ==
[2024-04-29 21:06] VITALS: BP 157/103; PULSE 73; RESP 18; TEMP 37.1; O2SAT 96; BMI 25.4
--- NOTE | 2024-04-29 21:09 | ED_ITS ---
<Statement entered by Cindy Diallo DO - 04/29/24 23:47> I was consulted by the DEN, and we discussed the complexity of the problems being addressed. I approved the treatment and management plan for this patient's care in the emergency department, thus performing a substantive portion of the medical decision making. I performed bedside DVT ultrasound of the right lower extremity. I performed bedside cardiac ultrasound to evaluate for right heart strain, as I independently interpreted CTA of the chest prior to radiology read and noted patient has a proximal PE. DVT procedure note: Limited DVT ultrasound Indication: Limited compression ultrasonography of the right lower extremity was performed to evaluate for non-compressibility of the deep veins in the patient. The ultrasound was performed with the following indications, as noted in the H&P: Right leg pain, swelling, and redness Identified structures: Right common femoral vein, femoral vein, popliteal vein were examined. Findings: Lower Extremity: Right CFV: Noncompressible Right FV: Noncompressible Right Popliteal vein: Noncompressible Impression: Right lower extremity DVT Images were saved to permanent archive The study was technically adequate CPT: 71437-72-KD This study was performed by me, and I personally interpreted all images/videos. Based on my clinical judgement, these images were adequate and did not necessitate further imaging. Cardiac ultrasound procedure note: Limited cardiac ultrasound Indication: DVT and PE found; evaluation for right heart strain Identified cardiac views: -Cardiac parasternal long axis -Cardiac parasternal short axis -Cardiac apical four-chamber Findings: -Cardiac activity present -Gross wall motion normal -Pericardial effusion absent -Right heart strain absent Impression: -From above Images were saved to permanent archive The study was technically adequate CPT: 97448 This study was performed by nc, and I personally interpreted all images/videos. Based on my clinical judgement, these images were adequate and did not necessitate further imaging. Ultimately given that the patient has extensive clot burden in his right lower extremity as well as right proximal PEs, though without heart strain, as well as his inability to ambulate given his right lower extremity pain and swelling, I feel he would benefit from admission. He was started on therapeutic Lovenox. I had an interactive discussion with the hospitalist who admitted the patient for further evaluation and management. Cindy Diallo DO Discharge Plan Disposition Patient Disposition: Admitted Condition: Good Prescriptions Prescriptions: No Action omeprazole 20 mg capsule,delayed release(DR/EC) 20 mg PO DAILY 90 Days Patient Comments: prednisone 5 mg tablet 5 mg PO DAILY 90 Days Patient Comments: atorvastatin 80 mg tablet 80 mg PO DAILY 90 Days Patient Comments: glucosamine [id number] 500-250-400 mg tablet 500 tab PO DAILY venlafaxine 75 mg capsule,extended release 24hr 75 mg PO DAILY metformin 500 mg tablet 500 mg PO BID Qty: 0 linaclotide 145 mcg capsule 145 mcg PO DAILY Qty: 0 tamsulosin 0.4 mg capsule 0.4 mg PO DAILY Qty: 0 Humira 40 mg/0.8 mL syringe kit 40 mg SQ QWEEK verapamil 240 mg tablet extended release 240 mg PO DAILY erythromycin with ethanol 2 % gel 1 applic topical BID acetaminophen [Tylenol] 325 mg Tablet 1,000 mg PO DAILY PRN (Reason: Pain) diazepam 2 MG tablet 2 mg PO HS losartan 100 MG tablet 100 mg PO DAILY cholecalciferol (vitamin D3) 1,250 MCG capsule 5,000 unit PO DAILY diclofenac sodium 20 GM gel 20 g TP QID mupirocin 30 GM ointment 1 applic TP BID Rx Instructions: apply twice daily to right hallux wound. prednisone 50 mg tablet 50 mg PO DAILY 5 Days Qty: 5 0RF doxycycline hyclate 100 mg tablet 100 mg PO BID 7 Days Qty: 14 0RF albuterol sulfate 90 mcg/actuation HFA aerosol inhaler 3 inh inhalation Q4H PRN (Reason: shortness of breath or wheezing) Qty: 6.7 0RF Referrals Follow up/Referrals: Rick Barton MD [Primary Care Provider] - See instructions Clinical Impressions Clinical Impression: Deep vein thrombosis (DVT) of proximal vein of right lower extremity Pulmonary emboli Qualifiers: Chronicity: acute Discharge ED Provider: Jonnie Coyne General Adult HPI General Chief complaint: Extremity Injury, Lower Stated complaint: RT leg pain Time Seen by Provider: 04/29/24 21:09 History of Present Illness HPI narrative: Patient presents for evaluation of right lower extremity pain. Patient reports right lower extremity pain posteriorly starting at the knee and to the posterior calf. He denies any known trauma but did help move an upright freezer on Friday. Patient states is very painful to bear weight and the only position of comfort is with his leg fully extended. He denies chest pain shortness of breath fever chills hemoptysis hematochezia melena nausea vomiting diarrhea. He is not on any anticoagulants. Related Data Home Medications Medication Instructions Recorded Confirmed atorvastatin 80 mg tablet 80 mg PO DAILY Cholesterol 90 days 01/06/18 11/11/23 glucosamine sulfate 500 tab PO DAILY Arthritis 01/06/18 11/11/23 [id number] 500 mg-250 mg-400 mg tablet omeprazole 20 mg capsule,delayed 20 mg PO DAILY stomach 90 days 01/06/18 11/11/23 release prednisone 5 mg tablet 5 mg PO DAILY . 90 days 01/06/18 11/11/23 adalimumab 40 mg/0.8 mL 40 mg SQ QWEEK . 11/04/19 11/11/23 subcutaneous syringe kit (Humira) linaclotide 145 mcg capsule 145 mcg PO DAILY . #0 caps 11/04/19 11/11/23 metformin 500 mg tablet 500 mg PO BID Diabetes #0 tabs 11/04/19 11/11/23 tamsulosin 0.4 mg capsule 0.4 mg PO DAILY prostrate #0 caps 11/04/19 11/11/23 venlafaxine 75 mg capsule,extended 75 mg PO DAILY mood 02/28/21 11/11/23 release 24 hr verapamil 240 mg tablet,extended 240 mg PO DAILY Hypertension 05/31/21 11/11/23 release diazepam 2 mg tablet 2 mg PO HS sleep 10/02/21 11/11/23 cholecalciferol (vitamin D3) 1,250 5,000 unit PO DAILY Supplement 02/04/22 11/11/23 mcg (50,000 unit) capsule diclofenac sodium 1 % topical gel 20 g topical QID Arthritis 02/04/22 11/11/23 losartan 100 mg tablet 100 mg PO DAILY Hypertension 02/04/22 11/11/23 mupirocin 2 % topical ointment 1 applic topical BID Infection 02/22/22 11/11/23 acetaminophen 325 mg tablet 1,000 mg PO DAILY PRN Pain 09/20/22 11/11/23 (Tylenol) erythromycin with ethanol 2 % 1 applic topical BID . 09/20/22 11/11/23 topical gel Previous Rx's Medication Instructions Recorded albuterol sulfate 90 mcg/actuation 3 inh inhalation Q4H PRN shortness 02/16/24 aerosol inhaler of breath or wheezing #6.7 grams doxycycline hyclate 100 mg tablet 100 mg PO BID 7 days #14 tabs 02/16/24 prednisone 50 mg tablet 50 mg PO DAILY 5 days #5 tabs 02/16/24 Allergies Allergy/AdvReac Type Severity Reaction Status Date / Time No Known Allergies Allergy Verified 07/15/23 12:10 [facility] Disclaimer: The information contained in this section may have been updated after the patient was seen, as this information can be updated by other users. Medical History Kidney stone History of arthritis Hyperlipemia Hypertension Diabetes Degenerative disc disease Surgical History History of surgery History of lumbar fusion History of appendectomy History of cholecystectomy Family History Other Family history of stroke Social History Smoking Status: Current every day smoker tobacco type: cigarettes packs per day: 1 second hand exposure: No alcohol intake: never substance use type: denies use current occupational status: retired Travel in the last 8 weeks: None household members: spouse housing: house current occupational exposures/hazards: No caffeine: Yes ROS Obtained: Yes Systems reviewed as appropriate & no additional complaints except as documented Physical Exam General General appearance: alert and in no apparent distress Respiratory Respiratory exam: Present normal lung sounds bilaterally Cardiovascular Cardiovascular exam: Present regular rate and normal rhythm Expanded Lower Extremity Exam Right: Knee exam: Present tenderness (Patient is tender to palpation in the posterior popliteal fossa.), swelling, pain with valgus, pain with varus and knee extension intact; Absent full ROM, ecchymosis, deformity, dislocation, anterior drawer sign or posterior draw sign Lower leg exam: Present Homans' sign and Achilles tendon intact; Absent normal inspection (Patient has nonpitting edema in comparison to the left. Patient has chronic skin changes but no acute injuries noted.) or palpable cord Foot/toe exam: Present normal inspection and full ROM; Absent tenderness or swelling Neurological Exam Neurological exam: Present alert and oriented X3 Medical Decision Making Medical Records Medical records reviewed: Yes I reviewed the patient's medical records. [place] Inquiry Pt receiving controlled substance: No Vital Signs: 04/29/24 21:06 04/29/24 22:10 04/29/24 23:02 Temperature 98.7 F 98.7 F 98.7 F Temperature Source Oral Oral Oral Pulse Rate 59 L 60 Pulse Rate [Left] 73 Respiratory Rate 18 16 16 Blood Pressure 139/76 121/75 Blood Pressure [Right Arm] 157/103 H Blood Pressure Mean [Right Arm] 121 Blood Pressure Source Automatic Cuff Automatic Cuff Blood Pressure Source [Right Arm] Automatic Cuff Blood Pressure Position Supine Supine Blood Pressure Position [Right Arm] Supine 02 Sat by Pulse Oximetry 96 98 97 Oxygen Delivery Method Room Air Room Air Room Air Lab Data Lab results reviewed: Yes I reviewed the patient's lab results. Lab Results 04/29/24 21:30: WBC 10.6, RBC 3.87 L, Hgb 11.7 L, Hct 37.0 L, MCV 95.5 H, MCH 30.2, MCHC 31.6 L, RDW 15.9, Plt Count 207, MPV 8.8, Neut % (Auto) 82.1 H, Lymph % (Auto) 10.9, Armstrong % (Auto) 5.1, Eos % (Auto) 1.7, Baso % (Auto) 0.2, Neut # (Auto) 8.7 H, Lymph # (Auto) 1.2, Armstrong # (Auto) 0.5, Eos # (Auto) 0.2, Baso # (Auto) 0.0, ESR 83 H, PT 11.4, INR 1.06, APTT 27.6, D-Dimer 1.66 H, Sodium 138, Potassium 4.3, Chloride 106, Carbon Dioxide 24, Anion Gap 12.3, BUN 17, C reatinine 1.40 H, Estimated Creat Clear 59, Estimated GFR 50 L, Est GFR ( Amer) 61, Glucose 98, Calcium 9.3, Total Bilirubin 0.9, AST 23, ALT 16, Alkaline Phosphatase 89, Total Creatine Kinase 44 L, Troponin I < 0.01, C-Reactive Protein 104.4 H, Total Protein 6.8, Albumin 3.6, Globulin 3.2, Albumin/Globulin Ratio 1.1 04/29/24 21:30 04/29/24 21:30 Orders (Tests/Meds): ED MEDICATIONS Generic Name Dose Route Start Last Admin Trade Name Freq PRN Reason Stop Dose Admin Enoxaparin Sodium 85 mg 04/29/24 23:15 04/29/24 23:18 Enoxaparin 100mg/Ml Syringe 1 mg/kg (85 mg) 05/29/24 23:14 85 mg SQ Administration Q12H NEYMAR Sodium Chloride 10 ml 04/29/24 22:46 04/29/24 22:47 Sodium Chloride 0.9% 10ml Syr (Rad Only) IV 05/29/24 22:45 10 ml NEEDED PRN Administration Maintain IV Site Discontinued Medications Generic Name Dose Route Start Last Admin Trade Name Melany PRN Reason Stop Dose Admin Acetaminophen 1,000 mg 04/29/24 21:16 04/29/24 21:35 Acetaminophen 1,000mg/100ml Vial IV 04/29/24 21:17 1,000 mg ONCE ONE Administration Iopamidol 145 ml 04/29/24 22:46 04/29/24 22:47 Iopamidol-370 (76%);100ml Bottle IV 04/29/24 22:47 145 ml ONCE ONE Administration Ketorolac Tromethamine 15 mg 04/29/24 21:16 04/29/24 21:34 Ketorolac 30mg/Ml Vial IV 04/29/24 21:17 15 mg ONCE ONE Administration Oxycodone HCl 5 mg 04/29/24 21:16 04/29/24 21:34 Oxycodone 5mg Immediate Release Tablet PO 04/29/24 21:17 5 mg ONCE ONE Administration Sodium Chloride 50 ml 04/29/24 22:46 04/29/24 22:47 0.9 % Sodium Chloride 50 Ml Vial IV 04/29/24 22:47 50 ml ONCE ONE Administration ORDERS Category Date Time Status CT abdomen pelvis w con Stat Cat Scan 04/29/24 21:[address] angio chest PE protocol Stat Cat Scan 04/29/24 21:[address] femur RT w con Stat Cat Scan 04/29/24 21:50 Completed Knee XR right 3 views [XR knee RT 3V] Stat Exams 04/29/24 21:18 Completed POCUS Point of Care (ER Only) Stat Exams 04/29/24 21:38 Completed POCUS Point of Care (ER Only) Stat Exams 04/29/24 22:43 Completed CBC w/Auto Diff [Complete Blood Count Auto Diff] Stat Lab 04/29/24 21:30 Completed CK [Creatine Kinase] Stat Lab 04/29/24 21:30 Completed CMP [Comprehensive Metabolic Panel] Stat Lab 04/29/24 21:30 Completed CRP [C-Reactive Protein] Stat Lab 04/29/24 21:30 Completed D-Dimer Stat Lab 04/29/24 21:30 Completed ESR [Erythrocyte Sedimentation Rate] Stat Lab 04/29/24 21:30 Completed INR [Prothrombin Time INR] Stat Lab 04/29/24 21:30 Completed PTT [Activated Partial Thrombo Time] Stat Lab 04/29/24 21:30 Completed Trop I [Troponin I] Stat Lab 04/29/24 21:30 Completed Troponin I Q3H Lab 04/30/24 01:45 Ordered Troponin I Q3H Lab 04/30/24 04:45 Ordered Medical Decision Narrative: In summary patient is a 68-year-old male who presents to the emergency department for evaluation of right lower extremity pain. Patient is dynamically stable upon arrival, afebrile. Physical exam is remarkable for popliteal tenderness and fullness, pain with range of motion of the knee, tenderness to palpation in the posterior calf from knee to ankle without a palpable cord, positive Homans' sign, and patient does have positive DP PT in the right foot. Differential diagnosis includes muscle strain versus ligamentous tear versus occult fracture versus joint effusion versus DVT versus gastrocnemius strain etc. Initial workup will be conducted with hematologic labs plain film x-ray. Initial interventions include Toradol Tylenol and oxycodone. Initial workup reviewed by me shows that he has an elevated D-dimer, creatinine is at his baseline of 1.4, CK is 44, CRP is elevated at 104 and [id number] ultrasound shows clot out of the range of the ultrasound. We have broadened his workup CTA PE protocol and CT of his lower extremity CT abdomen pelvis. We are writing formal reads at the time of handoff to Dr. Coyne at 2300 hrs. Critical Care Critical Care Time Critical Care Time: No
--- NOTE | 2024-04-29 21:18 | XR_ITS ---
PROCEDURE INFORMATION: Exam: XR Right Knee Exam date and time: 04/29/2024 9:21 PM Age: 68 years old Clinical indication: Pain; Knee; Right; Additional info: Acute pain TECHNIQUE: Imaging protocol: Radiologic exam of the right knee. Views: 3 views. COMPARISON: No relevant prior studies available. FINDINGS: Bones/joints: Large marginal osteophytes and significant degenerative changes involving the patellofemoral, medial, and lateral compartments of the right knee. No evidence of acute osseous abnormality. Intermediate sized enthesophytes involving the patella. Soft tissues: Normal. IMPRESSION: 1. Large marginal osteophytes and significant degenerative changes involving the patellofemoral, medial, and lateral compartments of the right knee. 2. No evidence of acute osseous abnormality.
[2024-04-29] MEDS: OXYCODONE 5MG IMMEDIATE RELEASE TABLET 5 MG PO (21:34)
[2024-04-29] MEDS: KETOROLAC 30MG/ML VIAL 15 MG IV (21:34)
[2024-04-29] MEDS: ACETAMINOPHEN 1,000MG/100ML VIAL 1000 MG IV (21:35)
[2024-04-29 21:47] LABS: Basophils % 0.2 % (0.1-2.0); Eosinophils # 0.2 K/mm3 (0.0-0.4); Eosinophils % 1.7 % (0.1-12.0); Hemoglobin 11.7 g/dL (14.1-18.0); Lymphocytes # 1.2 K/mm3 (0.7-4.5); Lymphocytes % 10.9 % (10-50); Mean Corpuscular HGB Conc 31.6 g/dL (31.8-35.4); Mean Corpuscular Hemoglobin 30.2 pg (27.0-31.2); Mean Corpuscular Volume 95.5 fl (80-94); Mean Platelet Volume 8.8 fl (7.4-10.4); Monocytes # 0.5 K/mm3 (0.1-1.0); Monocytes % 5.1 % (1.7-9.3); Neutrophils # 8.7 K/mm3 (1.8-7.8); Neutrophils % 82.1 % (37.0-80.0); Platelet Count 207 K/mm3 (142-424); Red Blood Count 3.87 M/mm3 (4.60-6.20); Red Cell Distribution Width 15.9 % (11.5-17.5); White Blood Count 10.6 K/mm3 (4.8-10.8)
--- NOTE | 2024-04-29 21:47 | CT_ITS ---
PROCEDURE INFORMATION: Exam: CTA Chest With Contrast Exam date and time: 04/29/2024 10:22 PM Age: 68 years old Clinical indication: Other: New dvt TECHNIQUE: Imaging protocol: Computed tomographic angiography of the chest with contrast. Exam focused on the arteries. 3D rendering (Not supervised by radiologist): MIP and/or 3D reconstructed images were created by the technologist. Radiation optimization: All CT scans at this facility use at least one of these dose optimization techniques: automated exposure control; mA and/or kV adjustment per patient size (includes targeted exams where dose is matched to clinical indication); or iterative reconstruction. Contrast material: ISOVUE 370; Contrast volume: 70 ml; Contrast route: INTRAVENOUS (IV); COMPARISON: CT LUNG SCREENING 03/24/2024 8:56 AM FINDINGS: Pulmonary arteries: Small branching filling defect at the bifurcation of the right main pulmonary artery compatible with acute pulmonary embolus. A 2nd small filling defect noted within right lower lobe segmental branch on series 8, images 66-C7. No other evidence of pulmonary embolus. Aorta: Unremarkable. No aortic aneurysm. No aortic dissection. Lungs: A few scattered small calcified granulomas noted in both lungs. No active pulmonary infiltrate. No suspicious pulmonary nodules or masses. Pleural spaces: Unremarkable. No pneumothorax. No pleural effusion. Heart: Unremarkable. No cardiomegaly. No pericardial effusion. Heart RV/LV ratio: RV/LV ratio is 0.9. Lymph nodes: Unremarkable. No enlarged lymph nodes. Bones/joints: Accentuated thoracic kyphosis with diffuse anterior syndesmophyte formation throughout the thoracic spine. No vertebral body compression or acute fracture. Severe degenerative changes both shoulders. Soft tissues: Unremarkable. IMPRESSION: Small pulmonary emboli at the bifurcation of the right main pulmonary artery and within a segmental branch of the right lower pulmonary artery. No evidence of right heart strain.
--- NOTE | 2024-04-29 21:47 | CT_ITS ---
PROCEDURE INFORMATION: Exam: CT Abdomen And Pelvis With Contrast Exam date and time: 04/29/2024 10:22 PM Age: 68 years old Clinical indication: Pain; Other: RT lower ext. New dvt; Additional info: Dvt extending to common fem on rle US TECHNIQUE: Imaging protocol: Computed tomography of the abdomen and pelvis with contrast. Radiation optimization: All CT scans at this facility use at least one of these dose optimization techniques: automated exposure control; mA and/or kV adjustment per patient size (includes targeted exams where dose is matched to clinical indication); or iterative reconstruction. Contrast material: ISOVUE; Contrast volume: 70 ml; Contrast route: IV; COMPARISON: CT ANGIO ABDOMEN 09/05/2022 7:26 AM FINDINGS: Liver: 2.4 cm irregular hypodense lesion in the dome of the liver corresponds to an area moderate enhancement on the prior study, favored to represent a small hemangioma. Liver is otherwise unremarkable. Gallbladder and bile ducts: Gallbladder is surgically absent. No significant biliary ductal dilation. Pancreas: Normal. No ductal dilation. Spleen: Normal. No splenomegaly. Adrenal glands: Normal. No mass. Kidneys and ureters: Normal. No hydronephrosis. Stomach and bowel: Unremarkable. No obstruction. No mucosal thickening. Appendix: No evidence of appendicitis. Intraperitoneal space: Unremarkable. No free air. No significant fluid collection. Vasculature: Moderate atherosclerotic calcification throughout the aorta and iliac arteries. No evidence of aneurysm or dissection. Lymph nodes: Unremarkable. No enlarged lymph nodes. Urinary bladder: Unremarkable as visualized. Reproductive: Unremarkable as visualized. Bones/joints: Moderate degenerative changes throughout the lumbar spine. No vertebral body compression or acute fracture. Moderate degenerative changes of the bony pelvis. Soft tissues: Unremarkable. IMPRESSION: No acute abnormality. Chronic findings as noted.
--- NOTE | 2024-04-29 21:50 | CT_ITS ---
PROCEDURE INFORMATION: Exam: CT Right Lower Extremity With Contrast; Thigh Exam date and time: 04/29/2024 10:22 PM Age: 68 years old Clinical indication: Pain; Lower leg; Right; Additional info: Eval proximal dvt TECHNIQUE: Imaging protocol: CT of the right lower extremity with intravenous contrast was performed. Exam focused on the thigh. Radiation optimization: All CT scans at this facility use at least one of these dose optimization techniques: automated exposure control; mA and/or kV adjustment per patient size (includes targeted exams where dose is matched to clinical indication); or iterative reconstruction. Contrast material: ISOVUE; Contrast volume: 75 ml; Contrast route: IV; COMPARISON: CT ABDOMEN PELVIS W CON 04/29/2024 10:22 PM FINDINGS: Bones/joints: Significant degenerative changes in the right knee and right hip. No acute fracture. Moderate amount of joint fluid in the right. Soft tissues: Moderate subcutaneous and deep soft tissue edema throughout the right lower extremity. Vasculature: Large volume of venous thrombus noted throughout the right superficial femoral/popliteal vein from the level of the right knee proximal to just below the level of the deep femoral and superficial femoral venous junction. No evidence of thrombus in the right common femoral vein. Moderate diffuse atherosclerotic calcification femoral/popliteal artery. No severe stenosis or occlusion. IMPRESSION: Large volume venous thrombus throughout the right superficial femoral/popliteal vein to the level knee. Veins are not visualized below the level of the knee on this study. No extension of thrombus into the right common femoral vein.
[2024-04-29 21:57] LABS: Chloride 106 mmol/L (98-107); Potassium 4.3 mmoL/L (3.5-5.1); Sodium 138 mmol/L (136-145)
[2024-04-29 21:59] LABS: Blood Urea Nitrogen 17 mg/dl (9-20); Creatinine Clearance Estimated 59 mL/min (50-200); Estimated Glomerular Filt Rate 50 ml/min (>60); GFR (African American) 61 ML/MIN (>60)
[2024-04-29 22:00] LABS: Alanine Aminotransferase 16 U/L (12-78); Albumin Level 3.6 g/dl (3.5-5.0); Albumin/Globulin Ratio 1.1 (1.1-1.8); Alkaline Phosphatase 89 U/L (38-126); Anion Gap 12.3 mEq/L (5-15); Aspartate Amino Transferase 23 U/L (17-59); Bilirubin,Total 0.9 mg/dl (0.2-1.3); Calcium 9.3 mg/dl (8.4-10.2); Carbon Dioxide 24 mmol/L (22.0-30.0); Creatine Kinase 44 U/L (55-170); Globulin 3.2 g/dL (1.3-3.2); Glucose 98 mg/dl (74-100); Total Protein,Serum 6.8 g/dl (6.3-8.2)
[2024-04-29 22:02] LABS: INR 1.06 (0.9-1.1); Prothrombin Time 11.4 seconds (10.1-12.5)
[2024-04-29 22:05] LABS: C-Reactive Protein 104.4 mg/L (0-4)
[2024-04-29 22:10] VITALS: BP 139/76; PULSE 59; RESP 16; TEMP 37.1; O2SAT 98
[2024-04-29 22:20] LABS: D-Dimer 1.66 ug/mL (0.0-0.5)
[2024-04-29 22:28] LABS: Activated Partial Thrombo Time 27.6 seconds (22.8-30.6)
[2024-04-29] MEDS: IOPAMIDOL-370 (76%);100ML BOTTLE 145 ML IV (22:47)
[2024-04-29] MEDS: 0.9 % SODIUM CHLORIDE 50 ML VIAL IV (22:47)
[2024-04-29] MEDS: SODIUM CHLORIDE 0.9% 10ML SYR (RAD ONLY) 10 ML IV (22:47)
[2024-04-29 22:59] LABS: Erythrocyte Sedimentation Rate 83 mm/hr (0-20)
[2024-04-29 23:02] VITALS: BP 121/75; PULSE 60; RESP 16; TEMP 37.1; O2SAT 97
[2024-04-29 23:12] LABS: Troponin I < 0.01 ng/ml (0.00-0.034)
[2024-04-29] MEDS: ENOXAPARIN 100MG/ML SYRINGE 85 MG SQ (23:18)
--- NOTE | 2024-04-29 23:44 | PC.NURSE ---
house rn notified of need for bed
--- NOTE | 2024-04-29 23:49 | P.HP_ITS ---
History of Present Illness *Admission Date: 04/29/24 *Reason for visit:: right lower extremity pain *History of present illness: This is a 68 yo M with PMHx of COPD, current heavy smoker, NIDDM with polyneuropathy, HTN, hx of bladder cancer, presented to ED for evaluation of right lower leg pain. Patient reports the pain started at the knee and to the posterior calf. He denies any known trauma but did help move an upright freezer on Friday. Patient states is very painful to bear weight and the only position of comfort is with his leg fully extended. He denies chest pain shortness of breath fever chills hemoptysis hematochezia melena nausea vomiting diarrhea. He is not on any anticoagulants. Admitted for treatment and management. [facility] Disclaimer: The information contained in this section may have been updated after the patient was seen, as this information can be updated by other users. Medical History (Updated 04/30/24 @ 12:34 by Haider Blake MD) Ankylosing spondylitis History of COPD Smoking greater than 30 pack years Kidney stone History of arthritis Hyperlipemia Hypertension Diabetes Degenerative disc disease Surgical History History of surgery History of lumbar fusion History of appendectomy History of cholecystectomy Family History Other Family history of stroke Social History (Updated 04/30/24 @ 01:04 by Anat Mayers RN) Smoking Status: Current every day smoker tobacco type: cigarettes packs per day: 1 second hand exposure: No alcohol intake: never substance use type: denies use current occupational status: retired Travel in the last 8 weeks: None household members: spouse housing: house current occupational exposures/hazards: No caffeine: Yes Review of Systems Review of Systems Review of systems:: pertinent systems reviewed and negative unless documented below Meds Home Medications and Allergies Home Medications Medication Instructions Recorded Confirmed Type atorvastatin 80 mg tablet 80 mg PO HS 90 days 01/06/18 04/30/24 History omeprazole 20 mg capsule,delayed 20 mg PO DAILY 90 days 01/06/18 04/30/24 History release prednisone 5 mg tablet 5 mg PO DAILY 90 days 01/06/18 04/30/24 History adalimumab 40 mg/0.8 mL 40 mg SQ WEEKLY 11/04/19 04/30/24 History subcutaneous syringe kit (Humira) metformin 500 mg tablet 500 mg PO BID #0 tabs 11/04/19 04/30/24 History tamsulosin 0.4 mg capsule 0.8 mg PO HS #0 caps 11/04/19 04/30/24 History venlafaxine 75 mg capsule,extended 75 mg PO DAILY mood 02/28/21 04/30/24 History release 24 hr verapamil 240 mg tablet,extended 240 mg PO DAILY 05/31/21 04/30/24 History release diazepam 2 mg tablet 2 mg PO HS 10/02/21 04/30/24 History losartan 100 mg tablet 100 mg PO DAILY 02/04/22 04/30/24 History acetaminophen 325 mg tablet 650 mg PO DAILY PRN Pain/fever 09/20/22 04/30/24 History (Tylenol) apixaban 5 mg (74 tabs) tablets in 5 mg PO BID #74 tabs 04/30/24 Rx a dose pack (Eliquis DVT-PE Treat 30D Start) apixaban 5 mg tablet (Eliquis) 5 mg PO BID #60 tabs 04/30/24 Rx canagliflozin 300 mg tablet 300 mg PO DAILY 04/30/24 04/30/24 History (Invokana) fluticasone 250 mcg-salmeterol 50 1 inh inhalation BID 30 days #1 ea 04/30/24 Rx mcg/dose blistr powdr for inhalation (Advair Diskus) ipratropium 20 mcg-albuterol 100 2 puff inhalation QID PRN 04/30/24 04/30/24 History mcg/actuation mist for inhalation Shortness Of Breath (Combivent Respimat) New Prescriptions to Start Prescriptions: apixaban [Eliquis] Haider Blake apixaban [Eliquis DVT-PE Treat 30D Start] Haider Blake fluticasone propion-salmeterol [Advair Diskus] Haider Blake Allergies Allergy/AdvReac Type Severity Reaction Status Date / Time No Known Allergies Allergy Verified 07/15/23 12:10 Exam Data for Last 24 hours Vital signs and Labs for Last 24 Hours: Temp Pulse Resp BP Pulse Ox O2 Del Method 98.7 F 60 16 121/75 97 Room Air 04/29/24 23:02 04/29/24 23:02 04/29/24 23:02 04/29/24 23:02 04/29/24 23:02 04/29/24 23:02 Laboratory Results - last 24 hr 04/29/24 21:30: WBC 10.6, RBC 3.87 L, Hgb 11.7 L, Hct 37.0 L, MCV 95.5 H, MCH 30.2, MCHC 31.6 L, RDW 15.9, Plt Count 207, MPV 8.8, Neut % (Auto) 82.1 H, Lymph % (Auto) 10.9, [place] % (Auto) 5.1, Eos % (Auto) 1.7, Baso % (Auto) 0.2, Neut # (Auto) 8.7 H, Lymph # (Auto) 1.2, [place] # (Auto) 0.5, Eos # (Auto) 0.2, Baso # (Auto) 0.0, ESR 83 H, PT 11.4, INR 1.06, APTT 27.6, D-Dimer 1.66 H, Sodium 138, Potassium 4.3, Chloride 106, Carbon Dioxide 24, Anion Gap 12.3, BUN 17, C reatinine 1.40 H, Estimated Creat Clear 59, Estimated GFR 50 L, Est GFR ( Amer) 61, Glucose 98, Calcium 9.3, Total Bilirubin 0.9, AST 23, ALT 16, Alkaline Phosphatase 89, Total Creatine Kinase 44 L, Troponin I < 0.01, C-Reactive Protein 104.4 H, Total Protein 6.8, Albumin 3.6, Globulin 3.2, Albumin/Globulin Ratio 1.1 I & O for Last 24 hours: Intake & Output 04/26/24 04/27/24 04/28/24 04/29/24 23:59 23:59 23:59 23:59 Weight 82.554 kg Constitutional Constitutional: mild distress and cooperative *Routine HEENT Exam Head: Present normocephalic Eye: Present EOMI and PERRL ENT: Present mucous membranes moist *Routine Neck Exam Neck: Present supple; Absent lymphadenopathy *Routine Respiratory Exam Respiratory: Present CTA bilaterally, wheezes, diminished air movement and symmetric chest movement *Routine Cardiovascular Exam Cardiovascular: Present RRR, Normal S1, Normal S2 and bradycardia *Routine Abdominal Exam Abdominal: Present soft and normoactive bowel sounds; Absent tenderness *Routine Rectal Exam Rectal:: deferred *Routine Genitalia Exam Genitalia:: deferred *Routine Extremities Exam Extremities: Present edema, full ROM, pulses intact, calf tenderness and tenderness; Absent cyanosis or clubbing *Routine Skin Exam Skin: Present erythema, warm, scars, rash and cracked; Absent intact *Routine Neurological Exam Neurological: Present alert, oriented X3, normal reflexes and moving all extremities Routine Psychiatric Exam Psychiatric: Present normal affect and good insight Detailed Lower Extremity Exam Lower leg: right: swelling, right: tenderness and right: wound Foot/Toes: bilateral: deformity, bilateral: onychomycosis and bilateral: wound Leg image: 2 1. Top foot image: 2 1. 2. Bottom foot image: 2 1. H&P: Result Imaging and Cardiology Chest x-ray: Status: image reviewed by me, Preliminary report and final report CT scan - chest: Status: image reviewed by me, Preliminary report and final report CT scan - abdomen: Status: image reviewed by me, Preliminary report and final report CT femur: Status: image reviewed by me, Preliminary report and final report Assessment and Plan *Assessment and plan (1) Pulmonary emboli: Status: Acute Qualifiers: Acute cor pulmonale presence: without acute cor pulmonale Chronicity: a cute Pulmonary embolism type: unspecified Qualified Code(s): I26.99 - Other pulmonary embolism without acute cor pulmonale Category: Medical Code(s): I26.99 - Other pulmonary embolism without acute cor pulmonale (2) Deep vein thrombosis (DVT) of proximal vein of right lower extremity: Status: Acute Qualifiers: Chronicity: acute Qualified Code(s): I82.4Y1 - Acute embolism and thrombosis of unspecified deep veins of right proximal lower extremity Category: Medical Code(s): I82.4Y1 - Acute embolism and thrombosis of unspecified deep veins of right proximal lower extremity (3) Type 2 diabetes mellitus with diabetic polyneuropathy, without long-term current use of insulin: Status: Chronic Category: Medical Code(s): E11.42 - Type 2 diabetes mellitus with diabetic polyneuropathy (4) CKD (chronic kidney disease): Status: Acute Qualifiers: Chronic kidney disease stage: stage 3 (moderate) Chronic kidney disease stage 3 subtype: stage 3a (GFR 45-59) Qualified Code(s): N18.31 - Chronic kidney disease, stage 3a Category: Medical Code(s): N18.9 - Chronic kidney disease, unspecified (5) Hypertension: Status: Acute Qualifiers: Hypertension type: unspecified Qualified Code(s): I10 - Essential (primary) hypertension Category: Medical Code(s): I10 - Essential (primary) hypertension (6) COPD (chronic obstructive pulmonary disease): Status: Acute Qualifiers: COPD type: unspecified COPD Qualified Code(s): J44.9 - Chronic obstructive pulmonary disease, unspecified Category: Medical Code(s): J44.9 - Chronic obstructive pulmonary disease, unspecified (7) Current smoker: Status: Acute Category: Social Hx Code(s): F17.200 - Nicotine dependence, unspecified, uncomplicated (8) Ankylosing spondylitis: Status: Chronic Category: Medical Code(s): M45.9 - Ankylosing spondylitis of unspecified sites in spine Plan 68 yo M with PMHx of COPD, current heavy smoker, NIDDM with polyneuropathy, HTN, hx of bladder cancer, presented to ED for evaluation of right lower leg pain. Patient reports the pain started at the knee and to the posterior calf. Initial interventions included pain management. Labs shows that he has an elevated D-dimer, creatinine is at his baseline of 1.4, CK is 44, CRP is elevated at 104. ED conducted a [id number] ultrasound that shows clot out of the range of the ultrasound, therefore they decided workup CTA PE protocol and CT of his lower extremity CT abdomen pelvis. Findings are consistent with DVT and partial PE, with no right side heart stream. Discussed with ED. patient still unable to weight bare on right foot without visible sign of pain. Agreed for admission. Plan as follow: -Pulmonary embolism Right popliteal femoral vein thrombosis: Complaining of painful weightbearing while ambulating. Admitted for further treatment and management Dispo MedSurg Started on full dose of Lovenox twice daily Monitor for shortness of breath. Currently on room air Rest of the vital signs per unit protocol Pain management with Tylenol and morphine as needed for severe pain Will bring physical therapy to eval patient in the morning Rvd-wsdikgt-sephazola diabetes: With polyneuropathy and chronic kidney disease. Stable Accu-Chek before meals On sliding scale Hold metformin in the setting of chronic kidney disease -Hypertension: Hold verapamil in the setting of normotension and bradycardia May need to adjust the dose History of COPD and current smoker Nebulizer as needed On nicotine patch On Lovenox and Protonix Full code Rounded on patient after nurse practitioner. Personally examined and interviewed patient. Agree with exam findings and care plan as documented. Pulmonology consulted to assist with care and close follow-up. Formal Doppler of right lower extremity pending.
[2024-04-30] VITALS (10 sets, daily range): BP systolic 104–131; BP diastolic 59–70; PULSE 44–80; RESP 16–18; TEMP 36.4–37.1; O2SAT 95–99; BMI 26.0; BMI 26.2
--- NOTE | 2024-04-30 00:02 | PC.NURSE ---
Attempted to call report Heaven MADSEN to call back for report
--- NOTE | 2024-04-30 00:13 | PC.NURSE ---
0007 received phone report from Christelle rn/ED nurse. Patient is a 68 yo male. Dx: PE right lung and DVT right leg. To transport by stretcher.
--- NOTE | 2024-04-30 00:34 | PC.NURSE ---
pt arrived to floor via stretcher from ed, @ 0032
[2024-04-30] MEDS: 0.9 % SODIUM CHLORIDE 1000ML 1,000 ML 75 ML IV (00:41)
[2024-04-30] MEDS: IPRATROPIUM/ALBUTEROL 3 ML NEB IH ×3 (01:00→10:34)
--- NOTE | 2024-04-30 01:46 | PC.NURSE ---
Addendum entered by Heaven Salcedo RN 04/30/24 01:50: HAS LARGE AREA TO RIGHT INNER FOOT BELOW SHELLIE WHICH APPEARS OLS, SCALY FLAKY RED. BANDAID NOTED TO RIGHT MID BACK PAIN PUMP. Original Note: DARK PIGMENTATION NOTED ANTERIOR LEFT BOO. RIGHT BOO EDEMATOUS 1 + , WARM, RED. LEFT DORSALIS PEDIS STRONG. RIGHT DORSALIS THREADY. BOTH FEET WARM AND DRY. DENIES PAIN IN RIGHT LEG AT THIS TIME. PATIENT IS A SMOKER AND HAS SOME FAINT WHEEZES BILAT.
[2024-04-30 02:12] LABS: Troponin I < 0.01 ng/ml (0.00-0.034)
--- NOTE | 2024-04-30 04:29 | PC.NURSE ---
PATIENTS 02 SATS DROPPED TO 85% AT 0300 WHILE SLEEPING AND WAS PLACED ON 2L NASAL CANULA AND SATS INCREASED TO 99%. PATIENT IS A MOUTH BREATHER. DENIES CHEST PAIN/SOA/DISCOMFORT. SINUS BRADYCARDIA AND PACs NOTED ON TELEMETRY.
[2024-04-30 05:33] LABS: POC Glucose,Bedside 84 (70-110)
[2024-04-30 06:18] LABS: Basophils % 0.3 % (0.1-2.0); Eosinophils # 0.2 K/mm3 (0.0-0.4); Eosinophils % 1.8 % (0.1-12.0); Hematocrit 35.1 % (42.0-52.0); Hemoglobin 10.9 g/dL (14.1-18.0); Lymphocytes # 1.5 K/mm3 (0.7-4.5); Lymphocytes % 16.8 % (10-50); Mean Corpuscular HGB Conc 31.1 g/dL (31.8-35.4); Mean Corpuscular Hemoglobin 30.1 pg (27.0-31.2); Mean Corpuscular Volume 96.8 fl (80-94); Mean Platelet Volume 8.9 fl (7.4-10.4); Monocytes # 0.5 K/mm3 (0.1-1.0); Monocytes % 5.2 % (1.7-9.3); Neutrophils # 6.8 K/mm3 (1.8-7.8); Neutrophils % 75.9 % (37.0-80.0); Platelet Count 179 K/mm3 (142-424); Red Blood Count 3.63 M/mm3 (4.60-6.20); Red Cell Distribution Width 15.9 % (11.5-17.5)
[2024-04-30 06:20] LABS: Chloride 108 mmol/L (98-107); Sodium 136 mmol/L (136-145)
[2024-04-30 06:23] LABS: Alanine Aminotransferase 10 U/L (12-78); Albumin Level 2.9 g/dl (3.5-5.0); Alkaline Phosphatase 86 U/L (38-126); Aspartate Amino Transferase 20 U/L (17-59); Bilirubin,Total 0.7 mg/dl (0.2-1.3); Blood Urea Nitrogen 17 mg/dl (9-20); Calcium 8.7 mg/dl (8.4-10.2); Carbon Dioxide 24 mmol/L (22.0-30.0); Creatinine Clearance Estimated 65 mL/min (50-200); Estimated Glomerular Filt Rate 55 ml/min (>60); GFR (African American) 66 ML/MIN (>60); Globulin 2.9 g/dL (1.3-3.2); Glucose 72 mg/dl (74-100); Magnesium 1.8 mg/dl (1.6-2.3); Total Protein,Serum 5.8 g/dl (6.3-8.2)
[2024-04-30 06:35] LABS: Troponin I < 0.01 ng/ml (0.00-0.034)
--- NOTE | 2024-04-30 07:26 | HMH.PHAINT1 ---
Pharmacy Intervention Comments: home medication list verified using list from outpatient pharmacy
--- NOTE | 2024-04-30 08:01 | HMH.PTEV ---
Physical Therapy Evaluation Rehab PT IP Evaluation Start: 04/30/24 07:25 Freq: ONCE Status: Active Protocol: Document 04/30/24 07:53 ALPHONSO (Rec: 04/30/24 08:00 ALPHONSO [email or web address]) Subjective/History History History Per H&P: This is a 68 yo M with PMHx of COPD, current heavy smoker, NIDDM with polyneuropathy, HTN, hx of bladder cancer, presented to ED for evaluation of right lower leg pain. Patient reports the pain started at the knee and to the posterior calf. He denies any known trauma but did help move an upright freezer on Friday. Patient states is very painful to bear weight and the only position of comfort is with his leg fully extended. He denies chest pain shortness of breath fever chills hemoptysis hematochezia melena nausea vomiting diarrhea. He is not on any anticoagulants. Admitted for treatment and management. Subjective Subjective PLOF per pt report: Lives with in single-story home with 4 LEELEE (one HR). Pt owns a cane. Pt was IND with ADLs and functional mobility prior to admission and was driving. Pt's is home during the day and able to assist if needed. Pt wearing NC with no O2 on. Pt's O2 sats remained >96% throughout evaluation and after ambulation. Pt reports he is not on O2 at home. New diagnosis of cancer in past 12 No months? Rehab PT IP Eval Objective Appearance Patient Behavior Appropriate,Cooperative Patient Orientation Person,Situation Difficulty following instructions none Speech Pattern Clear Ambulation Patient Able to Ambulate Yes Ambulation Observation IP General Gait Pattern Observation Antalgic Gait Ambulation Distance (feet) 20 Ambulation Assistive Device Rolling Walker Ambulation Ability Contact Guard/Hand Hold Balance Ability to Arise Able, uses arms to help Sitting Balance Steady, safe Standing Balance Steady, wide stance Transfers Bed Transfer Ability Supervision/Stand by Sit to Stand Bed Transfer Ability Supervision/Stand by Rehab PT IP prob,goals,plan Problems Date of Evaluation: 04/30/24 PT IP Problems Bed Mobility,Transfers,Gait, Balance,Safety Rehab Potential Rehab Potential Good Equipment Needs Assistive Devices Rolling / Wheeled Walker Plan PT Intervention Plan Bed Mobility,Transfers,Gait, Balance,Safety,Therapeutic Exercise Other Intervention Plan 1-2 times PT Plan Frequency Daily Duration LOS Discharge Goals Bed Transfer Ability Independent Sit to Stand Chair Transfer Ability Independent Ambulation Assistive Device Rolling Walker Ambulation Distance (feet) 30 Discharge Plan PT Discharge Plan Initial physical therapy evaluation performed. Patient presents below baseline at this time in functional mobility, transfers, gait, and strength. Pt would benefit from skilled PT while at [facility] to prevent further functional decline and maximize safety with mobility. Pt safe to d/c home when deemed medically necessary d/t current level of mobility, home set-up, and family support. PT recommending home health PT services to address endurance and strength deficits. PT discussed pt's need for RW with care management. Eval Complexity Eval Charge Codes 90510 - Moderate Complexity PHYSICIAN CERTIFICATION: I certify the specified therapy services for Tirso Martin are required, authorized, and reviewed every 30 days.
[2024-04-30] MEDS: predniSONE 5MG TAB 5 MG PO (08:35)
[2024-04-30] MEDS: IRBESARTAN 150MG TAB 150 MG PO (08:35)
[2024-04-30] MEDS: VENLAFAXINE XR 75MG CAPSULE 75 MG PO (08:35)
[2024-04-30] MEDS: METFORMIN 500MG TABLET 500 MG PO (08:35)
[2024-04-30] MEDS: VERAPAMIL SR 120MG TABLET 240 MG PO (08:35)
--- NOTE | 2024-04-30 09:40 | EXP.PULM.CON ---
History of Present Illness History of present illness: Mrs. Martin is a 68-year-old male reported history of COPD, ankylosing spondylitis currently receiving Humira, chronic back pain on pain pump, not much active at baseline, [id number] diabetes with polyneuropathy hypertension, history of bladder cancer presented to the ER with right lower extremity pain [facility] Disclaimer: The information contained in this section may have been updated after the patient was seen, as this information can be updated by other users. Medical History (Updated 04/30/24 @ 12:06 by Anne Ko MD) History of COPD Smoking greater than 30 pack years Kidney stone History of arthritis Hyperlipemia Hypertension Diabetes Degenerative disc disease Surgical History History of surgery History of lumbar fusion History of appendectomy History of cholecystectomy Family History Other Family history of stroke Social History (Updated 04/30/24 @ 01:04 by Anat Mayers RN) Smoking Status: Current every day smoker tobacco type: cigarettes packs per day: 1 second hand exposure: No alcohol intake: never substance use type: denies use current occupational status: retired Travel in the last 8 weeks: None household members: spouse housing: house current occupational exposures/hazards: No caffeine: Yes Review of Systems Constitutional Constitutional: Reports anorexia, Reports body ache(s) and Reports fatigue Eyes Eyes: Denies eye discharge, Denies dry eyes, Denies irritation and Denies itchy eyes ENT Ears, Nose, Mouth, and Throat: Denies epistaxis, Denies facial pain, Denies lip swelling and Denies throat swelling *Cardiovascular Cardiovascular: Reports dyspnea and Reports dyspnea on exertion *Respiratory Respiratory: Reports chest congestion, Reports cough, Reports dyspnea, Reports dyspnea on exertion, Denies excessive phlegm production, Denies hemoptysis, Denies pain on inspiration, Denies pain with cough and Denies wheezing *Gastrointestinal Gastrointestinal: Denies abdominal pain, Denies belching and Denies cramping *Musculoskeletal Musculoskeletal: Reports back pain, Reports myalgias and Reports other (No small joint swelling or Pain) Comments: Right lower extremity swelling and pain Psychiatric Psychiatric: Denies homicidal ideation and Denies suicidal ideation Endocrine Endocrine: Reports fatigue and Denies heat intolerance Hematologic/Lymphatic Hematologic/Lymphatic: Denies easy bleeding and Denies lymphadenopathy Allergic/Immunologic Allergic/Immunologic: Denies itchy eyes, Denies lip swelling, Denies throat swelling and Denies wheezing Pulmonology Exam Inpatient Vital signs and Labs for Last 24 Hours: Temp Pulse Resp BP Pulse Ox O2 Del Method O2 Flow Rate 97.7 F 59 L 18 131/69 98 Room Air 1 04/30/24 08:00 04/30/24 08:00 04/30/24 08:00 04/30/24 08:00 04/30/24 08:00 04/30/24 08:26 04/30/24 05:56 Laboratory Results - last 24 hr 04/29/24 21:30: WBC 10.6, RBC 3.87 L, Hgb 11.7 L, Hct 37.0 L, MCV 95.5 H, MCH 30.2, MCHC 31.6 L, RDW 15.9, Plt Count 207, MPV 8.8, Neut % (Auto) 82.1 H, Lymph % (Auto) 10.9, [place] % (Auto) 5.1, Eos % (Auto) 1.7, Baso % (Auto) 0.2, Neut # (Auto) 8.7 H, Lymph # (Auto) 1.2, [place] # (Auto) 0.5, Eos # (Auto) 0.2, Baso # (Auto) 0.0, ESR 83 H, PT 11.4, INR 1.06, APTT 27.6, D-Dimer 1.66 H, Sodium 138, Potassium 4.3, Chloride 106, Carbon Dioxide 24, Anion Gap 12.3, BUN 17, Creatinine 1.40 H, Estimated Creat Clear 59, Estimated GFR 50 L, Est GFR ( Amer) 61, Glucose 98, Calcium 9.3, Total Bilirubin 0.9, AST 23, ALT 16, Alkaline Phosphatase 89, Total Creatine Kinase 44 L, Troponin I < 0.01, C-Reactive Protein 104.4 H, Total Protein 6.8, Albumin 3.6, Globulin 3.2, Albumin/Globulin Ratio 1.1 04/30/24 01:45: Troponin I < 0.01 04/30/24 05:11: POC Glucose 84 04/30/24 05:18: WBC 9.0, RBC 3.63 L, Hgb 10.9 L, Hct 35.1 L, MCV 96.8 H, MCH 30.1, MCHC 31.1 L, RDW 15.9, Plt Count 179, MPV 8.9, Neut % (Auto) 75.9, Lymph % (Auto) 16.8, [place] % (Auto) 5.2, Eos % (Auto) 1.8, Baso % (Auto) 0.3, Neut # (Auto) 6.8, Lymph # (Auto) 1.5, [place] # (Auto) 0.5, Eos # (Auto) 0.2, Baso # (Auto) 0.0, Sodium 136, Potassium 4.0, Chloride 108 H, Carbon Dioxide 24, Anion Gap 8.0, BUN 17, Creatinine 1.30 H, Estimated Creat Clear 65, Estimated GFR 55 L, Est GFR ( Amer) 66, Glucose 72 L D, Calcium 8.7, Magnesium 1.8, Total Bilirubin 0.7, AST 20, ALT 10 L D, Alkaline Phosphatase 86, Troponin I < 0.01, Total Protein 5.8 L, Albumin 2.9 L D, Globulin 2.9, Albumin/Globulin Ratio 1.0 L I & O for Labs for Last 24 Hours: Intake & Output 04/27/24 04/28/24 04/29/24 04/30/24 23:59 23:59 23:59 23:59 Intake Total 812 / 812 Balance 812 / 812 Weight 182 lb 187 lb 11.2 oz Constitutional: Present moderate distress Head: Present normocephalic and atraumatic ENT: Present normal exam, normal oropharynx and mucous membranes moist Neck: Present normal inspection and full ROM Respiratory: Present normal respiratory effort and able to speak in complete sentences; Absent prolonged expiratory phase, respiratory distress, wheezes or crackles Cardiac: Present S1/S2, Tachycardia and radial pulses present GI: Present soft and distention; Absent tenderness or guarding Skin: Present intact; Absent cyanosis or jaundice Neuro: Present alert, awake and oriented x 3 Extremities: Present normal inspection and edema; Absent clubbing or cyanosis Psychiatric: Present normal affect and cooperative Meds Home Medications and Allergies Home Medications Medication Instructions Recorded Confirmed Type atorvastatin 80 mg tablet 80 mg PO HS 90 days 01/06/18 04/30/24 History omeprazole 20 mg capsule,delayed 20 mg PO DAILY 90 days 01/06/18 04/30/24 History release prednisone 5 mg tablet 5 mg PO DAILY 90 days 01/06/18 04/30/24 History adalimumab 40 mg/0.8 mL 40 mg SQ WEEKLY 11/04/19 04/30/24 History subcutaneous syringe kit (Humira) metformin 500 mg tablet 500 mg PO BID #0 tabs 11/04/19 04/30/24 History tamsulosin 0.4 mg capsule 0.8 mg PO HS #0 caps 11/04/19 04/30/24 History venlafaxine 75 mg capsule,extended 75 mg PO DAILY mood 02/28/21 04/30/24 History release 24 hr verapamil 240 mg tablet,extended 240 mg PO DAILY 05/31/21 04/30/24 History release diazepam 2 mg tablet 2 mg PO HS 10/02/21 04/30/24 History losartan 100 mg tablet 100 mg PO DAILY 02/04/22 04/30/24 History acetaminophen 325 mg tablet 650 mg PO DAILY PRN Pain/fever 09/20/22 04/30/24 History (Tylenol) apixaban 5 mg (74 tabs) tablets in 5 mg PO BID #74 tabs 04/30/24 Rx a dose pack (Eliquis DVT-PE Treat 30D Start) apixaban 5 mg tablet (Eliquis) 5 mg PO BID #60 tabs 04/30/24 Rx canagliflozin 300 mg tablet 300 mg PO DAILY 04/30/24 04/30/24 History (Invokana) fluticasone 250 mcg-salmeterol 50 1 inh inhalation BID 30 days #1 ea 04/30/24 Rx mcg/dose blistr powdr for inhalation (Advair Diskus) ipratropium 20 mcg-albuterol 100 2 puff inhalation QID PRN 04/30/24 04/30/24 History mcg/actuation mist for inhalation Shortness Of Breath (Combivent Respimat) New Prescriptions to Start Prescriptions: sincerexaban [Eliquis] Haider Blake apixaban [Eliquis DVT-PE Treat 30D Start] Haider Blake fluticasone propion-salmeterol [Advair Diskus] Haider Blake Allergies Allergy/AdvReac Type Severity Reaction Status Date / Time No Known Allergies Allergy Verified 07/15/23 12:10 Results Laboratory Findings 04/30/24 05:18 04/30/24 05:18 PT/INR, D-dimer PT 11.4 seconds (10.1-12.5) 04/29/24 21:30 INR 1.06 (0.9-1.1) 04/29/24 21:30 D-Dimer 1.66 ug/mL (0.0-0.5) H 04/29/24 21:30 Abnormal lab findings: Abnormal Labs 04/29/24 04/30/24 21:30 05:18 RBC 3.87 L 3.63 L Hgb 11.7 L 10.9 L Hct 37.0 L 35.1 L MCV 95.5 H 96.8 H MCHC 31.6 L 31.1 L Neut % (Auto) 82.1 H Neut # (Auto) 8.7 H ESR 83 H D-Dimer 1.66 H Chloride 108 H Creatinine 1.40 H 1.30 H Estimated GFR 50 L 55 L Glucose 72 L D ALT 10 L D Total Creatine Kinase 44 L C-Reactive Protein 104.4 H Total Protein 5.8 L Albumin 2.9 L D Albumin/Globulin Ratio 1.0 L Assessment and Plan *Assessment and plan (1) Deep vein thrombosis (DVT) of proximal vein of right lower extremity: Status: Acute Qualifiers: Chronicity: acute Qualified Code(s): I82.4Y1 - Acute embolism and thrombosis of unspecified deep veins of right proximal lower extremity Category: Medical Code(s): I82.4Y1 - Acute embolism and thrombosis of unspecified deep veins of right proximal lower extremity (2) Pulmonary emboli: Status: Acute Qualifiers: Acute cor pulmonale presence: without acute cor pulmonale Chronicity: acute Pulmonary embolism type: unspecified Qualified Code(s): I26.99 - Other pulmonary embolism without acute cor pulmonale Category: Medical Code(s): I26.99 - Other pulmonary embolism without acute cor pulmonale (3) Smoking greater than 30 pack years: Status: Acute Category: Social Hx Code(s): F17.210 - Nicotine dependence, cigarettes, uncomplicated (4) History of COPD: Status: Acute Category: Medical Code(s): Z87.09 - Personal history of other diseases of the respiratory system Plan Mrs. Martin is a 68-year-old male reported history of COPD, ankylosing spondylitis currently receiving Humira, chronic back pain on pain pump, not much active at baseline, [id number] diabetes with polyneuropathy hypertension, history of bladder cancer presented to the ER with right lower extremity pain CTA upon admission no dense evaluation/airspace disease. Calcified pulmonary nodules. Pulmonary embolism noted nonfilling of the bifurcation of the right PA and distal pulmonary arteries. No CT imaging evidence of RV strain noted. Troponins within normal limits. D-dimer elevated at 1.66 Patient denies any lifestyle changes recently. Pulmonary embolism appears more to be provoked. Not in any respiratory distress. Right lower extremity swelling. Lower extremity Doppler images from the ER noncompressible right common femoral, femoral and popliteal vein. Plan: -Continue Eliquis, will likely need indefinite anticoagulation at this point of time Initiate Advair 250 daily pending outpatient evaluation for extent of COPD with a PFT and walk testing On room air saturating 96%. Brief desaturations noted overnight. Follow with 6-minute walk testing prior to discharge # Thank you for involving pulmonary in this patient We will follow the patient in pulmonary clinic in 5 to 10 days post discharge. He continue to have CT screenings, most recent low-dose CT from March 2024 and CTA from this admission did not show any other suspicious pulmonary nodules.
--- NOTE | 2024-04-30 10:21 | P.DS_ITS ---
General Admission date:: 04/30/24 Discharge date: 04/30/24 HPI HPI HPI: This is a 68 yo M with PMHx of COPD, current heavy smoker, NIDDM with polyneuropathy, HTN, hx of bladder cancer, presented to ED for evaluation of right lower leg pain. Patient reports the pain started at the knee and to the posterior calf. He denies any known trauma but did help move an upright freezer on Friday. Patient states is very painful to bear weight and the only position of comfort is with his leg fully extended. He denies chest pain shortness of breath fever chills hemoptysis hematochezia melena nausea vomiting diarrhea. He is not on any anticoagulants. Admitted for treatment and management. Hospital Course Hospital Course Hospital Course: 68 yo M with PMHx of COPD, current heavy smoker, NIDDM with polyneuropathy, HTN, hx of bladder cancer, presented to ED for evaluation of right lower leg pain. Patient reports the pain started at the knee and to the posterior calf. Initial interventions included pain management. Labs shows that he has an elevated D-dimer, creatinine is at his baseline of 1.4, CK is 44, CRP is elevated at 104. ED conducted a [id number] ultrasound that shows clot out of the range of the ultrasound, therefore they decided workup CTA PE protocol and CT of his lower extremity CT abdomen pelvis. Findings are consistent with DVT and partial PE, with no right side heart stream. Discussed with ED. patient still unable to weight bare on right foot without visible sign of pain. Agreed for admission. Doing well by morning. Pulmonology consulted and evaluated patient. Will transition to oral anticoagulation. Stable to discharge home with close follow-up as an outpatient. Tolerating room air. Problems addressed as follows: Pulmonary embolism Right lower extremity DVT/popliteal femoral vein thrombosis: Presented with complaint of pain while weightbearing on his right leg. Denied any chest pain or shortness of breath. Evaluation in the ER with CTA showing pulmonary embolism, no right heart strain. Subsegmental in character. Stable on room air during admission. Ultrasound of right lower extremity showing extensive DVT. Initially treated with Lovenox 1 mg/kg twice daily. Pulmonology was consulted to assist with care given COPD history as well as presence of PE. Will transition to Eliquis for at least the next 3 months. Stable to discharge home with close follow-up. Therapy evaluated, will discharge home with home health and a walker. Pain stable. Hse-[id number]-[id number] diabetes: With polyneuropathy and chronic kidney disease. Stable Treated with oral medications. Continue sliding scale insulin fingersticks ACHS during admission. Resume home regimen at discharge. -Hypertension: Resume home regimen at discharge. History of COPD and current smoker Continue Combivent as needed 4 times a day. Initiated on Advair. Will follow with pulmonology for further management of his COPD. Counseled on benefits of smoking cessation. Total time spent on discharge 32 minutes in counseling, documentation, chart review, and direct care with patient. Exam Data for Last 24 hours Vital signs and Labs for Last 24 Hours: Temp Pulse Resp BP Pulse Ox O2 Del Method O2 Flow Rate 97.7 F 59 L 18 131/69 98 Room Air 1 04/30/24 08:00 04/30/24 08:00 04/30/24 08:00 04/30/24 08:00 04/30/24 08:00 04/30/24 08:26 04/30/24 05:56 Laboratory Results - last 24 hr 04/29/24 21:30: WBC 10.6, RBC 3.87 L, Hgb 11.7 L, Hct 37.0 L, MCV 95.5 H, MCH 30.2, MCHC 31.6 L, RDW 15.9, Plt Count 207, MPV 8.8, Neut % (Auto) 82.1 H, Lymph % (Auto) 10.9, [place] % (Auto) 5.1, Eos % (Auto) 1.7, Baso % (Auto) 0.2, Neut # (Auto) 8.7 H, Lymph # (Auto) 1.2, [place] # (Auto) 0.5, Eos # (Auto) 0.2, Baso # (Auto) 0.0, ESR 83 H, PT 11.4, INR 1.06, APTT 27.6, D-Dimer 1.66 H, Sodium 138, Potassium 4.3, Chloride 106, Carbon Dioxide 24, Anion Gap 12.3, BUN 17, Creatinine 1.40 H, Estimated Creat Clear 59, Estimated GFR 50 L, Est GFR ( Amer) 61, Glucose 98, Calcium 9.3, Total Bilirubin 0.9, AST 23, ALT 16, Alkaline Phosphatase 89, Total Creatine Kinase 44 L, Troponin I < 0.01, C- Reactive Protein 104.4 H, Total Protein 6.8, Albumin 3.6, Globulin 3.2, Albumin/Globulin Ratio 1.1 04/30/24 01:45: Troponin I < 0.01 04/30/24 05:11: POC Glucose 84 04/30/24 05:18: WBC 9.0, RBC 3.63 L, Hgb 10.9 L, Hct 35.1 L, MCV 96.8 H, MCH 30.1, MCHC 31.1 L, RDW 15.9, Plt Count 179, MPV 8.9, Neut % (Auto) 75.9, Lymph % (Auto) 16.8, [place] % (Auto) 5.2, Eos % (Auto) 1.8, Baso % (Auto) 0.3, Neut # (Auto) 6.8, Lymph # (Auto) 1.5, [place] # (Auto) 0.5, Eos # (Auto) 0.2, Baso # (Auto) 0.0, Sodium 136, Potassium 4.0, Chloride 108 H, Carbon Dioxide 24, Anion Gap 8.0, BUN 17, Creatinine 1.30 H, Estimated Creat Clear 65, Estimated GFR 55 L , Est GFR ( Amer) 66, Glucose 72 L D, Calcium 8.7, Magnesium 1.8, Total Bilirubin 0.7, AST 20, ALT 10 L D, Alkaline Phosphatase 86, Troponin I < 0.01, Total Protein 5.8 L, Albumin 2.9 L D, Globulin 2.9, Albumin/Globulin Ratio 1.0 L I & O for Last 24 hours: Intake & Output 04/27/24 04/28/24 04/29/24 04/30/24 23:59 23:59 23:59 23:59 Intake Total 812 / 812 Balance 812 / 812 Weight 82.554 kg 85.139 kg Constitutional Constitutional: no acute distress, average body habitus, chronically ill appearing and cooperative *Routine HEENT Exam Head: Present normocephalic Eye: Present EOMI and PERRL ENT: Present mucous membranes moist *Routine Neck Exam Neck: Present supple; Absent lymphadenopathy *Routine Respiratory Exam Respiratory: Present prolonged expiratory phase; Absent rhonchi, wheezes or crackles *Routine Cardiovascular Exam Cardiovascular: Present RRR *Routine Abdominal Exam Abdominal: Present soft and normoactive bowel sounds; Absent tenderness *Routine Rectal Exam Patient deferred: visual exam *Routine Exam Patient deferred: penile exam *Routine Extremities Exam Extremities: Present edema (Trace in right lower extremity); Absent cyanosis or clubbing Comments: Right lower extremity slightly more swollen than left. *Routine Skin Exam Skin: Present warm; Absent rash Comments: Eczema-like rash on anterior shins bilaterally with keratotic scale *Routine Neurological Exam Neurological: Present alert, oriented X3 and moving all extremities; Absent altered mental status Results Data Completed and Pending Labs on day of discharge: Labs from last 24 hours 04/30/24 04/30/24 04/30/24 05:18 05:11 01:45 WBC 9.0 RBC 3.63 L Hgb 10.9 L Hct 35.1 L MCV 96.8 H MCH 30.1 MCHC 31.1 L RDW 15.9 Plt Count 179 MPV 8.9 Neut % (Auto) 75.9 Lymph % (Auto) 16.8 [place] % (Auto) 5.2 Eos % (Auto) 1.8 Baso % (Auto) 0.3 Neut # (Auto) 6.8 Lymph # (Auto) 1.5 [place] # (Auto) 0.5 Eos # (Auto) 0.2 Baso # (Auto) 0.0 ESR PT INR APTT D-Dimer Sodium 136 Potassium 4.0 Chloride 108 H Carbon Dioxide 24 Anion Gap 8.0 BUN 17 Creatinine 1.30 H Estimated Creat Clear 65 Estimated GFR 55 L Est GFR ( Amer) 66 Glucose 72 L D POC Glucose 84 Calcium 8.7 Magnesium 1.8 Total Bilirubin 0.7 AST 20 ALT 10 L D Alkaline Phosphatase 86 Total Creatine Kinase Troponin I < 0.01 < 0.01 C-Reactive Protein Total Protein 5.8 L Albumin 2.9 L D Globulin 2.9 Albumin/Globulin Ratio 1.0 L 04/29/24 21:30 WBC 10.6 RBC 3.87 L Hgb 11.7 L Hct 37.0 L MCV 95.5 H MCH 30.2 MCHC 31.6 L RDW 15.9 Plt Count 207 MPV 8.8 Neut % (Auto) 82.1 H Lymph % (Auto) 10.9 [place] % (Auto) 5.1 Eos % (Auto) 1.7 Baso % (Auto) 0.2 Neut # (Auto) 8.7 H Lymph # (Auto) 1.2 [place] # (Auto) 0.5 Eos # (Auto) 0.2 Baso # (Auto) 0.0 ESR 83 H PT 11.4 INR 1.06 APTT 27.6 D-Dimer 1.66 H Sodium 138 Potassium 4.3 Chloride 106 Carbon Dioxide 24 Anion Gap 12.3 BUN 17 Creatinine 1.40 H Estimated Creat Clear 59 Estimated GFR 50 L Est GFR ( Amer) 61 Glucose 98 POC Glucose Calcium 9.3 Magnesium Total Bilirubin 0.9 AST 23 ALT 16 Alkaline Phosphatase 89 Total Creatine Kinase 44 L Troponin I < 0.01 C-Reactive Protein 104.4 H Total Protein 6.8 Albumin 3.6 Globulin 3.2 Albumin/Globulin Ratio 1.1 DS: Diagnosis Discharge Diagnosis (1) Pulmonary emboli: Status: Acute Code(s): I26.99 - Other pulmonary embolism without acute cor pulmonale Qualifiers: Acute cor pulmonale presence: without acute cor pulmonale Chronicity: acute Pulmonary embolism type: unspecified Qualified Code(s): I26.99 - Other pulmonary embolism without acute cor pulmonale (2) Deep vein thrombosis (DVT) of proximal vein of right lower extremity: Status: Acute Code(s): I82.4Y1 - Acute embolism and thrombosis of unspecified deep veins of right proximal lower extremity Qualifiers: Chronicity: acute Qualified Code(s): I82.4Y1 - Acute embolism and thrombosis of unspecified deep veins of right proximal lower extremity (3) Type 2 diabetes mellitus with diabetic polyneuropathy, without long-term current use of insulin: Status: Chronic Code(s): E11.42 - Type 2 diabetes mellitus with diabetic polyneuropathy (4) CKD (chronic kidney disease): Status: Acute Code(s): N18.9 - Chronic kidney disease, unspecified Qualifiers: Chronic kidney disease stage: stage 3 (moderate) Chronic kidney disease stage 3 subtype: stage 3a (GFR 45-59) Qualified Code(s): N18.31 - Chronic kidney disease, stage 3a (5) Hypertension: Status: Acute Code(s): I10 - Essential (primary) hypertension Qualifiers: Hypertension type: unspecified Qualified Code(s): I10 - Essential (primary) hypertension (6) COPD (chronic obstructive pulmonary disease): Status: Acute Code(s): J44.9 - Chronic obstructive pulmonary disease, unspecified Qualifiers: COPD type: unspecified COPD Qualified Code(s): J44.9 - Chronic obstructive pulmonary disease, unspecified (7) Current smoker: Status: Acute Code(s): F17.200 - Nicotine dependence, unspecified, uncomplicated Meds Home Medications and Allergies Home Medications Medication Instructions Recorded Confirmed Type atorvastatin 80 mg tablet 80 mg PO HS 90 days 01/06/18 04/30/24 History omeprazole 20 mg capsule,delayed 20 mg PO DAILY 90 days 01/06/18 04/30/24 History release prednisone 5 mg tablet 5 mg PO DAILY 90 days 01/06/18 04/30/24 History adalimumab 40 mg/0.8 mL 40 mg SQ WEEKLY 11/04/19 04/30/24 History subcutaneous syringe kit (Humira) metformin 500 mg tablet 500 mg PO BID #0 tabs 11/04/19 04/30/24 History tamsulosin 0.4 mg capsule 0.8 mg PO HS #0 caps 11/04/19 04/30/24 History venlafaxine 75 mg capsule,extended 75 mg PO DAILY mood 02/28/21 04/30/24 History release 24 hr verapamil 240 mg tablet,extended 240 mg PO DAILY 05/31/21 04/30/24 History release diazepam 2 mg tablet 2 mg PO HS 10/02/21 04/30/24 History losartan 100 mg tablet 100 mg PO DAILY 02/04/22 04/30/24 History acetaminophen 325 mg tablet 650 mg PO DAILY PRN Pain/fever 09/20/22 04/30/24 History (Tylenol) apixaban 5 mg (74 tabs) tablets in 5 mg PO BID #74 tabs 04/30/24 Rx a dose pack (Eliquis DVT-PE Treat 30D Start) apixaban 5 mg tablet (Eliquis) 5 mg PO BID #60 tabs 04/30/24 Rx canagliflozin 300 mg tablet 300 mg PO DAILY 04/30/24 04/30/24 History (Invokana) fluticasone 250 mcg-salmeterol 50 1 inh inhalation BID 30 days #1 ea 04/30/24 Rx mcg/dose blistr powdr for inhalation (Advair Diskus) ipratropium 20 mcg-albuterol 100 2 puff inhalation QID PRN 04/30/24 04/30/24 History mcg/actuation mist for inhalation Shortness Of Breath (Combivent Respimat) New Prescriptions to Start Prescriptions: apixaban [Eliquis] Haider Blake apixaban [Eliquis DVT-PE Treat 30D Start] Haider Blake fluticasone propion-salmeterol [Advair Diskus] Haider Blake Allergies Allergy/AdvReac Type Severity Reaction Status Date / Time No Known Allergies Allergy Verified 07/15/23 12:10 Discharge Plan Disposition Patient Disposition: Home Health Service Condition: Good Discharge Order Discharge Orders: Discharge Order (Routine); Ordered 04/30/24 Ordered By: Haider Blake Follow up Plan Follow up with: Anne Ko MD [Physician] - 05/10/24 1:00 pm Rick Barton MD [Primary Care Provider] - 05/10/24 11:00 am Prescriptions/Medication Reconciliation: New fluticasone propion-salmeterol [Advair Diskus] 250-50 mcg/dose Blister With Device 1 inh inhalation BID 30 Days Qty: 1 0RF Eliquis DVT-PE Treat 30D Start 5 mg (74 tabs) tablets,dose pack 5 mg PO BID Qty: 74 0RF Eliquis 5 mg tablet 5 mg PO BID Qty: 60 1RF Rx Instructions: start after completing the started pack Continued omeprazole 20 mg capsule,delayed release(DR/EC) 20 mg PO DAILY 90 Days Patient Comments: prednisone 5 mg tablet 5 mg PO DAILY 90 Days Patient Comments: atorvastatin 80 mg tablet 80 mg PO HS 90 Days Patient Comments: venlafaxine 75 mg capsule,extended release 24hr 75 mg PO DAILY metformin 500 mg tablet 500 mg PO BID Qty: 0 tamsulosin 0.4 mg capsule 0.8 mg PO HS Qty: 0 Humira 40 mg/0.8 mL syringe kit 40 mg SQ WEEKLY verapamil 240 mg tablet extended release 240 mg PO DAILY acetaminophen [Tylenol] 325 mg Tablet 650 mg PO DAILY PRN (Reason: Pain/fever) Invokana 300 mg tablet 300 mg PO DAILY Combivent Respimat 20-100 mcg/actuation mist 2 puff INHALATION QID PRN (Reason: Shortness Of Breath) diazepam 2 MG tablet 2 mg PO HS losartan 100 MG tablet 100 mg PO DAILY Other Ambulatory Orders: Home Medical Equipment (Routine) Location: None Selected Ordered By: Haider Blake Problem Reconciliation Problems Reviewed?: Yes Patient Discharge Instructions ACTIVITY: Continue current activity DIET: continue same diet Patient Instructions: DI for Chronic Obstructive Pulmonary Disease, DI for Deep Vein Thrombosis, DI for Pulmonary Embolism Providers Primary Care Provider: Rick Barton Admit Provider: Haider Blake Attending Provider: Haider Blake
[2024-04-30] MEDS: ENOXAPARIN 100MG/ML SYRINGE 85 MG SQ (10:33)
[2024-04-30] MEDS: humaLOG 100 UNITS/ML 10ML VIAL (SSI) SQ (10:33)
[2024-04-30 10:58] LABS: POC Glucose,Bedside 159 (70-110)
--- NOTE | 2024-04-30 11:25 | CA_ITS ---
FINAL REPORT TECHNIQUE: Color Doppler, duplex Doppler and compression sonography of the right lower extremity venous system was performed. CLINICAL HISTORY: eval extent of DVT COMPARISON: None FINDINGS: There is deep venous thrombosis present extending from the calf veins through the popliteal vein and into the proximal femoral vein. There is flow present in the right common femoral vein. IMPRESSION: Extensive deep venous thrombosis in the right leg, from the calf veins into the proximal femoral vein. The common femoral vein is patent. Reviewed, Interpreted and Dictated by Shai Rosario III, MD Transcribed by Catrachita Llanes Authenticated and . [facility]
--- NOTE | 2024-04-30 12:10 | CARE MANAGER ---
Addendum entered by Kathy Leong RN 04/30/24 12:59: Kristin accepted patient and will start services on 05/04/24 Original Note: PT recommended home health services. MD ordered home health for PT as well as walker. Patient had no preference and information was sent to [facility]. CALE N[facility]
[2024-04-30] MEDS: FLUTICASONE/SALMETEROL 250/50MCG DISKUS 1 PUFF IH (13:04)
--- NOTE | 2024-04-30 23:23 | ECG_ITS ---
APPROVED REPORT Exam: Resting ECG HR:50 bpm ECG Measurements Heart Rate 50 AXES HI 150 P -57 QRSd 103 QRS -23 QT 455 T 54 QTc 429 Conclusion ECTOPIC ATRIAL BRADYCARDIA BORDERLINE LEFT AXIS DEVIATION [QRS AXIS < -20] VOLTAGE CRITERIA FOR LVH [MEETS CRITERIA IN ONE OF: R(aVL), S(V1), R(V5), R(V5/V6)+S(V1)] NONSPECIFIC T-WAVE ABNORMALITY ABNORMAL ECG UNCONFIRMED REPORT Electronically signed by : LAMONT PITTMAN, 05/01/2024 02:22:51
--- NOTE | 2024-05-03 14:08 | CARE MANAGER ---
Called and spoke with patient regarding recent discharge. Patient stated that he has started new medication and aware of scheduled f/u appts. No concerns voiced at time of call.
== END 2024-04-30 13:42 | disposition home health service (06) ==
LOC: ER 23:42 → 2ND 04-30 00:04
PROVIDERS: Emergency Medicine; Nurse Practitioner Family; Physician Assistant; Admitting Provider Internal Medicine Adolescent Medicine; Emergency Provider Emergency Medicine; PCP Internal Medicine Adolescent Medicine; Visit Provider Internal Medicine Adolescent Medicine
DX: I26.99 Other pulmonary embolism without acute cor pulmonale (principal); M47.816 Spondylosis without myelopathy or radiculopathy, lumbar region; F17.210 Nicotine dependence, cigarettes, uncomplicated; Z87.09 Personal history of other diseases of the respiratory system; E11.42 Type 2 diabetes mellitus with diabetic polyneuropathy; N18.31 Chronic kidney disease, stage 3a; I12.9 Hypertensive chronic kidney disease with stage 1 through stage 4 chronic kidney disease, or unspecified chronic kidney disease; J44.9 Chronic obstructive pulmonary disease, unspecified; M45.9 Ankylosing spondylitis of unspecified sites in spine; E11.22 Type 2 diabetes mellitus with diabetic chronic kidney disease; Z79.84 Long term (current) use of oral hypoglycemic drugs; Z79.899 Other long term (current) drug therapy; I82.431 Acute embolism and thrombosis of right popliteal vein
CPT/HCPCS: 36415; 71275; 73562; 73701; 74177; 80053; 82550; 82962; 83735; 84484; 85025; 85378; 85610; 85651; 85730; 86140; 93005; 93971; 94640; 97162; 99285; G0378; J0131; Q9967

== ENCOUNTER 2024-07-27 08:50 | Day surgery (SDC) | payer MEDICARE, OTHER, SELFPAY ==
[2024-07-27 08:53] VITALS: BP 173/86; PULSE 59; RESP 16; TEMP 36.7; O2SAT 99; BMI 25.8
[2024-07-27 09:13] VITALS: BP 146/70; PULSE 61; RESP 18; O2SAT 98
[2024-07-27 09:15] VITALS: BP 146/70; PULSE 57; RESP 18; O2SAT 98
[2024-07-27 09:21] VITALS: BP 183/85; PULSE 55; RESP 18; O2SAT 99
--- NOTE | 2024-07-27 09:39 | EXP.PAIN.PRO ---
Procedure Date: 07/27/24 Time: 09:00 Anesthesiologist:: Ricci Hurt CRNA Complications:: None Pre-procedure Diagnosis:: Degenerative disc lumbar spine multilevels. Lumbar radiculopathy. Lumbar postlaminectomy syndrome. Post-procedure Diagnosis:: Same. Indications for Procedure:: InsultPatient is a very pleasant 68-year-old male who comes our clinic today for intrathecal pain pump interrogation and refill. Patient is currently being managed with eight 1 mg/mL at a rate of 0.1331 mg/day. He is doing very well with his current settings. He is not reporting any side effects or complications. He is not requesting any changes. He rates his pain today 2/10. Patient is awake alert [place] x 3. In no acute distress. Flexion-extension lumbar spine somewhat guarded secondary to pain. Deep tendon reflexes upper lower extremities normal. Motor strength upper and lower extremities normal. There is no gross sensory deficit. Gait is normal. Procedure Details:: Details of the procedure explained to the patient. The patient taken procedure room patient sitting position. They over the pumps cleansed using chlorhexidine as a cleansing solution. The pump was interrogated. The pump was accessed with ease using a 22-gauge inch and a half needle. 7 mL of solution was withdrawn discarded appropriate. The pump was then filled with 20 cc of solution containing morphine sulfate 1 mg/mL. The rate will remain the same. 0.1331 mg/day. Patient tolerated procedure without difficulty. There are no complications. Plan and Disposition:: Patient was discharged without incident.
== END 2024-07-27 09:28 | disposition home or self-care (01) ==
LOC: SC.PAINP 08:51
PROVIDERS: PCP Internal Medicine Adolescent Medicine; Visit Provider Nurse Anesthetist, Certified Registered
DX: M51.36 Other intervertebral disc degeneration, lumbar region (principal); M96.1 Postlaminectomy syndrome, not elsewhere classified
CPT/HCPCS: 95991

== ENCOUNTER 2024-08-12 12:33 | Outpatient (CLI) | payer MEDICARE, OTHER, SELFPAY | END 2024-08-12 23:59 | disposition home or self-care (01) | LOC: RT 12:34 | PROVIDERS: PCP Internal Medicine Adolescent Medicine; Visit Provider Internal Medicine Pulmonary Disease | DX: R06.09 Other forms of dyspnea (principal) | CPT/HCPCS: 94060; 94726; 94729 ==

== ENCOUNTER 2024-10-15 13:23 | Outpatient (CLI) | payer MEDICARE, OTHER, SELFPAY ==
--- NOTE | 2024-10-15 13:24 | CT_ITS ---
FINAL REPORT TECHNIQUE: High-resolution axial images were obtained through the chest without contrast. Supine inspiration, supine expiration and prone inspiration sequences were also obtained. This study was performed with techniques to keep radiation doses as low as reasonably achievable (ALARA). Individualized dose reduction techniques using automated exposure control or adjustment of mA and/or kV according to the patient's size were employed. CLINICAL HISTORY: high resolution chest x3 supine inspiration supine expiration prone inspiration SOA FINDINGS: There is significant kyphosis. Calcified right paratracheal lymph nodes are seen. There are small noncalcified nodules bilaterally measuring up to 3 mm on the right and 4 mm on the left. This is best seen on image 12 of series 2. There are other smaller scattered lower lobe nodules measuring up to 4 mm in the right lower lobe. This is best seen on image 31 of series 2. Small cluster in the left upper lobe appear to be new from prior exam. Remaining nodules are stable. There is no pleural or pericardial effusion. Heart is normal in size. There is no pneumothorax. Limited imaging of the upper abdomen demonstrates postoperative change of cholecystectomy. There is no evidence of air trapping. IMPRESSION: Multiple bilateral pulmonary nodules including new nodules in the left upper lobe favored to be postinflammatory. Recommend 6-month follow-up. No evidence of air trapping. Reviewed, Interpreted and Dictated by Aravind Allen MD Transcribed by Laurita Mccord Authenticated and [facility]
== END 2024-10-15 23:59 | disposition home or self-care (01) ==
LOC: RAD 13:24
PROVIDERS: PCP Internal Medicine Adolescent Medicine; Visit Provider Internal Medicine Pulmonary Disease
DX: J84.9 Interstitial pulmonary disease, unspecified (principal)
CPT/HCPCS: 71250

== ENCOUNTER 2024-10-26 09:45 | Day surgery (SDC) | payer MEDICARE, OTHER, SELFPAY ==
[2024-10-26 10:10] VITALS: BP 114/64; PULSE 68; RESP 16; TEMP 36.6; O2SAT 100; BMI 23.8
[2024-10-26 10:35] VITALS: BP 155/77; PULSE 69; RESP 18; O2SAT 95
[2024-10-26 10:36] VITALS: BP 155/77; PULSE 69; RESP 18; O2SAT 95
[2024-10-26 10:48] VITALS: BP 126/70; PULSE 61; RESP 16; O2SAT 99
--- NOTE | 2024-10-26 11:00 | P.PCN_ITS ---
Procedure Date: 10/26/24 Time: 10:30 Anesthesiologist:: Ricci Hurt CRNA Complications:: None Pre-procedure Diagnosis:: Degenerative disc lumbar spine multilevels. Lumbar radiculopathy. Lumbar postlaminectomy syndrome. Post-procedure Diagnosis:: Same. Indications for Procedure:: Patient is a pleasant 68-year-old male who comes our clinic today for intrathecal pain pump interrogation and refill. The patient currently being managed with morphine sulfate 1 mg/mL. His rate is 0.1331 mg/day. He is not reporting side effects or complications. He is not requesting any changes. Patient is awake alert [place] x 3. No acute distress. Flexion-extension lumbar spine somewhat guarded secondary to pain. Deep tendon reflexes upper and lower extremities normal. Motor strength upper lower extremities normal. There is no gross sensory deficit. Gait is normal. Procedure Details:: Details of the procedure explained to the patient. The patient taken procedure room placed in sitting position. They over the pumps cleansed using chlor hexidine as a cleansing solution. The pump was interrogated. The pump was accessed with ease using a 22-gauge inch and half needle. 7 mL of solution was withdrawn discarded appropriate. The pump was then filled with 20 cc of solution containing morphine sulfate 1 mg/mL. No change in pump rate. Patient tolerated procedure without difficulty. There are no complications. Plan and Disposition:: Patient was discharged without incident.
== END 2024-10-26 10:48 | disposition home or self-care (01) ==
LOC: SC.PAINP 09:46
PROVIDERS: PCP Internal Medicine Adolescent Medicine; Visit Provider Nurse Anesthetist, Certified Registered
DX: M51.16 Intervertebral disc disorders with radiculopathy, lumbar region (principal); M96.1 Postlaminectomy syndrome, not elsewhere classified
CPT/HCPCS: 95991

== ENCOUNTER 2024-11-18 10:23 | Observation (INO) | payer MEDICARE, OTHER, SELFPAY ==
[2024-11-18] VITALS (16 sets, daily range): BP systolic 143–177; BP diastolic 78–95; PULSE 59–79; RESP 12–20; TEMP 36.5–37; O2SAT 98–100; BMI 22.9
--- NOTE | 2024-11-18 10:34 | ECG_ITS ---
APPROVED REPORT Exam: Resting ECG HR:69 bpm ECG Measurements Heart Rate 69 AXES [place] 145 P 19 QRSd 105 QRS -34 QT 411 T 34 QTc 430 Conclusion SINUS RHYTHM WITH SINUS ARRHYTHMIA LEFT AXIS DEVIATION Electronically signed by : [facility], 11/20/2024 15:12:49
--- NOTE | 2024-11-18 10:49 | ED_ITS ---
Discharge Plan Disposition Patient Disposition: Admitted Chief Complaint: Weakness Prescriptions Prescriptions: No Action omeprazole 20 mg capsule,delayed release(DR/EC) 20 mg PO DAILY 90 Days Patient Comments: prednisone 5 mg tablet 5 mg PO DAILY 90 Days Patient Comments: atorvastatin 80 mg tablet 80 mg PO HS 90 Days Patient Comments: venlafaxine 75 mg capsule,extended release 24hr 75 mg PO DAILY metformin 500 mg tablet 500 mg PO BID Qty: 0 tamsulosin 0.4 mg capsule 0.8 mg PO HS Qty: 0 Humira 40 mg/0.8 mL syringe kit 40 mg SQ WEEKLY verapamil 240 mg tablet extended release 240 mg PO DAILY nicotine (polacrilex) 2 mg lozenge 2 mg buccal Q6H PRN (Reason: nicotine cravings) Qty: 81 0RF fluticasone propion-salmeterol [Advair HFA] 115-21 mcg/actuation HFA aerosol inhaler See Rx Instructions .ROUTE .COMPLEX Qty: 12 2RF Dose Instruction: INHALE TWO PUFFS BY MOUTH TWICE DAILY Rx Instructions: INHALE TWO PUFFS BY MOUTH TWICE DAILY albuterol sulfate 90 mcg/actuation HFA aerosol inhaler 2 inh inhalation QID PRN (Reason: shortness of breath or wheezing) 90 Days Qty: 8.5 2RF acetaminophen [Tylenol] 325 mg Tablet 650 mg PO DAILY PRN (Reason: Pain/fever) Invokana 300 mg tablet 300 mg PO DAILY Combivent Respimat 20-100 mcg/actuation mist 2 puff INHALATION QID PRN (Reason: Shortness Of Breath) Eliquis DVT-PE Treat 30D Start 5 mg (74 tabs) tablets,dose pack 5 mg PO BID Qty: 74 0RF Eliquis 5 mg tablet 5 mg PO BID Qty: 60 1RF Rx Instructions: start after completing the started pack diazepam 2 MG tablet 2 mg PO HS losartan 100 MG tablet 100 mg PO DAILY Referrals Follow up/Referrals: Rick Barton MD [Primary Care Provider] - See instructions Clinical Impressions Clinical Impression: Adult failure to thrive, Liver mass, left lobe Print Language Print Language: Peruvian Discharge ED Provider: Salvador Kim General Adult HPI General Chief complaint: Weakness Stated complaint: weak body aches Time Seen by Provider: 11/18/24 10:32 History of Present Illness HPI narrative: Please note that above description of symptoms, in this electronic medical record under categorization of recalled from ER triage doctor by RN are reflective of an initial nursing assessment, however, is not reflective of my full history and physical exam that was personally taken and clarified. Consequentially, this preceding description of symptoms, which may include the patient's categorized chief complaint in the EMR, do not reflect my personal clinical impression, and the ultimate description of history of present illness and patient stated complaints should be deferred to this section of the note. Unless stated otherwise or congruent with this section of the note, additional signs, symptoms, or incongruence should be interpreted as inaccurate with my clinical impression. Related Data Home Medications ?Medication ?Instructions ?Recorded ?Confirmed atorvastatin 80 mg tablet 80 mg PO HS 90 days 01/06/18 10/25/24 omeprazole 20 mg capsule,delayed 20 mg PO DAILY 90 days 01/06/18 10/25/24 release prednisone 5 mg tablet 5 mg PO DAILY 90 days 01/06/18 10/25/24 adalimumab 40 mg/0.8 mL 40 mg SQ WEEKLY 11/04/19 10/25/24 subcutaneous syringe kit (Humira) metformin 500 mg tablet 500 mg PO BID #0 tabs 11/04/19 10/25/24 tamsulosin 0.4 mg capsule 0.8 mg PO HS #0 caps 11/04/19 10/25/24 venlafaxine 75 mg capsule,extended 75 mg PO DAILY mood 02/28/21 10/25/24 release 24 hr verapamil 240 mg tablet,extended 240 mg PO DAILY 05/31/21 10/25/24 release diazepam 2 mg tablet 2 mg PO HS 10/02/21 10/25/24 losartan 100 mg tablet 100 mg PO DAILY 02/04/22 10/25/24 acetaminophen 325 mg tablet 650 mg PO DAILY PRN Pain/fever 09/20/22 10/25/24 (Tylenol) canagliflozin 300 mg tablet 300 mg PO DAILY 04/30/24 10/25/24 (Invokana) ipratropium 20 mcg-albuterol 100 2 puff inhalation QID PRN 04/30/24 10/25/24 mcg/actuation mist for inhalation Shortness Of Breath (Combivent Respimat) Previous Rx's ?Medication ?Instructions ?Recorded apixaban 5 mg (74 tabs) tablets in 5 mg PO BID #74 tabs 04/30/24 a dose pack (Eliquis DVT-PE Treat 30D Start) apixaban 5 mg tablet (Eliquis) 5 mg PO BID #60 tabs 04/30/24 nicotine (polacrilex) 2 mg buccal 2 mg buccal Q6H PRN nicotine 08/12/24 lozenge cravings #81 ea fluticasone propionate 115 See Rx Instructions .Route 08/30/24 mcg-salmeterol 21 mcg/actuation .COMPLEX #12 grams HFA inhaler (Advair HFA) albuterol sulfate 90 mcg/actuation 2 inh inhalation QID PRN shortness 10/06/24 aerosol inhaler of breath or wheezing 90 days #8.5 grams Allergies Allergy/AdvReac Type Severity Reaction Status Date / Time No Known Allergies Allergy Verified 10/25/24 15:54 [facility] Disclaimer: The information contained in this section may have been updated after the patient was seen, as this information can be updated by other users. Medical History Tobacco dependence Encounter for screening for malignant neoplasm of lung Pulmonary emphysema Ankylosing spondylitis History of COPD Smoking greater than 30 pack years Kidney stone History of arthritis Hyperlipemia Hypertension Diabetes Degenerative disc disease Surgical History History of surgery penelope elbow sx History of lumbar fusion History of appendectomy History of cholecystectomy Family History Other Family history of stroke Social History Smoking Status: Current every day smoker tobacco type: cigarettes packs per day: 1 second hand exposure: No alcohol intake: never substance use type: denies use current occupational status: retired Travel in the last 8 weeks: None household members: spouse housing: house current occupational exposures/hazards: No caffeine: Yes Have you lived/traveled outside [place] in past 30 days?: No Contact w/someone who lives/traveled outside US past 30 days?: No Exposure to someone with infectious disease in past 14 days?: No Do you have a fever (greater than 100.4 F or 38 C)?: No Have you tested positive for COVID-19: No Exposed to someone with COVID-19 in past 14 days?: No Do you have a sore throat?: No Do you have a cough?: No Do you have any weakness?: No Do you have any diarrhea?: No Are you experiencing any unusual bleeding?: No Do you have any muscle aches/pain?: No Do you have any abdominal pain?: No Are you experiencing loss of taste or smell?: No Other Medical History Have you received the Flu Vaccine for this season: No Have you received the Pneumonia Vaccine: No ROS Obtained: Yes All systems reviewed & no additional complaints except as documented Physical Exam General General appearance: alert Head Head exam: atraumatic and normocephalic Eye Eye exam: Present normal appearance, PERRL and EOMI Neck Neck exam: Present normal inspection, full ROM and trachea midline Respiratory Respiratory exam: Absent respiratory distress, wheezes, stridor, accessory muscle use or prolonged expiratory phase Cardiovascular Cardiovascular exam: Present other (Pulses equal symmetric in upper and lower extremities) Abdominal Exam Abdominal exam: Present soft; Absent distention, tenderness or pulsatile mass Extremities Exam Extremities exam: Absent edema Neurological Exam Neurological exam: Present alert, oriented X3 and CN II-XII intact; Absent motor sensory deficit Skin Skin exam: Present warm and dry; Absent diaphoresis or erythema Medical Decision Making Medical Records Medical records reviewed: Yes I reviewed the patient's medical records. Screening: Per USPSTF and CDC recommendations, given the prevalence of disease in our region, it is our hospital?s policy to screen for HIV and viral Hepatitis for all patients aged 18 and over and those with ongoing risk factors. [place] Inquiry Pt receiving controlled substance: No [place] was queried for this patient: No Vital Signs: 11/18/24 10:24 11/18/24 11:00 11/18/24 11:30 Temperature 98.6 F Temperature Source Oral Pulse Rate 65 62 Pulse Rate [Left Radial] 77 Respiratory Rate 16 16 14 Blood Pressure 164/91 H 162/92 H Blood Pressure [Right Arm] 162/82 H Blood Pressure Mean Blood Pressure Mean [Right Arm] 108 Blood Pressure Source [Right Arm] Automatic Cuff Blood Pressure Position [Right Arm] Sitting 02 Sat by Pulse Oximetry 100 99 99 Oxygen Delivery Method Room Air Room Air Room Air 11/18/24 12:00 11/18/24 12:30 Temperature Temperature Source Pulse Rate 62 64 Pulse Rate [Left Radial] Respiratory Rate 15 14 Blood Pressure 177/90 H 163/91 H Blood Pressure [Right Arm] Blood Pressure Mean 119 115 Blood Pressure Mean [Right Arm] Blood Pressure Source [Right Arm] Blood Pressure Position [Right Arm] 02 Sat by Pulse Oximetry 100 98 Oxygen Delivery Method Lab Data Lab Results 11/18/24 10:55: WBC 13.8 H, RBC 4.04 L, Hgb 10.9 L, Hct 34.8 L, MCV 86.1, MCH 27.0, MCHC 31.3 L, RDW 14.6, Plt Count 347, MPV 10.1, Neut % (Auto) 88.2 H, L ymph % (Auto) 5.2 L, [place] % (Auto) 4.5, Eos % (Auto) 1.2, Baso % (Auto) 0.4, N eut # (Auto) 12.2 H, Lymph # (Auto) 0.7, [place] # (Auto) 0.6, Eos # (Auto) 0.2, Baso # (Auto) 0.1, Total Counted 100, Neutrophils % (Manual) 92 H, Lymphocytes % (Manual) 4 L, Monocytes % (Manual) 2, Eosinophils % (Manual) 2, Platelet Estimate Normal, Hypochromasia 1+, PT 11.8, INR 1.06, APTT 27.6, Sodium 136, Potassium 4.0, Chloride 99, Carbon Dioxide 28, Anion Gap 13.0, BUN 14, Creatinine 1.10, Estimated Creat Clear 65, Estimated GFR 66, Est GFR ( Amer) 80, Glucose 120 H, Calcium 9.6, Magnesium 1.4 L, Total Bilirubin 0.8, AST 44, ALT 21, Alkaline Phosphatase 174 H, Total Creatine Kinase 37 L, Troponin I < 0.01, NT-Pro-B Natriuret Pep 3050 H, Total Protein 7.1, Albumin 3.9, Globulin 3.2, Albumin/Globulin Ratio 1.2, Triglycerides 102, Cholesterol 80 L, LDL Cholesterol Direct < 30.00 L, VLDL Cholesterol 20, HDL Cholesterol 36 L, Cholesterol/HDL Ratio 2.2, Lipase 75, Procalcitonin 0.952, TSH 2.01, Thyroxine (T4) 10.3 11/18/24 12:12: Lactate 2.7 H 11/18/24 10:55 11/18/24 10:55 Orders (Tests/Meds): ED MEDICATIONS Generic Name Dose Route Start Last Admin Trade Name Freq PRN Reason Stop Dose Admin Lactated Ringer's 1,000 mls @ 999 mls/hr 11/18/24 12:49 11/18/24 13:11 Lactated Ringer's 1000 Ml Bag IV 11/18/24 13:49 999 mls/hr .Q1H1M ONE Administration Discontinued Medications Generic Name Dose Route Start Last Admin Trade Name Freq PRN Reason Stop Dose Admin Magnesium Sulfate 2 gm in 50 mls @ 50 mls/hr 11/18/24 12:42 11/18/24 13:11 Magnesium Sulfate 2gm/50ml Premix IV 11/18/24 13:41 50 mls/hr ONCE ONE Administration Iopamidol 75 ml 11/18/24 11:49 11/18/24 11:50 Iopamidol-370 (76%);100ml Bottle IV 11/18/24 11:50 75 ml ONCE ONE Administration Magnesium Oxide 800 mg 11/18/24 12:42 11/18/24 13:11 Magnesium Oxide 400mg Tablet PO 11/18/24 12:43 800 mg ONCE ONE Administration Sodium Chloride 10 ml 11/18/24 11:49 11/18/24 11:50 Sodium Chloride 0.9% 10ml Syr (Rad Only) IV 11/18/24 11:50 10 ml ONCE ONE Administration ORDERS Category Date Time Status CT abdomen pelvis w con Stat Cat Scan 11/18/24 10:[address] chest w con Stat Cat Scan 11/18/24 10:51 Completed CK [Creatine Kinase] Stat Lab 11/18/24 10:55 Completed Complete Blood Count Auto Diff Stat Lab 11/18/24 10:55 Completed Comprehensive Metabolic Panel Stat Lab 11/18/24 10:55 Completed HIV (1&2) Antibody Rapid Stat Lab 11/18/24 10:55 Received Hep C Ab with Reflex to RNA Stat Lab 11/18/24 10:55 Received Lactic Acid Stat Lab 11/18/24 12:12 Completed Lipase Stat Lab 11/18/24 10:55 Completed Lipid Panel Stat Lab 11/18/24 10:55 Completed Magnesium Stat Lab 11/18/24 10:55 Completed NT Pro Brain Natriuretic Pep. Stat Lab 11/18/24 10:55 Completed PT INR [Prothrombin Time INR] Stat Lab 11/18/24 10:55 Completed PTT [Activated Partial Thrombo Time] Stat Lab 11/18/24 10:55 Completed Procalcitonin Stat Lab 11/18/24 10:55 Completed T4 (Thyroxine) Stat Lab 11/18/24 10:55 Completed TSH [Thyroid Stimulating Hormone] Stat Lab 11/18/24 10:55 Completed Troponin I Q3H Lab 11/18/24 14:00 Ordered Troponin I Q3H Lab 11/18/24 17:00 Ordered Troponin I Stat Lab 11/18/24 10:55 Completed Urinalysis and Microscopic Stat Lab 11/18/24 10:54 Ordered Medical Decision Narrative: 69-year-old male presenting with multiple complaints. Patient states that he has had 60 pound weight loss over the last 6 months, decreased oral intake, decreased appetite, but is primarily concerned about the shortness of breath over the last 3 to 4 days. No cough associated with it. It is exertional. Not positional. No lower extremity edema. No chest pain, abdominal pain, diarrhea, constipation. States that he is still smoking and primarily vaping, but has largely discontinued that due to symptoms getting worse over the past few months. History was obtained via conversation with patient and . Should be noted the patient has a history of continued tobacco dependence, COPD, ankylosing spondylitis on antirheumatic drug, diabetes, hypertension, hyperlipidemia, as well as previous PE on Eliquis. Numerous comorbidities likely complicating current clinical picture. On arrival, patient hemodynamically stable, alert, [oriented x4, ][appropriate, ]GCS [15], moving all extremities spontaneously, pupils equal and reactive to light. Full physical exam performed and significant for fatigued appearing male no acute distress. Nontachypneic, nontachycardic. Lungs are clear bilaterally without wheezes or focal breath sounds. Abdomen is soft, nontender, nonperitoneal. No overlying skin changes. Dry mucous membranes. Differential includes intrathoracic malignancy, intra abdominal malignancy, rheumatologic illness, metabolic abnormality, endocrinologic abnormality, CAD, CHF, pneumonia, sepsis, among others. Patient placed on continuous cardiac monitoring and continuous pulse ox with initial blood pressure 162/82, heart rate 77, saturation 100% on room air. [Independent interpretation of EKG shows] sinus rhythm with left axis deviation. Ventricular rate 69, DE 145, QRS 105, QTc 430. No acute ischemic change. Patient was given IV fluids for symptomatic management[ and correction of underlying abnormalities]. Workup independently interpreted and significant for leukocytosis 13,000 with neutrophilia. Also has lactate elevation 2.7. 2 g ceftriaxone given. Mildly elevated alkaline phosphatase 174. Troponin negative, BNP newly elevated 3000 up from nearly normal baseline in the past. Thyroid studies normal. Magnesium low, this was repleted IV and p.o. On independent interpretation of imaging, no acute findings on CT chest, however patient does have concern for liver mass on abdominal CT with associated cirrhotic changes and ascites. See radiology read for full review of final results. On reevaluation, patient sleeping. Conversation had with patient and patient's family, ultimately, patient to be admitted. Interactive discussion had with hospitalist here, agreeable to admission for MRI, echo, and further development of oncologic plan. Because patient high risk for clinical decompensation, deemed appropriate for inpatient admission. Results were relayed to patient who voiced understanding and patient was agreeable to inpatient admission and management. Patient was admitted to the hospital for further definitive management. Undercollar Baster disclaimer Much of this encounter note is an electronic telesales specialist spoken language to printed text. Electronic telesales specialist of the spoken language may permit errors. Although I have reviewed the note, some errors may still exist. Critical Care Critical Care Time Critical Care Time: Yes (GI) Attestation: On 11/18/24, the high probability of a clinically significant, sudden or life threatening deterioration of the following system(s) required my full and direct attention, intervention and personal management. The time I documented below is in addition to time spent performing reported procedures but includes the following listed in this critical care notation. Total Time Total Critical Care Time: 35
--- NOTE | 2024-11-18 10:50 | CT_ITS ---
FINAL REPORT TECHNIQUE: After the administration of oral and intravenous contrast, axial images were obtained through the abdomen and pelvis by computed tomography. The study was performed with techniques to keep radiation dose as low as reasonably achievable, (ALARA). Individual dose reduction techniques using automated exposure control or adjustment of mA and/or kV according to the patient's size were employed. CLINICAL HISTORY: 60lb weight loss 6mos, malignancy screen COMPARISON: 09/05/2022 FINDINGS: Abdomen: The liver has a lobular peripheral margin, new since prior. There is a small amount of ascites surrounding the liver. There is a heterogeneous low-attenuation mass in the left lobe of the liver measuring 4.3 x 5.0 cm. Finding is well-seen on images 25 through 31 of series 4. The gallbladder is surgically absent. The spleen is unremarkable. The adrenals are normal. The pancreas is unremarkable. There are multiple small retroperitoneal lymph nodes measuring up to 2.3 cm in greatest dimension. The kidneys enhance appropriately. The aorta is normal in caliber. Pelvis: The appendix is not identified. The urinary bladder is unremarkable. There are moderate changes of degenerative disc disease at L5-S1. There is moderate to advanced osteoarthritis of the hip joint spaces bilaterally. IMPRESSION: Interval development of cirrhotic changes of the liver with interval development of ascites. New heterogeneous mass in the left lobe of the liver highly concerning for underlying neoplasia. Based on location, this would be difficult to sample percutaneously. Recommend pre and post MRI and/or PET CT for further evaluation. Retroperitoneal and periaortic adenopathy, new since previous. Reviewed, Interpreted and Dictated by Aravind Allen MD Transcribed by Brenda Mcpherson Authenticated and [facility]
--- NOTE | 2024-11-18 10:51 | CT_ITS ---
FINAL REPORT TECHNIQUE: Routine axial images were obtained from the lung apices to below the diaphragm following IV contrast administration. Individualized dose reduction techniques using automated exposure control or adjustment of the mA and/or kV according to the patient size were employed. CLINICAL HISTORY: 60lb weight loss 6mos, malignancy screen COMPARISON: 10/15/2024 FINDINGS: There is a partially calcified right paratracheal lymph node measuring up to 2.5 cm. There is a noncalcified subcarinal lymph node measuring up to 2.7 cm. Multiple small calcified and noncalcified nodules are seen. Individual nodules measure up to 4 mm. Previously noted focus in the right upper lobe on image 21 of series 5 now appears partially calcified. Nodules are favored to be postinflammatory. No pleural or pericardial effusion is seen. IMPRESSION: Nodules as above, favor postinflammatory. Reviewed, Interpreted and Dictated by Aravind Allen MD Transcribed by Brenda Mcpherson Authenticated and [facility]
--- NOTE | 2024-11-18 11:03 | PC.NURSE ---
Pt. laying in bed. no needs at this time. Call light in reach.
[2024-11-18 11:15] LABS: Basophils % 0.4 % (0.1-2.0); Eosinophils # 0.2 K/mm3 (0.0-0.4); Eosinophils % 1.2 % (0.1-12.0); Hematocrit 34.8 % (42.0-52.0); Hemoglobin 10.9 g/dL (14.1-18.0); Lymphocytes # 0.7 K/mm3 (0.7-4.5); Lymphocytes % 5.2 % (10-50); Mean Corpuscular HGB Conc 31.3 g/dL (31.8-35.4); Mean Corpuscular Volume 86.1 fl (80-94); Mean Platelet Volume 10.1 fl (7.4-10.4); Monocytes # 0.6 K/mm3 (0.1-1.0); Monocytes % 4.5 % (1.7-9.3); Neutrophils # 12.2 K/mm3 (1.8-7.8); Neutrophils % 88.2 % (37.0-80.0); Platelet Count 347 K/mm3 (142-424); Red Blood Count 4.04 M/mm3 (4.60-6.20); Red Cell Distribution Width 14.6 % (11.5-17.5); White Blood Count 13.8 K/mm3 (4.8-10.8)
[2024-11-18 11:16] LABS: Basophils # 0.1 K/mm3 (0-0.2); MANUAL DIFFERENTIAL MANUAL DIFFERENTIAL (MANUAL DIFF)
[2024-11-18 11:20] LABS: Alanine Aminotransferase 21 U/L (12-78); Albumin Level 3.9 g/dl (3.5-5.0); Albumin/Globulin Ratio 1.2 (1.1-1.8); Alkaline Phosphatase 174 U/L (38-126); Aspartate Amino Transferase 44 U/L (17-59); Bilirubin,Total 0.8 mg/dl (0.2-1.3); Blood Urea Nitrogen 14 mg/dl (9-20); Calcium 9.6 mg/dl (8.4-10.2); Carbon Dioxide 28 mmol/L (22.0-30.0); Chloride 99 mmol/L (98-107); Creatine Kinase 37 U/L (55-170); Creatinine Clearance Estimated 65 mL/min (50-200); Estimated Glomerular Filt Rate 66 ml/min (>60); GFR (African American) 80 ML/MIN (>60); Globulin 3.2 g/dL (1.3-3.2); Glucose 120 mg/dl (74-100); INR 1.06 (0.9-1.1); Prothrombin Time 11.8 seconds (10.1-12.5); Sodium 136 mmol/L (136-145); Total Protein,Serum 7.1 g/dl (6.3-8.2)
[2024-11-18 11:21] LABS: Chol/HDL Ratio 2.2 (1-3.5); Cholesterol 80 mg/dl (140-200); HDL Cholesterol 36 mg/dl (40-60); Lipase 75 U/L (23-300); Magnesium 1.4 mg/dl (1.6-2.3); Triglycerides 102 mg/dl (30-150); VLDL Cholesterol 20 mg/dL (0-40)
[2024-11-18 11:26] LABS: Activated Partial Thrombo Time 27.6 seconds (22.8-30.6)
[2024-11-18 11:29] LABS: NT Pro Brain Natriuretic Pep. 3050 pg/mL (0-125)
[2024-11-18 11:32] LABS: Direct LDL Cholesterol < 30.00 mg/dL (100-129); Troponin I < 0.01 ng/ml (0.00-0.034)
[2024-11-18 11:36] LABS: T4 (Thyroxine) 10.3 ug/dl (5.53-11.0)
[2024-11-18 11:37] LABS: Procalcitonin 0.952 ng/mL (0.0-2.0)
[2024-11-18 11:40] LABS: Eosinophils % 2 % (0-3); Hypochromasia 1+; Lymphocytes % 4 % (10-50); Monocytes % 2 % (2-9); Neutrophils % 92 % (42-76); Platelet Estimate Normal; Total Cells Counted 100
--- NOTE | 2024-11-18 11:46 | PC.NURSE ---
PT AT CT
[2024-11-18 11:49] LABS: Thyroid Stimulating Hormone 2.01 uIU/mL (0.465-4.68)
[2024-11-18] MEDS: IOPAMIDOL-370 (76%);100ML BOTTLE 75 ML IV (11:50)
[2024-11-18] MEDS: SODIUM CHLORIDE 0.9% 10ML SYR (RAD ONLY) 10 ML IV ×2 (11:50→16:37)
[2024-11-18 12:46] LABS: Lactic Acid 2.7 mmol/L (0.7-2.1)
--- NOTE | 2024-11-18 13:03 | PC.NURSE ---
DR PEOPLES AT BEDSIDE UPDATING FAMILY AND PT
[2024-11-18] MEDS: MAGNESIUM OXIDE 400MG TABLET 800 MG PO (13:11)
[2024-11-18] MEDS: MAGNESIUM SULFATE IN WATER 2 GM/50 ML PIGGYBACK IV ×2 (13:11→18:20)
[2024-11-18] MEDS: LACTATED RINGERS 1000ML 1,000 ML 999 ML IV (13:11)
--- NOTE | 2024-11-18 13:37 | PC.NURSE ---
DR PEOPLES SPEAKING WITH DR TEIXEIRA
[2024-11-18 13:48] LABS: Microscopic, Urine URINE MICROSCOPIC (MICROSCOPIC)
[2024-11-18 13:53] LABS: Appearance,Urine CLEAR (Clear); Bilirubin,Urine Negative (Negative); Blood, Urine Negative (Negative); Color,Urine YELLOW (Yellow); Glucose,Urine (UA) 3+ (Negative); Ketones,Urine Negative (Negative); Leukocyte Esterase,Urine Negative (Negative); Nitrate,Urine Negative (Negative); PH,Urine 6.5 (5.0-8.5); Protein,Urine TRACE (Negative); Urobilinogen,Urine 0.2 EU/dl (0.2)
--- NOTE | 2024-11-18 14:03 | P.HP_ITS ---
History of Present Illness *Admission Date: 11/18/24 *Reason for visit:: Unintentional weight loss, fatigue *History of present illness: Mr. Lopes is a pleasant 69-year-old male who presents to the ER because of worsening fatigue and poor p.o. intake. States he has lost about 60 pounds over the last 6 to 9 months. He has been having decreasing oral intake with increased intolerance of solid food. Appetite has been decreased with intermittent nausea and diarrhea. Having occasional night sweats. Feeling more dyspneic with exertion over the past several days. told him he the needed to come to the ER for evaluation or go see his doctor. On presentation, patient is ill-appearing. Review of chart shows that he is dropped from 102 kilograms this time last year to 72 kg today. Denies any chest pain, syncope, focal neurologic symptoms. Denies any increased swelling in his abdomen. Does admit to smoking and has smoked for several decades. Has been cutting back lately. Does not drink regularly, has not had a beer in years. Does have a history of COPD, ankylosing spondylitis, diabetes, hypertension and hyperlipidemia. Currently on anticoagulation for previous blood clots. On further interview, patient admits to being told he had a fatty liver about a decade ago. Workup in the ER with mild lab abnormalities including BNP of 3000, marginal elevation of alkaline phosphatase above upper limit of normal. Otherwise coagulation studies, kidney function, bilirubin, AST, ALT all normal. Mild anemia with hemoglobin of 11. White count 13 but no focal source of infection on imaging. CT of abdomen did show however concern for a liver mass. Medicine was consulted for further workup of patient's fatigue, unexplained weight loss, and liver mass. MRI ordered at time of admission. Formal read still pending. Patient states he has been having an increased difficulty with solids and occasionally with liquids. Has had a poor appetite. is at bedside helps supplement history. She was worried about his progressive fatigue and wanted him to be evaluated. He is alert and oriented x 4. Interested in trying to eat the tray that was placed in front of him for dinner. Stable on room air. Blood pressure mildly elevated with systolics in the 160s. No acute complaints at this time. Of note, A1c 5.3. Diabetes very well-controlled. Recently started on Invokana per his report. [facility] Disclaimer: The information contained in this section may have been updated after the patient was seen, as this information can be updated by other users. Medical History Tobacco dependence Encounter for screening for malignant neoplasm of lung Pulmonary emphysema Ankylosing spondylitis History of COPD Smoking greater than 30 pack years Kidney stone History of arthritis Hyperlipemia Hypertension Diabetes Degenerative disc disease Surgical History History of surgery History of lumbar fusion History of appendectomy History of cholecystectomy Family History Other Family history of stroke Social History Smoking Status: Current every day smoker tobacco type: cigarettes packs per day: 1 second hand exposure: No alcohol intake: never substance use type: denies use current occupational status: retired Travel in the last 8 weeks: None household members: spouse housing: house current occupational exposures/hazards: No caffeine: Yes Have you lived/traveled outside [place] in past 30 days?: No Contact w/someone who lives/traveled outside US past 30 days?: No Exposure to someone with infectious disease in past 14 days?: No Do you have a fever (greater than 100.4 F or 38 C)?: No Have you tested positive for COVID-19: No Exposed to someone with COVID-19 in past 14 days?: No Do you have a sore throat?: No Do you have a cough?: No Do you have any weakness?: No Do you have any diarrhea?: No Are you experiencing any unusual bleeding?: No Do you have any muscle aches/pain?: No Do you have any abdominal pain?: No Are you experiencing loss of taste or smell?: No Other Medical History Have you received the Flu Vaccine for this season: No Have you received the Pneumonia Vaccine: No Review of Systems Review of Systems Review of systems (narrative): 14 point review of systems performed, pertinent positives and negatives as per HPI Meds Home Medications and Allergies Home Medications ?Medication ?Instructions ?Recorded ?Confirmed ?Type atorvastatin 80 mg tablet 80 mg PO HS 90 days 01/06/18 11/18/24 History omeprazole 20 mg capsule,delayed 20 mg PO DAILY 90 days 01/06/18 11/18/24 History release prednisone 5 mg tablet 5 mg PO DAILY 90 days 01/06/18 11/18/24 History metformin 500 mg tablet 500 mg PO BID #0 tabs 11/04/19 11/18/24 History tamsulosin 0.4 mg capsule 0.8 mg PO HS #0 caps 11/04/19 11/18/24 History venlafaxine 75 mg capsule,extended 75 mg PO DAILY 02/28/21 11/18/24 History release 24 hr verapamil 240 mg tablet,extended 240 mg PO DAILY 05/31/21 11/18/24 History release losartan 100 mg tablet 100 mg PO DAILY 02/04/22 11/18/24 History apixaban 5 mg tablet (Eliquis) 5 mg PO BID #60 tabs 04/30/24 11/18/24 Rx canagliflozin 300 mg tablet 300 mg PO DAILY 04/30/24 11/18/24 History (Invokana) ipratropium 20 mcg-albuterol 100 2 puff inhalation QID PRN 04/30/24 11/18/24 History mcg/actuation mist for inhalation Shortness Of Breath (Combivent Respimat) albuterol sulfate 90 mcg/actuation 2 inh inhalation QIDP PRN 11/18/24 11/18/24 History aerosol inhaler shortness of breath or wheezing fluticasone propionate 115 2 puff inhalation BID 11/18/24 11/18/24 History mcg-salmeterol 21 mcg/actuation HFA inhaler (Advair HFA) morphine (PF) 1 mg/mL injection See Rx Instructions .Route 11/18/24 11/18/24 History solution .COMPLEX CONTINUOUS PUMP nicotine (polacrilex) 2 mg buccal 2 mg buccal Q6HP PRN nicotine 11/18/24 11/18/24 History lozenge cravings New Prescriptions to Start Prescriptions: Allergies Allergy/AdvReac Type Severity Reaction Status Date / Time No Known Allergies Allergy Verified 10/25/24 15:54 Exam Data for Last 24 hours Vital signs and Labs for Last 24 Hours: Temp Pulse Resp BP Pulse Ox O2 Del Method 98.6 F 72 15 162/86 H 98 Room Air 11/18/24 10:24 11/18/24 13:30 11/18/24 13:30 11/18/24 13:30 11/18/24 13:30 11/18/24 13:30 Laboratory Results - last 24 hr 11/18/24 10:55: WBC 13.8 H, RBC 4.04 L, Hgb 10.9 L, Hct 34.8 L, MCV 86.1, MCH 27.0, MCHC 31.3 L, RDW 14.6, Plt Count 347, MPV 10.1, Neut % (Auto) 88.2 H, Lymph % (Auto) 5.2 L, [place] % (Auto) 4.5, Eos % (Auto) 1.2, Baso % (Auto) 0.4, Neut # (Auto) 12.2 H, Lymph # (Auto) 0.7, [place] # (Auto) 0.6, Eos # (Auto) 0.2, Baso # (Auto) 0.1, Total Counted 100, Neutrophils % (Manual) 92 H, Lymphocytes % (Manual) 4 L, Monocytes % (Manual) 2, Eosinophils % (Manual) 2, Platelet Estimate Normal, Hypochromasia 1+, PT 11.8, INR 1.06, APTT 27.6, Sodium 136, Potassium 4.0, Chloride 99, Carbon Dioxide 28, Anion Gap 13.0, BUN 14, Creatinine 1.10, Estimated Creat Clear 65, Estimated GFR 66, Est GFR ( Amer) 80, Glucose 120 H, Calcium 9.6, Magnesium 1.4 L, Total Bilirubin 0.8, AST 44, ALT 21, Alkaline Phosphatase 174 H, Total Creatine Kinase 37 L, Troponin I < 0.01, NT-Pro-B Natriuret Pep 3050 H, Total Protein 7.1, Albumin 3.9, Globulin 3.2, Albumin/Globulin Ratio 1.2, Triglycerides 102, Cholesterol 80 L, LDL Cholesterol Direct < 30.00 L, VLDL Cholesterol 20, HDL Cholesterol 36 L, Cholesterol/HDL Ratio 2.2, Lipase 75, Procalcitonin 0.952, TSH 2.01, Thyroxine (T4) 10.3 11/18/24 12:12: Lactate 2.7 H I & O for Last 24 hours: Intake & Output 11/15/24 11/16/24 11/17/24 11/18/24 23:59 23:59 23:59 23:59 Weight 72.575 kg Constitutional Constitutional: no acute distress, thin, chronically ill appearing and cooperative *Routine HEENT Exam Head: Present normocephalic Eye: Present EOMI and PERRL ENT: Present mucous membranes moist *Routine Neck Exam Neck: Present supple; Absent lymphadenopathy *Routine Respiratory Exam Respiratory: Present CTA bilaterally; Absent rhonchi, wheezes or crackles *Routine Cardiovascular Exam Cardiovascular: Present RRR *Routine Abdominal Exam Abdominal: Present soft and normoactive bowel sounds; Absent tenderness or distended *Routine Rectal Exam Rectal:: deferred *Routine Genitalia Exam Genitalia:: deferred *Routine Extremities Exam Extremities: Absent cyanosis, clubbing or edema *Routine Skin Exam Skin: Present pallor and warm; Absent rash *Routine Neurological Exam Neurological: Present alert, oriented X3 and moving all extremities; Absent altered mental status Assessment and Plan *Assessment and plan (1) Adult failure to thrive: Status: Acute Category: Medical Code(s): R62.7 - Adult failure to thrive (2) Unintentional weight loss of more than 10% body weight within 6 months: Status: Acute Category: Medical Code(s): R63.4 - Abnormal weight loss (3) Liver mass, left lobe: Status: Acute Category: Medical Code(s): R16.0 - Hepatomegaly, not elsewhere classified (4) Tobacco dependence: Status: Acute Category: Medical Code(s): F17.200 - Nicotine dependence, unspecified, uncomplicated (5) Pulmonary emphysema: Status: Acute Category: Medical Code(s): J43.9 - Emphysema, unspecified (6) Ankylosing spondylitis: Status: Chronic Category: Medical Code(s): M45.9 - Ankylosing spondylitis of unspecified sites in spine (7) CKD (chronic kidney disease): Status: Acute Qualifiers: Chronic kidney disease stage: stage 3 (moderate) Chronic kidney disease stage 3 subtype: stage 3a (GFR 45-59) Qualified Code(s): N18.31 - Chronic kidney disease, stage 3a Category: Medical Code(s): N18.9 - Chronic kidney disease, unspecified (8) Type 2 diabetes mellitus with diabetic polyneuropathy, without long-term current use of insulin: Status: Chronic Category: Medical Code(s): E11.42 - Type 2 diabetes mellitus with diabetic polyneuropathy Plan 69-year-old male with unintentional weight loss over the past 6 to 9 months. Complaining of early satiety and difficulty tolerating solid food. Workup in the ER concerning for mass on liver on CT. Discussed case with ER physician, request admission for further workup and evaluation with monitoring overnight given weight loss and concern for ability to tolerate p.o. intake. I agreed to admit for further management. MRI obtained on admission to evaluate liver lesion. Will p.o. challenge given complaint of satiety and difficulty swallowing. Problems addressed as follows: Unintentional weight loss Failure to thrive Liver lesion -Patient complaining of weight loss, early satiety, difficulty swallowing solids. Differential includes undiagnosed cancer, achalasia, heart failure (BNP greater than 3000), among other etiologies. -Per my review of CT, lesion on liver necessitating MRI. MRI obtained showing 16 x 8 cm lesion. Highly suspicious for HCC. -AFP, CEA, CA 19-9 ordered and pending. Alkaline phosphatase marginally elevated above upper limit of normal. Bilirubin, AST, ALT within normal limits. Repeat CBC, CMP, magnesium ordered for the morning -Synthetic function of liver intact with normal INR and PT -Will p.o. challenge. Consider outpatient GI follow-up for EGD -Holding apixaban out of potential need for EGD or biopsy of liver lesion Hypertension: - Elevated BNP, concerning for CHF. Echo ordered for the morning. -Continue irbesartan 300 mg daily and verapamil 240 mg extended release daily Diabetes: A1c 5.3. Fingersticks ACHS with sliding scale insulin. Will discontinue metformin given complaint of diarrhea. Continue Invokana 3 mg daily Continue tamsulosin 8 mg nightly for BPH Continue Effexor 75 mg extended release daily for mood Continue pantoprazole for GERD Full code Holding anticoagulation pending possible biopsy Regular diet
[2024-11-18] MEDS: CEFTRIAXONE SODIUM 2 GM in 0.9 % SODIUM CHLORIDE 100 ML IV (14:21)
--- NOTE | 2024-11-18 14:23 | HMH.PHAINT1 ---
Pharmacy Intervention Comments: MEDICATION RECONCILIATION COMPLETED ON PATIENT USING EXTERNAL FILL HISTORY FROM PHARMACY, ANGÉLICA REPORT, AND LIST FROM PAIN MANAGMENT. -DAVE CHANDLER, ASHLEIGHD
[2024-11-18 14:44] LABS: Bacteria,Urine Trace /lpf; Squamous Epithelial Cell,Urine Occasional #/hpf (0-5); WBC,Urine Occasional #/hpf (0-3)
[2024-11-18 14:53] LABS: Hemoglobin A1C 5.3 % (4.0-6.0)
[2024-11-18 15:02] LABS: Activated Partial Thrombo Time 26.8 seconds (22.8-30.6); INR 1.05 (0.9-1.1); Prothrombin Time 11.7 seconds (10.1-12.5)
--- NOTE | 2024-11-18 15:06 | PC.NURSE ---
Report called to [facility] 2nd floor
--- NOTE | 2024-11-18 15:07 | PC.NURSE ---
received report from Quita MADSEN
[2024-11-18 15:17] LABS: Troponin I < 0.01 ng/ml (0.00-0.034)
--- NOTE | 2024-11-18 15:41 | MR_ITS ---
PROCEDURE INFORMATION: Exam: MR Abdomen Without and With Contrast; Liver Exam date and time: 11/18/2024 4:06 PM Age: 69 years old Clinical indication: Nausea and other: Weight loss; Additional info: Eval liver , abdomen, and pancreas TECHNIQUE: Imaging protocol: MR Abdomen with and without intravenous contrast. Exam focused on the liver. Contrast material: PROHANCE; Contrast volume: 15 ml; Contrast route: IV; COMPARISON: CT ABDOMEN PELVIS W CON 18/11/2024 11:46 FINDINGS: Tubes, catheters and devices: Periportal and para-aortic lymphadenopathy seen on CT are difficult to identify on this MR because of metallic artifact from the sacral nerve stimulator. Liver: Most of the left hepatic lobe and part of the anterior right hepatic lobe are filled with a complex mass lesion. On image 13 series 9, this measures 16.5 x 7.8 cm. There are innumerable cystic components within this mass. There is arterial enhancement of most of the mass on image 45 series 15, though there is no obvious early washout. Hepatic cirrhosis with portal hypertension. Gallbladder and biliary ducts: Gallbladder is absent. Pancreas: Unremarkable. Spleen: Mild splenomegaly. Kidneys: Multiple bilateral renal cortical cysts measuring up to 16 mm most likely representing simple cyst. Intraperitoneal space: Small amount of ascites, which is nonspecific. Lymph nodes: No enlarged nodes. Bones/joints: Unremarkable. No suspicious lesions. Other findings: There is significant artifact from the patient's sacral nerve stimulator that limits evaluation of the area of interest. IMPRESSION: 1. There is significant artifact from the patient's sacral nerve stimulator that limits evaluation of the area of interest. 2. Large, complex infiltrating hepatic mass has imaging characteristics worrisome for malignancy, such as hepatocellular carcinoma or cholangiocarcinoma. Regenerative nodules can have a similar appearance, but are much less likely. 3. Periportal and para-aortic lymphadenopathy seen on CT are difficult to identify on this MR because of metallic artifact from the sacral nerve stimulator. The presence of lymphadenopathy is worrisome for metastatic disease. Reaction to viral hepatitis is also possible. 4. Hepatic cirrhosis with portal hypertension. COMMENTS: Consistent with the [employer]'s Incidental Findings Committee white paper (J Am Rajesh Radiol 2018): Any incidental renal lesion less than 1 cm or classified as too small to characterize, or any incidental cystic renal lesion characterized as simple-appearing, is likely benign. No follow-up imaging is recommended for these lesions per consensus recommendations based on imaging criteria.
[2024-11-18 16:16] LABS: Reflex Lactic Add Lactic Reflex
[2024-11-18] MEDS: 0.9 % SODIUM CHLORIDE 50 ML VIAL IV (16:37)
[2024-11-18] MEDS: GADOTERIDOL INJ 20ML SYRINGE 15 ML IV (16:37)
[2024-11-18 18:24] LABS: Lactic Acid Follow Up (RFLX 1) 3.1 mmol/L (0.7-2.1)
[2024-11-18 19:37] LABS: Troponin I < 0.01 ng/ml (0.00-0.034)
[2024-11-18 19:59] LABS: Reflex Lactic (2 hrs) Add Lactic Reflex
[2024-11-18 20:28] LABS: Lactic Acid Follow up (RFLX 2) 1.7 mmol/L (0.7-2.1)
[2024-11-18] MEDS: ATORVASTATIN 40MG TABLET 80 MG PO (20:56)
[2024-11-18] MEDS: PANTOPRAZOLE 40MG TABLET 40 MG PO (20:57)
[2024-11-18] MEDS: TAMSULOSIN 0.4MG CAPSULE 0.8 MG PO (20:57)
[2024-11-18] MEDS: POLYETHYLENE GLYCOL 3350 17 GM PACKET PO (20:57)
[2024-11-18 21:21] LABS: POC Glucose,Bedside 98 (70-110)
[2024-11-19 04:00] VITALS: BP 156/85; PULSE 75; RESP 18; TEMP 36.9; O2SAT 98; BMI 23.1
--- NOTE | 2024-11-19 04:00 | PC.NURSE ---
69 yo male pt admitted with FTT and liver mass. He is A/O X 4, pleasant and cooperative. Pt is able to ambulate to BR with standby assist. Pt has denied pain, SOA or Nausea this shift. He has rested comfortably throughout the night. Pt was assisted to BR in the night by [employer] when his IV fell out of his arm. Pressure held and dressing applied. Pt has tolerated PO intake and reports LBM as 11/17/24. FSBS at 9 pm was 98. VS WNL for pt, 02 sats above 90 on RA
[2024-11-19 06:12] LABS: POC Glucose,Bedside 92 (70-110)
[2024-11-19] MEDS: FLUTICASONE PROPIONATE IH (06:17)
[2024-11-19] MEDS: SALMETEROL IH (06:17)
[2024-11-19] MEDS: [UNRECOGNIZED DRUG - OTHER] IH (06:17)
--- NOTE | 2024-11-19 06:18 | PC.NURSE ---
Advair inhaler given, medication would not scan due to being home med.
[2024-11-19 07:08] LABS: HCV Ab Non Reactive (Non Reactive)
[2024-11-19 07:10] LABS: Basophils # 0.1 K/mm3 (0-0.2); Basophils % 0.4 % (0.1-2.0); Eosinophils # 0.2 K/mm3 (0.0-0.4); Eosinophils % 1.4 % (0.1-12.0); Hematocrit 30.4 % (42.0-52.0); Lymphocytes # 1.3 K/mm3 (0.7-4.5); Lymphocytes % 9.8 % (10-50); Mean Corpuscular HGB Conc 31.9 g/dL (31.8-35.4); Mean Corpuscular Hemoglobin 26.7 pg (27.0-31.2); Mean Corpuscular Volume 83.7 fl (80-94); Mean Platelet Volume 10.5 fl (7.4-10.4); Monocytes # 0.8 K/mm3 (0.1-1.0); Monocytes % 6.1 % (1.7-9.3); Neutrophils # 10.5 K/mm3 (1.8-7.8); Neutrophils % 81.9 % (37.0-80.0); Platelet Count 315 K/mm3 (142-424); Red Blood Count 3.63 M/mm3 (4.60-6.20); White Blood Count 12.9 K/mm3 (4.8-10.8)
[2024-11-19 07:28] LABS: Red Cell Distribution Width 14.4 % (11.5-17.5)
[2024-11-19 07:36] LABS: Albumin Level 3.1 g/dl (3.5-5.0); Chloride 100 mmol/L (98-107); Potassium 4.4 mmoL/L (3.5-5.1); Sodium 130 mmol/L (136-145)
[2024-11-19 07:38] LABS: Blood Urea Nitrogen 14 mg/dl (9-20)
[2024-11-19 07:39] LABS: Alanine Aminotransferase 16 U/L (12-78); Alkaline Phosphatase 165 U/L (38-126); Anion Gap 8.4 mEq/L (5-15); Aspartate Amino Transferase 41 U/L (17-59); Bilirubin,Total 0.5 mg/dl (0.2-1.3); Calcium 8.9 mg/dl (8.4-10.2); Carbon Dioxide 26 mmol/L (22.0-30.0); Creatinine Clearance Estimated 66 mL/min (50-200); Estimated Glomerular Filt Rate 66 ml/min (>60); GFR (African American) 80 ML/MIN (>60); Glucose 83 mg/dl (74-100); Magnesium 2.2 mg/dl (1.6-2.3); Total Protein,Serum 6.1 g/dl (6.3-8.2)
[2024-11-19 07:49] LABS: Hemoglobin 9.7 g/dL (14.1-18.0)
[2024-11-19 08:00] VITALS: BP 155/72; PULSE 81; RESP 20; TEMP 36.4; O2SAT 99
[2024-11-19] MEDS: VENLAFAXINE XR 75MG CAPSULE 75 MG PO (09:05)
[2024-11-19] MEDS: predniSONE 5MG TAB 5 MG PO (09:05)
[2024-11-19] MEDS: IRBESARTAN 300MG TABLET 300 MG PO (09:05)
--- NOTE | 2024-11-19 09:06 | EXP.DC.SUM ---
General Admission date:: 11/18/24 Discharge date: 11/19/24 HPI HPI HPI: Mr. Lopes is a pleasant 69-year-old male who presents to the ER because of worsening fatigue and poor p.o. intake. States he has lost about 60 pounds over the last 6 to 9 months. He has been having decreasing oral intake with increased intolerance of solid food. Appetite has been decreased with intermittent nausea and diarrhea. Having occasional night sweats. Feeling more dyspneic with exertion over the past several days. told him he the needed to come to the ER for evaluation or go see his doctor. On presentation, patient is ill-appearing. Review of chart shows that he is dropped from 102 kilograms this time last year to 72 kg today. Denies any chest pain, syncope, focal neurologic symptoms. Denies any increased swelling in his abdomen. Does admit to smoking and has smoked for several decades. Has been cutting back lately. Does not drink regularly, has not had a beer in years. Does have a history of COPD, ankylosing spondylitis, diabetes, hypertension and hyperlipidemia. Currently on anticoagulation for previous blood clots. On further interview, patient admits to being told he had a fatty liver about a decade ago. Workup in the ER with mild lab abnormalities including BNP of 3000, marginal elevation of alkaline phosphatase above upper limit of normal. Otherwise coagulation studies, kidney function, bilirubin, AST, ALT all normal. Mild anemia with hemoglobin of 11. White count 13 but no focal source of infection on imaging. CT of abdomen did show however concern for a liver mass. Medicine was consulted for further workup of patient's fatigue, unexplained weight loss, and liver mass. MRI ordered at time of admission. Formal read still pending. Patient states he has been having an increased difficulty with solids and occasionally with liquids. Has had a poor appetite. is at bedside helps supplement history. She was worried about his progressive fatigue and wanted him to be evaluated. He is alert and oriented x 4. Interested in trying to eat the tray that was placed in front of him for dinner. Stable on room air. Blood pressure mildly elevated with systolics in the 160s. No acute complaints at this time. Of note, A1c 5.3. Diabetes very well-controlled. Recently started on Invokana per his report. Hospital Course Hospital Course Hospital Course: 69-year-old male with unintentional weight loss over the past 6 to 9 months. Complaining of early satiety and difficulty tolerating solid food. Workup in the ER concerning for mass on liver on CT. Discussed case with ER physician, request admission for further workup and evaluation with monitoring overnight given weight loss and concern for ability to tolerate p.o. intake. I agreed to admit for further management. MRI obtained on admission to evaluate liver lesion. Patient tolerated p.o. intake during admission. Overall feeling better with observation. Workup concerning for liver cancer. Referred to oncology for close follow-up and further discussion about workup and treatment. Problems addressed as follows: Unintentional weight loss Failure to thrive Liver lesion, suspected cancer -Patient complaining of weight loss, early satiety, difficulty swallowing solids. Differential includes undiagnosed cancer, achalasia, heart failure (BNP greater than 3000), among other etiologies. Per my review of CT, lesion on liver necessitating MRI. MRI obtained showing 16 x 8 cm lesion. Highly suspicious for HCC. AFP significantly elevated at 2285, CEA elevated at 9, CA 19-9 elevated to 89. These findings highly suspicious for hepatocellular carcinoma or hepatic cholangiocarcinoma. Referred to oncology, appointment on the . Alkaline phosphatase marginally elevated above upper limit of normal. Bilirubin, AST, ALT within normal limits. Patient has mild anemia that is stable. Synthetic function of liver appears to be intact with normal INR PTT. Given tolerance of p.o. intake, discharge home for further management as an outpatient. Recommended high-protein supplementation with protein shakes, Ensure, boost, Premier protein, or similar products. Holding Eliquis at this time pending potential need for EGD or biopsy of liver. -Patient additionally was complaining of early satiety. Therefore recommended to GI for consideration for EGD. Hypertension: - Elevated BNP, concerning for CHF. Echo obtained. Formal read still pending at discharge. Continue irbesartan 300 mg daily and verapamil 240 mg extended release daily Diabetes: A1c 5.3. Diabetes well-controlled. Recommend discontinuing metformin given his diarrhea. Continue Invokana 3 mg daily Continue tamsulosin 8 mg nightly for BPH Continue Effexor 75 mg extended release daily for mood Continue pantoprazole for GERD Total time spent on discharge 42 minutes in counseling, documentation, chart review, and direct care with patient. Exam Data for Last 24 hours Vital signs and Labs for Last 24 Hours: Temp Pulse Resp BP Pulse Ox O2 Del Method 98.4 F 75 18 156/85 H 98 Room Air 11/19/24 04:00 11/19/24 04:00 11/19/24 04:00 11/19/24 04:00 11/19/24 04:00 11/19/24 06:53 Laboratory Results - last 24 hr 11/18/24 10:55: WBC 13.8 H, RBC 4.04 L, Hgb 10.9 L, Hct 34.8 L, MCV 86.1, MCH 27.0, MCHC 31.3 L, RDW 14.6, Plt Count 347, MPV 10.1, Neut % (Auto) 88.2 H, Lymph % (Auto) 5.2 L, [place] % (Auto) 4.5, Eos % (Auto) 1.2, Baso % (Auto) 0.4, Neut # (Auto) 12.2 H, Lymph # (Auto) 0.7, [place] # (Auto) 0.6, Eos # (Auto) 0.2, Baso # (Auto) 0.1, Total Counted 100, Neutrophils % (Manual) 92 H, Lymphocytes % (Manual) 4 L, Monocytes % (Manual) 2, Eosinophils % (Manual) 2, Platelet Estimate Normal, Hypochromasia 1+, PT 11.8, INR 1.06, APTT 27.6, Sodium 136, Potassium 4.0, Chloride 99, Carbon Dioxide 28, Anion Gap 13.0, BUN 14, Creatinine 1.10, Estimated Creat Clear 65, Estimated GFR 66, Est GFR ( Amer) 80, Glucose 120 H, Hemoglobin A1c 5.3, Calcium 9.6, Magnesium 1.4 L, Total Bilirubin 0.8, AST 44, ALT 21, Alkaline Phosphatase 174 H, Total Creatine Kinase 37 L, Troponin I < 0.01, NT-Pro-B Natriuret Pep 3050 H, Total Protein 7.1, Albumin 3.9, Globulin 3.2, Albumin/Globulin Ratio 1.2, Triglycerides 102, Cholesterol 80 L, LDL Cholesterol Direct < 30.00 L, VLDL Cholesterol 20, HDL Cholesterol 36 L, Cholesterol/HDL Ratio 2.2, Lipase 75, Procalcitonin 0.952, TSH 2.01, Thyroxine (T4) 10.3, Hepatitis C Antibody Non reactive 11/18/24 12:12: Lactate 2.7 H 11/18/24 13:42: Urine Color Yellow, Urine Appearance Clear, Urine pH 6.5, Ur Specific [place] 1.010, Urine Protein Trace, Urine Glucose (UA) 3+, Urine Ketones Negative, Urine Blood Negative, Urine Nitrate Negative, Urine Bilirubin Negative, Urine Urobilinogen 0.2, Ur Leukocyte Esterase Negative, Urine RBC None, Urine WBC Occasional, Ur Squamous Epith Cells Occasional, Urine Bacteria Trace 11/18/24 14:30: PT 11.7, INR 1.05, APTT 26.8, Troponin I < 0.01 11/18/24 17:35: Lactate 3.1 H, Troponin I < 0.01 11/18/24 20:11: Lactate 1.7 11/18/24 20:49: POC Glucose 98 11/19/24 06:05: WBC 12.9 H, RBC 3.63 L, Hgb 9.7 L D, Hct 30.4 L, MCV 83.7, MCH 26.7 L, MCHC 31.9, RDW 14.4, Plt Count 315, MPV 10.5 H, Neut % (Auto) 81.9 H, Lymph % (Auto) 9.8 L, [place] % (Auto) 6.1, Eos % (Auto) 1.4, Baso % (Auto) 0.4, Neut # (Auto) 10.5 H, Lymph # (Auto) 1.3, [place] # (Auto) 0.8, Eos # (Auto) 0.2, Baso # (Auto) 0.1, Sodium 130 L, Potassium 4.4, Chloride 100, Carbon Dioxide 26, Anion Gap 8.4, BUN 14, Creatinine 1.10, Estimated Creat Clear 66, Estimated GFR 66, Est GFR ( Amer) 80, Glucose 83 D, POC Glucose 92, Calcium 8.9, Magnesium 2.2 D, Total Bilirubin 0.5, AST 41, ALT 16, Alkaline Phosphatase 165 H, Total Protein 6.1 L, Albumin 3.1 L D, Globulin 3.0, Albumin/Globulin Ratio 1.0 L I & O for Last 24 hours: Intake & Output 11/16/24 11/17/24 11/18/24 11/19/24 23:59 23:59 23:59 23:59 Intake Total 300 / 300 Output Total 0 / 0 Balance 300 / 300 Weight 72.575 kg 73.301 kg Constitutional Constitutional: no acute distress, thin, chronically ill appearing and cooperative *Routine HEENT Exam Head: Present normocephalic Eye: Present EOMI and PERRL ENT: Present mucous membranes moist *Routine Neck Exam Neck: Present supple; Absent lymphadenopathy *Routine Respiratory Exam Respiratory: Present CTA bilaterally and able to speak in complete sentences; Absent rhonchi, wheezes or crackles *Routine Cardiovascular Exam Cardiovascular: Present RRR and murmur *Routine Abdominal Exam Abdominal: Present soft and normoactive bowel sounds; Absent tenderness *Routine Rectal Exam Patient deferred: visual exam *Routine Exam Patient deferred: penile exam *Routine Extremities Exam Extremities: Absent cyanosis, clubbing or edema *Routine Skin Exam Skin: Present intact, pallor and warm; Absent rash *Routine Neurological Exam Neurological: Present alert, oriented X3 and moving all extremities; Absent altered mental status Results Data Completed and Pending Labs on day of discharge: Labs from last 24 hours 11/19/24 11/18/24 11/18/24 06:05 20:49 20:11 WBC 12.9 H RBC 3.63 L Hgb 9.7 L D Hct 30.4 L MCV 83.7 MCH 26.7 L MCHC 31.9 RDW 14.4 Plt Count 315 MPV 10.5 H Neut % (Auto) 81.9 H Lymph % (Auto) 9.8 L [place] % (Auto) 6.1 Eos % (Auto) 1.4 Baso % (Auto) 0.4 Neut # (Auto) 10.5 H Lymph # (Auto) 1.3 [place] # (Auto) 0.8 Eos # (Auto) 0.2 Baso # (Auto) 0.1 Total Counted Neutrophils % (Manual) Lymphocytes % (Manual) Monocytes % (Manual) Eosinophils % (Manual) Platelet Estimate Hypochromasia PT INR APTT Sodium 130 L Potassium 4.4 Chloride 100 Carbon Dioxide 26 Anion Gap 8.4 BUN 14 Creatinine 1.10 Estimated Creat Clear 66 Estimated GFR 66 Est GFR ( Amer) 80 Glucose 83 D POC Glucose 92 98 Hemoglobin A1c Lactate 1.7 Calcium 8.9 Magnesium 2.2 D Total Bilirubin 0.5 AST 41 ALT 16 Alkaline Phosphatase 165 H Total Creatine Kinase Troponin I NT-Pro-B Natriuret Pep Total Protein 6.1 L Albumin 3.1 L D Globulin 3.0 Albumin/Globulin Ratio 1.0 L Triglycerides Cholesterol LDL Cholesterol Direct VLDL Cholesterol HDL Cholesterol Cholesterol/HDL Ratio Lipase Procalcitonin TSH Thyroxine (T4) Urine Color Urine Appearance Urine pH Ur Specific [place] Urine Protein Urine Glucose (UA) Urine Ketones Urine Blood Urine Nitrate Urine Bilirubin Urine Urobilinogen Ur Leukocyte Esterase Urine RBC Urine WBC Ur Squamous Epith Cells Urine Bacteria Hepatitis C Antibody 11/18/24 11/18/24 11/18/24 17:35 14:30 13:42 WBC RBC Hgb Hct MCV MCH MCHC RDW Plt Count MPV Neut % (Auto) Lymph % (Auto) [place] % (Auto) Eos % (Auto) Baso % (Auto) Neut # (Auto) Lymph # (Auto) [place] # (Auto) Eos # (Auto) Baso # (Auto) Total Counted Neutrophils % (Manual) Lymphocytes % (Manual) Monocytes % (Manual) Eosinophils % (Manual) Platelet Estimate Hypochromasia PT 11.7 INR 1.05 APTT 26.8 Sodium Potassium Chloride Carbon Dioxide Anion Gap BUN Creatinine Estimated Creat Clear Estimated GFR Est GFR ( Amer) Glucose POC Glucose Hemoglobin A1c Lactate 3.1 H Calcium Magnesium Total Bilirubin AST ALT Alkaline Phosphatase Total Creatine Kinase Troponin I < 0.01 < 0.01 NT-Pro-B Natriuret Pep Total Protein Albumin Globulin Albumin/Globulin Ratio Triglycerides Cholesterol LDL Cholesterol Direct VLDL Cholesterol HDL Cholesterol Cholesterol/HDL Ratio Lipase Procalcitonin TSH Thyroxine (T4) Urine Color Yellow Urine Appearance Clear Urine pH 6.5 Ur Specific [place] 1.010 Urine Protein Trace Urine Glucose (UA) 3+ Urine Ketones Negative Urine Blood Negative Urine Nitrate Negative Urine Bilirubin Negative Urine Urobilinogen 0.2 Ur Leukocyte Esterase Negative Urine RBC None Urine WBC Occasional Ur Squamous Epith Cells Occasional Urine Bacteria Trace Hepatitis C Antibody 11/18/24 11/18/24 12:12 10:55 WBC 13.8 H RBC 4.04 L Hgb 10.9 L Hct 34.8 L MCV 86.1 MCH 27.0 MCHC 31.3 L RDW 14.6 Plt Count 347 MPV 10.1 Neut % (Auto) 88.2 H Lymph % (Auto) 5.2 L [place] % (Auto) 4.5 Eos % (Auto) 1.2 Baso % (Auto) 0.4 Neut # (Auto) 12.2 H Lymph # (Auto) 0.7 [place] # (Auto) 0.6 Eos # (Auto) 0.2 Baso # (Auto) 0.1 Total Counted 100 Neutrophils % (Manual) 92 H Lymphocytes % (Manual) 4 L Monocytes % (Manual) 2 Eosinophils % (Manual) 2 Platelet Estimate Normal Hypochromasia 1+ PT 11.8 INR 1.06 APTT 27.6 Sodium 136 Potassium 4.0 Chloride 99 Carbon Dioxide 28 Anion Gap 13.0 BUN 14 Creatinine 1.10 Estimated Creat Clear 65 Estimated GFR 66 Est GFR ( Amer) 80 Glucose 120 H POC Glucose Hemoglobin A1c 5.3 Lactate 2.7 H Calcium 9.6 Magnesium 1.4 L Total Bilirubin 0.8 AST 44 ALT 21 Alkaline Phosphatase 174 H Total Creatine Kinase 37 L Troponin I < 0.01 NT-Pro-B Natriuret Pep 3050 H Total Protein 7.1 Albumin 3.9 Globulin 3.2 Albumin/Globulin Ratio 1.2 Triglycerides 102 Cholesterol 80 L LDL Cholesterol Direct < 30.00 L VLDL Cholesterol 20 HDL Cholesterol 36 L Cholesterol/HDL Ratio 2.2 Lipase 75 Procalcitonin 0.952 TSH 2.01 Thyroxine (T4) 10.3 Urine Color Urine Appearance Urine pH Ur Specific [place] Urine Protein Urine Glucose (UA) Urine Ketones Urine Blood Urine Nitrate Urine Bilirubin Urine Urobilinogen Ur Leukocyte Esterase Urine RBC Urine WBC Ur Squamous Epith Cells Urine Bacteria Hepatitis C Antibody Non reactive DS: Diagnosis Discharge Diagnosis (1) Adult failure to thrive: Status: Acute Code(s): R62.7 - Adult failure to thrive (2) Unintentional weight loss of more than 10% body weight within 6 months: Status: Acute Code(s): R63.4 - Abnormal weight loss (3) Liver mass, left lobe: Status: Acute Code(s): R16.0 - Hepatomegaly, not elsewhere classified (4) Tobacco dependence: Status: Acute Code(s): F17.200 - Nicotine dependence, unspecified, uncomplicated (5) Pulmonary emphysema: Status: Acute Code(s): J43.9 - Emphysema, unspecified (6) Ankylosing spondylitis: Status: Chronic Code(s): M45.9 - Ankylosing spondylitis of unspecified sites in spine (7) CKD (chronic kidney disease): Status: Acute Code(s): N18.9 - Chronic kidney disease, unspecified Qualifiers: Chronic kidney disease stage: stage 3 (moderate) Chronic kidney disease stage 3 subtype: stage 3a (GFR 45-59) Qualified Code(s): N18.31 - Chronic kidney disease, stage 3a (8) Type 2 diabetes mellitus with diabetic polyneuropathy, without long-term current use of insulin: Status: Chronic Code(s): E11.42 - Type 2 diabetes mellitus with diabetic polyneuropathy (9) Severe protein-calorie malnutrition: Status: Acute Code(s): E43 - Unspecified severe protein-calorie malnutrition Meds Home Medications and Allergies Home Medications ?Medication ?Instructions ?Recorded ?Confirmed ?Type atorvastatin 80 mg tablet 80 mg PO HS 90 days 01/06/18 11/18/24 History omeprazole 20 mg capsule,delayed 20 mg PO DAILY 90 days 01/06/18 11/18/24 History release prednisone 5 mg tablet 5 mg PO DAILY 90 days 01/06/18 11/18/24 History tamsulosin 0.4 mg capsule 0.8 mg PO HS #0 caps 11/04/19 11/18/24 History venlafaxine 75 mg capsule,extended 75 mg PO DAILY 02/28/21 11/18/24 History release 24 hr verapamil 240 mg tablet,extended 240 mg PO DAILY 05/31/21 11/18/24 History release apixaban 5 mg tablet (Eliquis) 5 mg PO BID #60 tabs 04/30/24 11/18/24 Rx canagliflozin 300 mg tablet 300 mg PO DAILY 04/30/24 11/18/24 History (Invokana) ipratropium 20 mcg-albuterol 100 2 puff inhalation QID PRN 04/30/24 11/18/24 History mcg/actuation mist for inhalation Shortness Of Breath (Combivent Respimat) albuterol sulfate 90 mcg/actuation 2 inh inhalation QIDP PRN 11/18/24 11/18/24 History aerosol inhaler shortness of breath or wheezing fluticasone propionate 115 2 puff inhalation BID 11/18/24 11/18/24 History mcg-salmeterol 21 mcg/actuation HFA inhaler (Advair HFA) morphine (PF) 1 mg/mL injection See Rx Instructions .Route 11/18/24 11/18/24 History solution .COMPLEX CONTINUOUS PUMP nicotine (polacrilex) 2 mg buccal 2 mg buccal Q6HP PRN nicotine 11/18/24 11/18/24 History lozenge cravings irbesartan 300 mg tablet 300 mg PO DAILY 30 days #30 tabs 11/19/24 Rx New Prescriptions to Start Prescriptions: Haider Bush Allergies Allergy/AdvReac Type Severity Reaction Status Date / Time No Known Allergies Allergy Verified 10/25/24 15:54 Discharge Plan Disposition Patient Disposition: Home Health Service Condition: Fair Discharge Order Discharge Orders: Discharge Order (Routine); Ordered 11/19/24 Ordered By: Haider Blake Follow up Plan Follow up with: Vince Turner II, MD [Staff Physician] - 12/01/24 11:45 am (1-2 weeks) Manpreet Alcantara MD [Staff Physician] - 11/23/24 11:30 am Rick Barton MD [Primary Care Provider] - 11/29/24 4:00 pm Prescriptions/Medication Reconciliation: New irbesartan 300 mg Tablet 300 mg PO DAILY 30 Days Qty: 30 0RF Continued omeprazole 20 mg capsule,delayed release(DR/EC) 20 mg PO DAILY 90 Days Patient Comments: prednisone 5 mg tablet 5 mg PO DAILY 90 Days Patient Comments: atorvastatin 80 mg tablet 80 mg PO HS 90 Days Patient Comments: venlafaxine 75 mg capsule,extended release 24hr 75 mg PO DAILY tamsulosin 0.4 mg capsule 0.8 mg PO HS Qty: 0 verapamil 240 mg tablet extended release 240 mg PO DAILY Invokana 300 mg tablet 300 mg PO DAILY Combivent Respimat 20-100 mcg/actuation mist 2 puff INHALATION QID PRN (Reason: Shortness Of Breath) albuterol sulfate 90 mcg/actuation HFA aerosol inhaler 2 inh inhalation QIDP PRN (Reason: shortness of breath or wheezing) nicotine (polacrilex) 2 mg lozenge 2 mg buccal Q6HP PRN (Reason: nicotine cravings) fluticasone propion-salmeterol [Advair HFA] 115-21 mcg/actuation HFA aerosol inhaler 2 puff inhalation BID morphine (PF) 1 mg/mL Solution See Rx Instructions .ROUTE .COMPLEX Rx Instructions: CONTINUOUS PUMP Held Eliquis 5 mg tablet 5 mg PO BID Qty: 60 1RF Hold Instructions: pending possible biopsy or egd Rx Instructions: start after completing the started pack Discontinued metformin 500 mg tablet 500 mg PO BID Qty: 0 losartan 100 MG tablet 100 mg PO DAILY Problem Reconciliation Problems Reviewed?: Yes Patient Discharge Instructions ACTIVITY: Continue current activity DIET: continue same diet Patient Instructions: [id number] Print Language: Hungarian Providers Primary Care Provider: Rick Barton Admtheresa Provider: Haider Blake Attending Provider: Haider Blake
--- NOTE | 2024-11-19 11:37 | SW/DCPLANNER ---
thought patient could benefit from home health services. Patient declines these at this time. CALE Nix
--- NOTE | 2024-11-19 17:15 | CA_ITS ---
APPROVED REPORT EXAM: Comprehensive 2D, Doppler, and color-flow Echocardiogram Mortar Mixer: Erendira Leyva CRT Ht: 5 ft 10 in Wt: 161lbs BSA: 1.90 BP: 162/86 mmHg Indications: Congestive Heart Failure, COPD, Diabetes, Hyperlipidemia, Hypertension/HDD, smoker 2D Dimensions LA Volume 28.70 mL LA Volume Index 14.70 mL/m2 (M/F) 16-34 M-Mode Dimensions RVDd 2.07 cm (0.9-2.6) LA Diam 2.96 cm (1.9-4.0) LVDd 5.40 cm (3.5-5.7) LVDs 3.40 cm (3.5-5.7) IVSd 1.86 cm (0.6-1.1) PWd 1.00 cm (0.6-1.1) EF (Teich) 66.50% FS 37.00% EDV (Teich) 141.30 mL TAPSE 1.58 (<1.7) ESV (Teich) 47.40 mL LV Diastology E Decel Time 150 (160-240 msec) E/A Ratio 0.32 MED A' 8.90 cm/s LAT A' 13.40 cm/s Aortic Valve AO Peak GR. 8.10 mmHg Mitral Valve MV E Max Chidi. 36.0 (40-130 cm/s) MV A Velocity 111.0 (40-130 cm/s) E/A Ratio 0.32 MV PHT 44.0 ms Tricuspid Valve TR P. Velocity 237.00 cm/s RAP Estimate 10.00 mmHg RVSP 32.50 mmHg Left Ventricle The left ventricle is normal size. The left ventricular systolic function is normal. The left ventricular ejection fraction is within the normal range. There is increased LV wall thickness. There is normal LV segmental wall motion. Transmitral Doppler flow pattern suggests impaired LV relaxation. LVEF is 55%. Right Ventricle The right ventricle is mildly dilated. The right ventricular systolic function is normal. Atria The left atrium is mildly dilated. The right atrium is mildly dilated. There is no Doppler evidence of interatrial shunt. Aortic Valve Aortic valve is mildly thickened. There is no aortic valvular stenosis. Trace aortic regurgitation is present. Mitral Valve The mitral valve is normal in structure. No evidence of mitral valve stenosis. Trace mitral regurgitation. Tricuspid Valve The tricuspid valve leaflets are thin and pliable. Trace tricuspid regurgitation. There is insufficient TR jet to estimate RVSP. Pulmonic Valve The pulmonary valve is normal in structure. Trace pulmonic regurgitation. Great Vessels The aortic root is normal in size. The ascending aorta is normal in size. IVC is normal in size and collapses >50% with inspiration. Pericardium There is no pericardial effusion. Other Information Study Quality: Fair Conclusion Normal biventricular systolic function. Mild RV dilation. Mild biatrial dilation. No significant valvular stenosis or regurgitation. Electronically signed by : Connie Webb MD 12/06/2024 10:14:24
[2024-11-20 07:08] LABS: HBsAg Screen Negative (Negative); HCV Ab Non Reactive (Non Reactive); Hep A Ab, IGM Negative (Negative); Hep B Core Ab, IgM Negative (Negative)
[2024-11-20 09:16] LABS: CA 19-9 89 U/mL (0-35); CEA 9.1 ng/mL (0.0-4.7)
--- NOTE | 2024-11-22 11:31 | SW/DCPLANNER ---
Spoke with patient on the phone. Patient stated he is doing very well. Patient stated that he is aware of his upcoming appointments. Patient stated that his new medication was brought to him before his discharge. Patient stated that he has no concerns or questions at this time. Stewart Munroe
== END 2024-11-19 13:46 | disposition home or self-care (01) ==
LOC: ER 13:49 → 2ND 13:52
PROVIDERS: Admitting Provider Internal Medicine Adolescent Medicine; Emergency Provider Emergency Medicine; PCP Internal Medicine Adolescent Medicine; Visit Provider Internal Medicine Adolescent Medicine
DX: I51.7 Cardiomegaly (principal); I12.9 Hypertensive chronic kidney disease with stage 1 through stage 4 chronic kidney disease, or unspecified chronic kidney disease; E11.22 Type 2 diabetes mellitus with diabetic chronic kidney disease; N18.31 Chronic kidney disease, stage 3a; J43.9 Emphysema, unspecified; E78.5 Hyperlipidemia, unspecified; R62.7 Adult failure to thrive; R63.4 Abnormal weight loss; R16.0 Hepatomegaly, not elsewhere classified; M45.9 Ankylosing spondylitis of unspecified sites in spine; E43 Unspecified severe protein-calorie malnutrition; Z68.23 Body mass index [BMI] 23.0-23.9, adult; F17.210 Nicotine dependence, cigarettes, uncomplicated; Z86.718 Personal history of other venous thrombosis and embolism; Z79.01 Long term (current) use of anticoagulants; Z79.51 Long term (current) use of inhaled steroids; Z82.3 Family history of stroke; Z79.84 Long term (current) use of oral hypoglycemic drugs
CPT/HCPCS: 36415; 71260; 74177; 74183; 80053; 80061; 80074; 81001; 82105; 82378; 82550; 82962; 83036; 83605; 83690; 83735; 83880; 84145; 84436; 84443; 84484; 85007; 85025; 85027; 85610; 85730; 86301; 86803; 93005; 93306; 94640; 99291; A9576; G0378; J0696; J3475; J7120; J7512; Q9967